=== PATIENT | female | born 1980 ===

== ENCOUNTER 2020-08-19 09:43 | Outpatient (REF) | payer OTHER, SELFPAY ==
--- NOTE | 2020-08-19 09:56 | EMG_ITS ---
HISTORY OF PRESENT ILLNESS: This is a 40-year-old woman with bilateral, right greater than left upper extremity pain and numbness for several years. She has a history of diabetes and is on oral antidiabetic agents. PHYSICAL EXAMINATION: On examination, she is alert and oriented with cranial nerves II through XII are normal. Muscle tone and strength are normal in all 4 extremities. No Tinel or Phalen sign. IMPRESSION: Rule out carpal tunnel syndrome. Nerve conduction EMG study: Moderately severe carpal tunnel syndrome on the right, moderate carpal tunnel syndrome on the left. Normal EMG of the C5-T1 innervated muscles. MEDICATION: Actos. MD QUE Blum/ISIDRA / [id number]
--- NOTE | 2020-08-19 10:23 | XR_ITS ---
EXAMINATION: XR ELBOW, RIGHT CLINICAL INFORMATION: Pain COMPARISON: None TECHNIQUE: AP, lateral, and oblique views of the right elbow. FINDINGS: The bones and soft tissues are normal. No fracture or joint effusion. Alignment is anatomic. Joint spaces are maintained. XR/XR elbow RT 2V IMPRESSION: Normal right elbow.
[2020-08-19 11:09] LABS: Alanine Aminotransferase 26 U/L (0-31); Albumin Level 4.2 g/dL (3.5-5.0); Alkaline Phosphatase 119 U/L (39-117); Anion Gap 14 (12-20); Aspartate Amino Transferase 13 U/L (5-31); Bilirubin Total 0.4 mg/dL (0.0-1.0); Blood Urea Nitrogen 12 mg/dL (9-16); Calcium 9.4 mg/dL (8.4-10.2); Carbon Dioxide 24 mmol/L (22-29); Chloride 107 mmol/L (96-108); Cholesterol 145 mg/dL; Estimated Glomerular Filt Rate > 60; Glucose Fasting 116 mg/dL (60-99); HDL Cholesterol 43 mg/dL; LDL Cholesterol Calculated 83 mg/dl; Potassium 4.6 mmol/l (3.3-5.1); Sodium 140 mmol/L (135-145); Total Protein 7.4 g/dL (6.5-8.0); Triglycerides 99 mg/dL
== END 2020-08-19 09:44 | disposition home or self-care (01) ==
LOC: HO.NEURO 09:43
PROVIDERS: PCP Internal Medicine; Visit Provider Internal Medicine
DX: R20.0 Anesthesia of skin (principal); E11.9 Type 2 diabetes mellitus without complications; E78.5 Hyperlipidemia, unspecified; M25.521 Pain in right elbow
CPT/HCPCS: 36415; 73070; 80053; 80061; 95886; 95913

== ENCOUNTER 2021-01-28 06:42 | Emergency (ER) | payer OTHER, SELFPAY ==
--- NOTE | ~2021-01-28 | XR_ITS ---
EXAMINATION: XR FOOT, RIGHT CLINICAL INFORMATION: Heel pain COMPARISON: None TECHNIQUE: AP, lateral, and oblique views of the right foot. FINDINGS: Moderately sized heel spur and posterior calcaneal enthesophyte. No fracture. No radiopaque foreign body. Normal alignment. XR/XR foot RT min 3V IMPRESSION: Prominent heel spur. No fracture.
[2021-01-28 07:25] VITALS: BP 128/86; PULSE 94; RESP 16; TEMP 36.6; O2SAT 99; BMI 15.2
[2021-01-28] MEDS: Acetaminophen 325 MG TABLET 650 MG PO (10:42)
--- NOTE | 2021-01-28 11:06 | ED_ITS ---
HPI - Extremity Problem General Chief complaint: Extremity Problem Stated complaint: heel pain Time Seen by Provider: 01/28/21 09:20 Source: patient Mode of arrival: ambulatory History of Present Illness HPI Narrative: 40-year-old female with a past medical history of diabetes, hyperlipidemia, asthma, presenting to the ED complaining of right heel pain times days. Reports associated numbness/ tingling. Admits pain worse with ambulation/standing and movement. Denies known injury/trauma or falls, weakness, fever, chills Related Data Home Medications Medication Instructions Recorded Confirmed lancets 28 gauge #100 ea 08/11/20 08/11/20 Previous Rx's Medication Instructions Recorded ProAir HFA 90 mcg/actuation 2 puff INHALATION Q4H PRN 30 Days 08/07/20 aerosol inhaler #8.5 g NS atorvastatin 20 mg tablet 20 mg PO DAILY #30 tab 11/08/20 pioglitazone 15 mg tablet 15 mg PO DAILY #30 tab 11/08/20 blood sugar diagnostic 1 strip MISCELLANEOUS BID 90 Days 01/13/21 #100 strip acetaminophen [Tylenol Extra 500 mg PO Q6H PRN #20 tab 01/28/21 Strength] naproxen 500 mg PO BID PRN 10 Days #20 tab 01/28/21 Allergies Allergy/AdvReac Type Severity Reaction Status Date / Time metformin Allergy Unknown stomach Verified 08/11/20 17:01 upset, diarrhea Review of Systems Review of Systems: Constitutional: No Fever, No Chills Musculoskeletal: + joint pain, No Myalgias, No Joint Swelling Skin: No Skin Lesions, No rash Neuro: No Weakness, + Numbness, + Paresthesias Yes all other systems are reviewed and are negative Neurologic: Denies Sensory deficit (Neuro) [facility] Past Medical History Attestation statement: The following information was validated with the patient. Medical History (Updated 01/28/21 @ 11:12 by RADHA Manuel) Diabetes mellitus Dyslipidemia Hand numbness Mild asthma Right elbow pain Surgical History (Updated 06/17/20 @ 08:41 by CHRISTIANO Harris) History of repair of rotator cuff Family History Family History (Updated 06/17/20 @ 08:42 by CHRISTIANO Harris) Father Diabetes Hypertension Kidney disease Mother Diabetes Fibromyalgia Brother No problems noted. Paternal Grandmother Stroke Social History Social History Alcohol intake: former Cigarettes Per Day: 10 Physical Exam Vital Signs: Vital Signs: Last Vital Signs Temp 97.9 F 01/28/21 07:25 Pulse 94 01/28/21 07:25 Resp 16 01/28/21 07:25 BP 128/86 01/28/21 07:25 Pulse Ox 99 01/28/21 07:25 Body Mass Index 15.2 Const: General: cooperative and healthy appearing Orientation/consciousness: patient oriented x3 Limitations: no limitations HENMT: Head: Yes normal to inspection Ears: hearing grossly normal bilaterally General nose exam: Normal external nose present Face and sinus: Yes normal facial exam Eyes: General: appearance normal, both eyes and all related structures EOM: EOMs intact bilaterally Neck: Neck: Yes normal visual inspection Chest: Chest palpation & inspection: normal inspection of the chest Resp: Effort & Inspection: normal respiratory effort Cardio: Rate: regular rate Peripheral pulses: radial pulses present Skin: Rashes: no rashes Wounds: no wounds Neuro: General: patient oriented x3 Gait exam (Neuro): Normal gait present Sensory Exam: No Sensory deficit (Neuro) Extrem: Other: right heel without deformity. + tender to palpation greater at the plantar aspect. No calf tenderness. No evidence of cellulitis, no warmth, no fluctuance or induration General: Yes normal to inspection Course Course Course Narrative: XR foot RT min 3V IMPRESSION: Prominent heel spur. No fracture. >> patient placed in Raghu wrap and given Podiatry follow-up MDM - Extremity (Nontraumatic) MDM Narrative Medical decision making narrative: 40-year-old female with a past medical history of diabetes, hyperlipidemia, asthma, presenting to the ED complaining of right heel pain times days. On exam VSS, NAD/well appearing, physical exam as above. Concern for fracture versus MSK pain or heel spur. Plan: X-rays Discharge Plan Discharge Clinical Impression: Heel spur Qualifiers: Laterality: right Qualified Code(s): M77.31 - Calcaneal spur, right foot Patient Disposition: Home, Self-Care Instructions: Heel Spur (ED) Additional Instructions: your x-ray showed a prominent heel spur. Wear Raghu wrap at home as needed for comfort. Naproxen as an anti-inflammatory/pain medication, take with food In addition take Tylenol Ice and elevate foot Follow-up with Podiatry as needed Prescriptions: New acetaminophen [Tylenol Extra Strength] 500 mg tablet 500 mg PO Q6H PRN (Reason: pain or fever) Qty: 20 RF: 0 naproxen 500 mg tablet 500 mg PO BID PRN (Reason: pain) 10 Days Qty: 20 RF: 0 No Action albuterol sulfate [ProAir HFA] 90 mcg/actuation HFA aerosol inhaler 2 puff inhalation Q4H PRN (Reason: bronchospasm) 30 Days Qty: 8.5 RF: 6 pioglitazone 15 mg tablet 15 mg PO DAILY Qty: 30 RF: 6 atorvastatin 20 mg tablet 20 mg PO DAILY Qty: 30 RF: 6 blood sugar diagnostic [FreeStyle Lite Strips] Strip 1 strip miscellaneous BID 90 Days Qty: 100 RF: 3 (DME) lancets 28 gauge misc See Rx Instructions lancet topical BID Qty: 100 RF: 0 Referrals: Kevin Rogers MD [Physician] - 1 week Stand Alone Forms: Work/School Release
== END 2021-01-28 11:31 | disposition home or self-care (01) ==
PROVIDERS: Emergency Provider Emergency Medicine Emergency Medical Services; PCP Internal Medicine
DX: M77.31 Calcaneal spur, right foot (principal); E11.9 Type 2 diabetes mellitus without complications; J45.909 Unspecified asthma, uncomplicated; Z79.899 Other long term (current) drug therapy
CPT/HCPCS: 73630; 99283

== ENCOUNTER 2021-04-13 14:58 | Outpatient (REF) | payer OTHER, SELFPAY ==
[2021-04-14 01:18] LABS: CT PCR NOT DETECTED (Not Detect.); NG PCR NOT DETECTED (Not Detect.)
== END 2021-04-13 14:59 | disposition home or self-care (01) ==
LOC: HO.LAB 14:58
PROVIDERS: PCP Internal Medicine; Visit Provider Obstetrics & Gynecology
DX: Z01.411 Encounter for gynecological examination (general) (routine) with abnormal findings (principal); Z11.3 Encounter for screening for infections with a predominantly sexual mode of transmission; R10.2 Pelvic and perineal pain
CPT/HCPCS: 87491; 87591; 99212

== ENCOUNTER 2021-05-03 15:57 | Outpatient (REF) | payer OTHER, SELFPAY ==
--- NOTE | ~2021-05-03 | US_ITS ---
EXAMINATION: US PELVIC AND TRANSVAGINAL CLINICAL INFORMATION: Lower abdominal pain. LMP 04/26/2021. COMPARISON: None TECHNIQUE: Ultrasound of the pelvis is performed using both transabdominal and transvaginal transducers along with Doppler. Transvaginal imaging is performed due to inadequate visualization transabdominally. FINDINGS: Uterus: The uterus is anteverted and measures 8.8 x 3.6 x 5.5 cm. The double wall endometrial thickness is 0.6 mm. The uterus is smooth in contour and has normal myometrial echogenicity. Probable anterior uterine body fibroid measuring 1.2 x 0.7 x 0.9 cm. There are nabothian cysts. Adnexa: Both ovaries are visualized. There is normal color-flow to the adnexa. There is no ovarian torsion. There is no pelvic ascites or fluid collection. Right ovary measures 3.8 x 1.7 x 1.3 cm. Right ovarian volume of 5.8 mL. Left ovary measures 3.1 x 2.8 x 2.3 cm. Left ovarian volume of 10.5 mL. Left ovarian hemorrhagic cyst measuring 1.7 x 1.6 x 1.9 cm. US/US pelvic and transvaginal IMPRESSION: 1. Probable anterior uterine body fibroid measuring 1.2 cm. Otherwise unremarkable uterus and endometrium. 2. Left ovarian probable hemorrhagic cyst measuring 1.9 cm. 3. Sonographically unremarkable right ovary.
== END 2021-05-03 15:58 | disposition home or self-care (01) ==
LOC: HO.US 15:57
PROVIDERS: PCP Internal Medicine; Visit Provider Obstetrics & Gynecology
DX: R10.2 Pelvic and perineal pain (principal)
CPT/HCPCS: 76830; 76856

== ENCOUNTER 2021-05-08 10:58 | Outpatient (REF) | payer OTHER, SELFPAY ==
[2021-05-08 11:40] LABS: Creatinine Urine 234.61 mg/dL; Microalbum/Creatinine Ratio Ur 21.7 ug/mg cr
[2021-05-08 11:50] LABS: Alanine Aminotransferase 19 U/L (0-31); Alkaline Phosphatase 107 U/L (39-117); Anion Gap 11 (12-20); Aspartate Amino Transferase 11 U/L (5-31); Bilirubin Total 0.9 mg/dL (0.0-1.0); Blood Urea Nitrogen 13 mg/dL (9-16); Calcium 9.3 mg/dL (8.4-10.2); Carbon Dioxide 26 mmol/L (22-29); Chloride 110 mmol/L (96-108); Cholesterol 130 mg/dL; Estimated Glomerular Filt Rate > 60; Glucose Fasting 112 mg/dL (60-99); HDL Cholesterol 41 mg/dL; LDL Cholesterol Calculated 73 mg/dl; Potassium 4.7 mmol/L (3.3-5.1); Sodium 142 mmol/L (135-145); Total Protein 6.7 g/dL (6.5-8.0); Triglycerides 80 mg/dL
[2021-05-13 17:12] LABS: Vitamin D 25-OH, D2 <4 ng/mL; Vitamin D 25-OH, D3 25 ng/mL; Vitamin D 25-OH, Total 25 ng/mL (30-100)
== END 2021-05-08 10:59 | disposition home or self-care (01) ==
LOC: HO.LAB 10:58
PROVIDERS: PCP Internal Medicine; Visit Provider Internal Medicine
DX: E11.9 Type 2 diabetes mellitus without complications (principal); E78.5 Hyperlipidemia, unspecified; E55.9 Vitamin D deficiency, unspecified
CPT/HCPCS: 36415; 80053; 80061; 82043; 82306

== ENCOUNTER → 2021-05-12 09:37 | Outpatient (BNVA) | payer OTHER, SELFPAY | PROVIDERS: PCP Internal Medicine; Visit Provider Obstetrics & Gynecology | DX: N83.202 Unspecified ovarian cyst, left side (principal); N93.9 Abnormal uterine and vaginal bleeding, unspecified; D21.9 Benign neoplasm of connective and other soft tissue, unspecified | CPT/HCPCS: 99212 ==

== ENCOUNTER 2021-06-08 14:08 | Outpatient (REF) | payer OTHER, SELFPAY ==
[2021-06-08 15:48] LABS: Hematocrit 37.6 % (37.0-47.0); Hemoglobin 12.2 g/dl (12.0-16.0); Mean Corpuscular HGB Conc 32.4 g/dl (31.0-35.0); Mean Corpuscular Volume 95.7 fL (80.0-98.0); Mean Platelet Volume 10.2 fL (9.4-12.3); Platelet Count 310 X10*3/uL (160-400); Red Blood Count 3.93 X10*6/uL (4.20-5.50); Red Cell Distribution Width 12.8 % (11.0-16.0); White Blood Count 8.7 X10*3/uL (4.8-10.8)
[2021-06-08 16:33] LABS: HCG Quantitative < 2 mIU/mL; TSH reflex Free T4 1.06 uIU/mL (0.32-4.0)
== END 2021-06-08 14:09 | disposition home or self-care (01) ==
LOC: HO.LAB 14:08
PROVIDERS: PCP Internal Medicine; Visit Provider Obstetrics & Gynecology
DX: N93.9 Abnormal uterine and vaginal bleeding, unspecified (principal); D64.9 Anemia, unspecified; E78.5 Hyperlipidemia, unspecified; F17.210 Nicotine dependence, cigarettes, uncomplicated
CPT/HCPCS: 36415; 58100; 84443; 84702; 85027; 88305

== ENCOUNTER → 2021-07-06 15:36 | Outpatient (BNVA) | payer OTHER, SELFPAY | PROVIDERS: PCP Internal Medicine; Visit Provider Obstetrics & Gynecology | DX: N93.9 Abnormal uterine and vaginal bleeding, unspecified (principal); N83.299 Other ovarian cyst, unspecified side; D21.9 Benign neoplasm of connective and other soft tissue, unspecified | CPT/HCPCS: 99212 ==

== ENCOUNTER 2021-08-10 11:33 | Emergency (ER) | payer OTHER, SELFPAY ==
--- NOTE | ~2021-08-10 | XR_ITS ---
EXAMINATION: LEFT WRIST AND LEFT SHOULDER CLINICAL INFORMATION: Fall, pain left wrist COMPARISON: None TECHNIQUE: Left wrist 4 views. Left shoulder 4 views. FINDINGS: Left wrist: There is no visible acute fracture, dislocation or subluxation. No bony erosive changes. The soft tissues are normal. Left shoulder: There is no visible acute fracture, dislocation or subluxation. No bony erosive changes. The soft tissues are normal. XR/XR wrist LT 2V IMPRESSION: Unremarkable left shoulder and left wrist exam.
--- NOTE | ~2021-08-10 | XR_ITS ---
EXAMINATION: LEFT WRIST AND LEFT SHOULDER CLINICAL INFORMATION: Fall, pain left wrist COMPARISON: None TECHNIQUE: Left wrist 4 views. Left shoulder 4 views. FINDINGS: Left wrist: There is no visible acute fracture, dislocation or subluxation. No bony erosive changes. The soft tissues are normal. Left shoulder: There is no visible acute fracture, dislocation or subluxation. No bony erosive changes. The soft tissues are normal. XR/XR shoulder LT min 2V IMPRESSION: Unremarkable left shoulder and left wrist exam.
[2021-08-10 12:57] VITALS: BP 135/77; PULSE 84; RESP 18; TEMP 35.5; O2SAT 98; BMI 32.8
--- NOTE | 2021-08-10 13:15 | ED.FALL ---
HPI - Fall General Chief Complaint: Fall Stated Complaint: fell L shoulder pain Time Seen by Provider: 08/10/21 13:15 Source: patient Mode of arrival: ambulatory Limitations: no limitations History of Present Illness HPI Narrative: 41-year-old female with a history of anxiety, asthma, diabetes who presents to the ER with left shoulder and wrist pain after she fell on ice last night. She reports slipping on the ice when trying to going to her car and falling onto her left shoulder. She did not hit her head or lose consciousness. She is not on any blood thinners. She reports pain overnight in the left shoulder and difficulty sleeping. She denies any weakness, numbness, tingling. She also reports some left-sided wrist pain when she put her hand out to catch her fall. She denies any numbness or tingling in the hand. She has normal hand grasp. She is right-hand dominant. MD complaint: fall Onset (ago): day(s) (1) Fall from: standing Fall witnessed: no Loss of consciousness: none Prolonged down time: no Symptoms prior to fall: none Context: tripped/slipped Location of injury - extremities: left: shoulder and hand Severity: moderate Severity scale (1-10): 7 Quality: aching and spasming Associated symptoms (after fall): denies Related Data Previous Rx's Medication Instructions Recorded blood sugar diagnostic (FreeStyle 1 strip MISCELLANEOUS BID 90 Days 01/13/21 Lite Strips) #100 strip lancets 28 gauge #100 ea 03/01/21 ProAir HFA 90 mcg/actuation 2 puff INHALATION Q4H PRN 30 Days 04/12/21 aerosol inhaler (albuterol sulfate) #8.5 g NS pioglitazone 30 mg tablet 30 mg PO DAILY 90 Days #90 tab 05/06/21 atorvastatin 20 mg tablet 20 mg PO DAILY #30 tab 05/12/21 escitalopram oxalate 5 mg tablet 5 mg PO BEDTIME 90 Days #90 tab 05/12/21 acetaminophen 500 mg tablet 500 mg PO Q6H PRN 30 Days #120 tab 06/09/21 (Tylenol Extra Strength) cyclobenzaprine 10 mg tablet 10 mg PO TID PRN #10 tab 08/10/21 ibuprofen 600 mg tablet 600 mg PO Q8H PRN #20 tab 08/10/21 lidocaine 5 % topical patch 1 patch TOPICAL DAILY #15 ea 08/10/21 Allergies Allergy/AdvReac Type Severity Reaction Status Date / Time nicotine Allergy Intermediate Rash Verified 06/08/21 14:37 metformin AdvReac Intermediate stomach Verified 06/08/21 14:37 upset, diarrhea Review of Systems Review of Systems: Constitutional: No Fever, No Chills Cardiovascular: No Chest Pain, No SOB Gastrointestinal: No Nausea, No Vomiting, No abdominal Pain Musculoskeletal: + joint pain, + Myalgias Skin: No Skin Lesions, No rash Neuro: No Weakness, No Numbness, No Dizziness, No Headache Heme/Lymph: No Bruising PMFSH Past Medical History Medical History Diabetes mellitus Dyslipidemia MARÍA (generalized anxiety disorder) Hand numbness Heel spur Microalbuminuria Mild asthma Right elbow pain Right knee pain Surgical History History of repair of rotator cuff Family History Family History Father Diabetes Hypertension Kidney disease Mother Diabetes Fibromyalgia Brother No problems noted. Paternal Grandmother Stroke Social History Social History Housing: Apartment Alcohol intake: former Patient Tobacco Use Status: Current everyday Tobacco user Tobacco use type: Cigarette Cigarettes Per Day: 10 e-Cigarette/Vaping Use: Never Used Second Hand Smoke Exposure: No Advance Directives: No Advance Directives Information Provided: No Patient : No service: No Current occupational status: employed Current occupational exposures/hazards: No Physical Exam Vital Signs: Vital Signs: Last Vital Signs Temp 96 F L 08/10/21 12:57 Pulse 84 08/10/21 12:57 Resp 18 08/10/21 12:57 BP 135/77 08/10/21 12:57 Pulse Ox 98 08/10/21 12:57 BMI result Body Mass Index 32.8 Appearance: Alert. Oriented X3. No acute distress. HEENT: normal inspection CVS: Normal heart rate and rhythm. Pulses normal. Respiratory: No respiratory distress. Skin: Skin warm and dry. Normal skin color. Normal skin turgor. No rashes. Extremities: Normal inspection of the bilateral shoulders. Left shoulder with tenderness over the AC joint. No palpable separation. Also has some mild soft tissue tenderness and spasm of the upper trapezius. Pain with abduction. Normal inspection and palpation of the left elbow and wrist. Neurovascularly intact distally. Neuro: Oriented X 3. No motor deficit. No sensory deficit. Course Course Course Narrative: 41-year-old female presents to the ER with left-sided shoulder pain after of slip and fall on the ice yesterday. No obvious deformity. She has some anterior and posterior tenderness. Her x-rays are negative. Pain is most likely due to a sprain or contusion of the left shoulder. She would like a sling for support and rest. Will provide prescription for muscle relaxer and anti-inflammatory pain medication. Encourage follow-up with her primary care doctor. Work note provided per request. Critical Care Time Critical Care Time Critical Care Time: No Discharge Plan Discharge Clinical Impression: Sprain of left shoulder Qualifiers: Encounter type: initial encounter Shoulder sprain type: unspecified sprain Qualified Code(s): S43.402A - Unspecified sprain of left shoulder joint, initial encounter Patient Disposition: Home, Self-Care Instructions: Shoulder Sprain (ED) Additional Instructions: Your x-rays today were normal. Your pain is most likely due to a sprain or contusion. Rest your arm and shoulder. Apply ice several times per day. Use the sling to rest your arm for the next 2 days and then slowly work on range of motion as tolerated. Take the prescribed medications as needed for pain. Follow-up with your doctor. If you develop new or worsening symptoms call 911 or come back to the ER for further evaluation. Prescriptions: New cyclobenzaprine 10 mg tablet 10 mg PO TID PRN (Reason: muscle spasm) Qty: 10 RF: 0 lidocaine 5 % adhesive patch,medicated 1 patch topical DAILY Qty: 15 RF: 0 ibuprofen 600 mg tablet 600 mg PO Q8H PRN (Reason: pain) Qty: 20 RF: 0 No Action blood sugar diagnostic [FreeStyle Lite Strips] Strip 1 strip miscellaneous BID 90 Days Qty: 100 RF: 3 (DME) lancets 28 gauge misc See Rx Instructions lancet topical BID Qty: 100 RF: 11 albuterol sulfate [ProAir HFA] 90 mcg/actuation HFA aerosol inhaler 2 puff inhalation Q4H PRN (Reason: bronchospasm) 30 Days Qty: 8.5 RF: 6 pioglitazone 30 mg tablet 30 mg PO DAILY 90 Days Qty: 90 RF: 1 atorvastatin 20 mg tablet 20 mg PO DAILY Qty: 30 RF: 6 escitalopram oxalate 5 mg tablet 5 mg PO BEDTIME 90 Days Qty: 90 RF: 0 acetaminophen [Tylenol Extra Strength] 500 mg tablet 500 mg PO Q6H PRN (Reason: pain or fever) 30 Days Qty: 120 RF: 0 Referrals: Amanda Horan MD [Primary Care Provider] - 1 week (Shoulder pain status post fall) Stand Alone Forms: Work/School Release Interventions: ED Discharge Assessment Last Done: 08/10/21 13:40 Discharge Date/Time: 08/10/21 13:43 Print Language: Djiboutian
== END 2021-08-10 13:43 | disposition home or self-care (01) ==
PROVIDERS: Emergency Provider Emergency Medicine; PCP Internal Medicine
DX: S43.402A Unspecified sprain of left shoulder joint, initial encounter (principal); M25.512 Pain in left shoulder; M25.532 Pain in left wrist; W01.0XXA Fall on same level from slipping, tripping and stumbling without subsequent striking against object, initial encounter; Y93.9 Activity, unspecified; Y92.9 Unspecified place or not applicable; Y99.9 Unspecified external cause status; Z79.899 Other long term (current) drug therapy; F17.210 Nicotine dependence, cigarettes, uncomplicated; Z71.6 Tobacco abuse counseling
CPT/HCPCS: 73030; 73100; 99283; 99284

== ENCOUNTER → 2021-09-06 14:41 | Outpatient (BNVA) | payer OTHER, SELFPAY | PROVIDERS: PCP Internal Medicine; Visit Provider Orthopaedic Surgery | DX: M67.912 Unspecified disorder of synovium and tendon, left shoulder (principal) | CPT/HCPCS: 99212 ==

== ENCOUNTER 2021-09-10 15:56 | Outpatient (REF) | payer OTHER, SELFPAY ==
--- NOTE | ~2021-09-10 | MM_ITS ---
EXAMINATION: MM SCREENING DIGITAL BREAST TOMOSYNTHESIS, BILATERAL CLINICAL INFORMATION: Screening. Asymptomatic. No prior breast imaging. Age 41. No known family history breast cancer. The lifetime risk of breast cancer based on the Tyrer-Cuzick Model is 13%. COMPARISON: None (current study represents initial baseline exam). TECHNIQUE: Digital breast tomosynthesis is performed in both the craniocaudal and mediolateral oblique views along with computer-aided detection (CAD). Synthesized 2D images are generated from the tomosynthesis. Additional bilateral MLO views are provided. FINDINGS: The breasts are heterogeneously dense, which may obscure small masses (ACR BI-RADS breast composition Category c). There is fine fibronodular parenchymal pattern. There is no significant mass or architectural abnormality. No abnormal calcifications. The axilla and skin contours are unremarkable. MM/MM tomosynthesis screening BI IMPRESSION: No mammographic evidence of malignancy. ASSESSMENT: BI-RADS 2: Benign RECOMMENDATION: Routine annual mammography screening. This patient's information was entered into a reminder system with a target due date for their next mammogram.
== END 2021-09-10 15:57 | disposition home or self-care (01) ==
LOC: HO.MAMMO 15:56
PROVIDERS: Visit Provider Internal Medicine
DX: Z12.31 Encounter for screening mammogram for malignant neoplasm of breast (principal)
CPT/HCPCS: 77063; 77067

== ENCOUNTER 2021-09-21 15:44 | Outpatient (REF) | payer OTHER, SELFPAY ==
--- NOTE | ~2021-09-21 | MR_ITS ---
EXAMINATION: MRI SHOULDER WITHOUT CONTRAST, LEFT CLINICAL INFORMATION: Shoulder pain.. COMPARISON: X-ray 08/10/2021. TECHNIQUE: MRI of the shoulder without contrast is performed in a 1.5 Kaci high-field scanner. FINDINGS: CORACOACROMIAL ARCH: Mild acromioclavicular arthritis. No significant fluid in the subacromial subdeltoid space. Undersurface of the acromion is concave. ROTATOR CUFF: Complete tears of the supraspinatus and infraspinatus tendons, tendon retraction to the medial aspect of the humeral head. Teres minor is intact. Mild subscapularis tendinosis. ROTATOR CUFF MUSCLES: Supraspinatus myotendinous retraction, with possible mild atrophy.. BICEPS TENDON: Intact LABRUM/CAPSULE: Intact GLENOHUMERAL JOINT/MARROW: No suspicious marrow signal changes. No fracture. Moderate effusion. MR/MR shoulder LT wo con IMPRESSION: 1. Complete tears of the supraspinatus and infraspinatus tendons. 2. Mild subscapularis tendinosis. 3. Moderate glenohumeral joint effusion. 4. Mild acromioclavicular arthritis.
== END 2021-09-21 15:45 | disposition home or self-care (01) ==
LOC: HO.MRI 15:44
PROVIDERS: PCP Internal Medicine; Visit Provider Orthopaedic Surgery
DX: M67.912 Unspecified disorder of synovium and tendon, left shoulder (principal)
CPT/HCPCS: 73221

== ENCOUNTER 2021-09-27 16:00 | Outpatient (RCR) | payer OTHER, SELFPAY ==
--- NOTE | 2021-08-23 14:56 | MHC.PT.EP ---
[facility] [place] Office [place] Office [place] Office [address] Stacey Salazar [address] [phone] F: [phone] F: [phone] F: [phone] F: [phone] Physical Therapy Plan of Care Date of Evaluation: Date of Surgery: N/A Diagnosis: pain in left shoulder Assessment: Based on pt's shoulder hiking, range of motion, and strength measurements this therapist is suspecting pt has a rotator cuff tear. Referring provider notified that pt may benefit from referral to orthopedic for evaluation and assessment for appropriateness for MRI to determine soft tissue integrity of RTC. pt presents to physical therapy with pain, decreased range of motion, decreased strength, impaired functional mobility, and impaired postural awareness. pt is a fair candidate for skilled PT due to age, potential remediation of impairments, typical disease/condition progression and prognosis, comorbidities, and motivation. pt would benefit from tailored strengthening and stretching exercise program, functional training, postural re-training, neuromuscular re-education, modalities as needed for pain, equipment safety demonstration. Frequency and Duration: The patient will be seen 2x/wk for 6 wks Short Term Goals: pt will be I w/ HEP to promote self-management of condition. pt will improve L shoulder flexion by 10 degrees to promote ease in reaching for objects on higher shelves. Residential Goals: pt will report a statistically significant improvement in self-reported outcome measure, SPADI, to promote return to PLOF. pt will improve L shoulder strength to at least 4/5 in all planes to promote return to lifting and carrying 15-20# objects for work-related tasks. Treatment Plan: Modalities to reduce pain, spasms and effusion. Manual therapy to restore motion and function. Therapeutic exercise to improve strength and flexibility. Neuromuscular re-education for posture and balance. Therapeutic activities to return to functional activities of daily living. Electronically signed by: Madeline Marte PT, DPT Please sign and return to therapist. Thank you for your referral.
--- NOTE | 2021-10-07 14:33 | MHC.PT.DC ---
[facility] [place] Office [place] Office [place] Office [address] Stacey Salazar 140 [facility] [phone] F: [phone] F: [phone] F: [phone] F: [phone] Physical Therapy Discharge Report Diagnosis: pain in left shoulder Date of Surgery: N/A Date of Evaluation: 08/23/21 Date of Discharge: 10/07/21 Treatments to Date: 5 Cancellations to Date: 5 No Shows to Date: 1 Discharge Status: Patient Elected to Stop Discharge Summary: The patient has not been seen in this office for the past two weeks. She recently had an MRI of her shoulder which demonstrated a complete supraspinatus and infraspinatus tear. This therapist did not discuss her results with her but advised she check to see if she has another follow-up scheduled with the orthopedic. She was unsure at the time. She was also advised to continue with her home exercise program at this time. She has not followed-up with our office in over two weeks. She is being discharged from this physical therapy plan of care at this time. Electronically signed by: Madeline Marte PT, DPT Please sign and return to therapist. Thank you for your referral.
== END 2021-10-07 14:34 | disposition home or self-care (01) ==
LOC: HO.PT 16:00
PROVIDERS: PCP Internal Medicine; Visit Provider Nurse Practitioner Family
DX: M25.512 Pain in left shoulder (principal)
CPT/HCPCS: 97110; 97162

== ENCOUNTER 2021-09-28 15:57 | Outpatient (REF) | payer OTHER, SELFPAY ==
--- NOTE | ~2021-09-28 | US_ITS ---
EXAMINATION: US PELVIS CLINICAL INFORMATION: Left ovarian cyst. COMPARISON: Previous pelvic ultrasound April 2021. TECHNIQUE: Ultrasound of the pelvis is performed using both transabdominal and transvaginal transducers along with Doppler. Transvaginal imaging is performed due to inadequate visualization transabdominally. FINDINGS: The uterus is anteverted and slightly retroflexed and measures 8 x 4 x 5.3 cm in dimension. There is a 1 cm hypoechoic lesion, subserosal to the anterior upper uterine body or fundus suggestive of a small fibroid that is stable. The endometrium is normal in thickness measuring 1.1 cm. The right ovary measures 2.9 x 1.2 x 1.1 cm. There is a small newly appreciated nonspecific echogenic focus in the right ovary measuring 2 mm. The left ovary measures 4 x 2.4 x 2.3 cm. There is a 2.7 x 1.6 x 1.8 cm simple left ovarian cyst. The previously identified 1.7 x 1.6 x 1.9 cm complex cyst in the left ovary on April 2021 exam is no longer seen. There is a small newly appreciated nonspecific echogenic focus in the left ovary that measures 2 mm. There is a small amount of fluid surrounding the right ovary. US/US pelvic and transvaginal IMPRESSION: Small uterine fibroid. Resolved 1.7 x 1.6 x 1.9 cm slightly complex left ovarian cyst from April 2021.
== END 2021-09-28 15:58 | disposition home or self-care (01) ==
LOC: HO.US 15:57
PROVIDERS: PCP Internal Medicine; Visit Provider Obstetrics & Gynecology
DX: N83.202 Unspecified ovarian cyst, left side (principal)
CPT/HCPCS: 76830; 76856

== ENCOUNTER → 2021-09-29 14:56 | Outpatient (BNVA) | payer OTHER, SELFPAY | PROVIDERS: PCP Internal Medicine; Visit Provider Obstetrics & Gynecology | DX: N83.299 Other ovarian cyst, unspecified side (principal); N93.9 Abnormal uterine and vaginal bleeding, unspecified | CPT/HCPCS: 99212 ==

== ENCOUNTER → 2021-10-11 14:59 | Outpatient (BNVA) | payer OTHER, SELFPAY | PROVIDERS: PCP Internal Medicine; Visit Provider Orthopaedic Surgery | DX: M75.102 Unspecified rotator cuff tear or rupture of left shoulder, not specified as traumatic (principal) | CPT/HCPCS: 99212 ==

== ENCOUNTER 2021-10-26 15:29 | Outpatient (REF) | payer OTHER, SELFPAY ==
[2021-10-26 16:00] LABS: Appearance Urine CLEAR; Color Urine YELLOW; Glucose Urine UA NEG (NEG); Leukocyte Esterase Urine NEG (NEG); Nitrite Urine NEG (NEG); Specific Gravity - Urine >= 1.030 (1.005-1.025); Urine Blood NEG (NEG); Urine Ketones NEG (NEG); Urine Protein NEG (NEG-TRACE)
[2021-10-26 16:20] LABS: Creatinine Urine 159.16 mg/dL; Total Protein Urine Random < 7 mg/dL (<12)
[2021-10-26 16:24] LABS: Anion Gap 10 (12-20); Blood Urea Nitrogen 19 mg/dL (9-16); Calcium 9.2 mg/dL (8.4-10.2); Carbon Dioxide 25 mmol/L (22-29); Chloride 109 mmol/L (96-108); Estimated Glomerular Filt Rate > 60; Potassium 4.1 mmol/L (3.3-5.1); Sodium 140 mmol/L (135-145)
== END 2021-10-26 15:30 | disposition home or self-care (01) ==
LOC: HO.LAB 15:29
PROVIDERS: PCP Internal Medicine; Visit Provider Internal Medicine Nephrology
DX: E11.22 Type 2 diabetes mellitus with diabetic chronic kidney disease (principal); R80.1 Persistent proteinuria, unspecified
CPT/HCPCS: 36415; 80051; 81003; 82043; 82310; 82565; 84156; 84520

== ENCOUNTER 2021-11-08 09:42 | Outpatient (REF) | payer OTHER, SELFPAY ==
[2021-11-08 15:38] LABS: CT PCR NOT DETECTED (Not Detect.); NG PCR NOT DETECTED (Not Detect.)
== END 2021-11-08 09:43 | disposition home or self-care (01) ==
LOC: HO.LAB 09:42
PROVIDERS: PCP Internal Medicine; Visit Provider Obstetrics & Gynecology
DX: N93.9 Abnormal uterine and vaginal bleeding, unspecified (principal); F17.210 Nicotine dependence, cigarettes, uncomplicated; Z32.02 Encounter for pregnancy test, result negative
CPT/HCPCS: 58300; 81025; 87491; 87591

== ENCOUNTER → 2021-12-06 14:25 | Outpatient (BNVA) | payer OTHER, SELFPAY | PROVIDERS: Visit Provider Obstetrics & Gynecology | DX: Z30.431 Encounter for routine checking of intrauterine contraceptive device (principal) | CPT/HCPCS: 81025; 99212 ==

== ENCOUNTER 2022-01-11 06:00 | Outpatient (REF) | payer OTHER, SELFPAY ==
[2022-01-11 06:15] LABS: MANUAL DIFF FLAG NO
[2022-01-11 07:28] LABS: Basophils Percent Auto 0.5 % (0-2); Eosinophils Absolute Auto 0.6 X10*3/uL (0.0-0.4); Eosinophils Percent Auto 6.8 % (0-4); Hematocrit 41.1 % (37.0-47.0); Hemoglobin 13.1 g/dl (12.0-16.0); Imm Gran Abs Auto 0.03 X10*3/uL (0.00-0.03); Imm Gran Pct Auto 0.3 % (0.0-0.4); Lymphocytes Absolute Auto 2.5 X10*3/uL (1.2-4.9); Lymphocytes Percent Auto 28.9 % (20-40); Mean Corpuscular HGB Conc 31.9 g/dl (31.0-35.0); Mean Corpuscular Hemoglobin 30.5 pg (27.0-33.0); Mean Corpuscular Volume 95.8 fL (80.0-98.0); Mean Platelet Volume 10.4 fL (9.4-12.3); Monocytes Absolute Auto 0.6 X10*3/uL (0.1-1.2); Monocytes Percent Auto 7.2 % (2-11); Neutrophils Absolute Auto 4.8 x10*3/uL (2.0-8.3); Neutrophils Percent Auto 56.3 % (45-73); Platelet Count 306 X10*3/uL (160-400); Red Blood Count 4.29 X10*6/uL (4.20-5.50); Red Cell Distribution Width 12.6 % (11.0-16.0); White Blood Count 8.6 X10*3/uL (4.8-10.8)
[2022-01-11 08:09] LABS: Alanine Aminotransferase 23 U/L (0-31); Alkaline Phosphatase 103 U/L (39-117); Anion Gap 12 (12-20); Aspartate Amino Transferase 24 U/L (5-31); Bilirubin Total 0.5 mg/dL (0.0-1.0); Blood Urea Nitrogen 17 mg/dL (9-16); Calcium 8.8 mg/dL (8.4-10.2); Carbon Dioxide 24 mmol/L (22-29); Chloride 108 mmol/L (96-108); Cholesterol 145 mg/dL; Estimated Glomerular Filt Rate > 60; Glucose Fasting 182 mg/dL (60-99); HDL Cholesterol 34 mg/dL; Iron 78 mcg/dL (30-160); LDL Cholesterol Calculated 91 mg/dl; Percent Iron Saturation 24 % (15-50); Potassium 4.3 mmol/L (3.3-5.1); Sodium 140 mmol/L (135-145); Total Iron Binding Capacity 327 mcg/dL (228-428); Total Protein 6.9 g/dL (6.5-8.0); Triglycerides 101 mg/dL; Unsaturated Iron Binding 249 ug/dL
[2022-01-11 09:21] LABS: Creatinine Urine 182.87 mg/dL; Microalbum/Creatinine Ratio Ur 7.6 ug/mg cr
== END 2022-01-11 06:01 | disposition home or self-care (01) ==
LOC: HO.LAB 06:00
PROVIDERS: PCP Internal Medicine; Visit Provider Internal Medicine
DX: E11.9 Type 2 diabetes mellitus without complications (principal); E78.5 Hyperlipidemia, unspecified; D64.9 Anemia, unspecified
CPT/HCPCS: 36415; 80053; 80061; 82043; 83540; 85025

== ENCOUNTER 2022-05-18 06:07 | Outpatient (REF) | payer OTHER, SELFPAY ==
[2022-05-18 08:05] LABS: Alanine Aminotransferase 16 U/L (0-31); Albumin Level 4.2 g/dL (3.5-5.0); Alkaline Phosphatase 107 U/L (39-117); Anion Gap 14 (12-20); Aspartate Amino Transferase 11 U/L (5-31); Bilirubin Total 0.6 mg/dL (0.0-1.0); Blood Urea Nitrogen 14 mg/dL (9-16); Calcium 9.1 mg/dL (8.4-10.2); Carbon Dioxide 25 mmol/L (22-29); Chloride 107 mmol/L (96-108); Cholesterol 124 mg/dL; Estimated Glomerular Filt Rate > 60; Glucose Fasting 144 mg/dL (60-99); HDL Cholesterol 30 mg/dL; LDL Cholesterol Calculated 77 mg/dl; Potassium 4.2 mmol/L (3.3-5.1); Sodium 142 mmol/L (135-145); Triglycerides 87 mg/dL
[2022-05-18 08:08] LABS: Creatinine Urine 207.09 mg/dL; Microalbum/Creatinine Ratio Ur 14.9 ug/mg cr
== END 2022-05-18 06:08 | disposition home or self-care (01) ==
LOC: HO.LAB 06:07
PROVIDERS: PCP Internal Medicine; Visit Provider Internal Medicine
DX: E11.9 Type 2 diabetes mellitus without complications (principal); E78.5 Hyperlipidemia, unspecified
CPT/HCPCS: 36415; 80053; 80061; 82043

== ENCOUNTER 2022-06-20 16:12 | Outpatient (REF) | payer OTHER, SELFPAY ==
[2022-06-29 04:57] LABS: HPV mRNA E6/E7 rflx Not Detected (Not Detected)
== END 2022-06-20 16:13 | disposition home or self-care (01) ==
LOC: HO.LNP 16:12
PROVIDERS: Visit Provider Advanced Practice Midwife
DX: Z01.419 Encounter for gynecological examination (general) (routine) without abnormal findings (principal); Z11.51 Encounter for screening for human papillomavirus (HPV)
CPT/HCPCS: 87624; 88142

== ENCOUNTER 2022-09-12 15:34 | Outpatient (REF) | payer OTHER, SELFPAY ==
--- NOTE | ~2022-09-12 | MM_ITS ---
EXAMINATION: MM SCREENING DIGITAL BREAST TOMOSYNTHESIS, BILATERAL CLINICAL INFORMATION: Screening. Asymptomatic. The lifetime risk of breast cancer based on the Tyrer-Cuzick Model is 10%. COMPARISON: Mammography: 09/10/2021 (baseline) TECHNIQUE: Digital breast tomosynthesis is performed in both the craniocaudal and mediolateral oblique views along with computer-aided detection (CAD). Synthesized 2D images are generated from the tomosynthesis. FINDINGS: The breasts are heterogeneously dense, which may obscure small masses (ACR BI-RADS breast composition Category c). There is fibronodular parenchymal pattern again noted. Left breast shows no significant mass or developing density. Neither breast shows abnormal calcifications or architectural abnormality. The axilla are unremarkable. Right breast tomography shows smooth nodular asymmetry mid outer breast possibly obscured on prior imaging. Patient will be recalled for additional evaluation. MM/MM tomosynthesis screening BI IMPRESSION: Right: -Smooth nodular asymmetry mid outer breast. Left: -No mammographic evidence of malignancy. ASSESSMENT: BI-RADS 0: Incomplete - Need Additional Imaging Evaluation RECOMMENDATION: 1. Additional views of the right breast (spot CC outer, spot ML). 2. Targeted ultrasound if warranted after review of the additional views. 3. Radiology department staff will contact the patient for additional imaging. This patient's information was entered into a reminder system with a target due date for their next mammogram.
== END 2022-09-12 15:35 | disposition home or self-care (01) ==
LOC: HO.MAMMO 15:34
PROVIDERS: PCP Internal Medicine; Visit Provider Advanced Practice Midwife
DX: Z12.31 Encounter for screening mammogram for malignant neoplasm of breast (principal)
CPT/HCPCS: 77063; 77067

== ENCOUNTER 2022-10-03 08:49 | Outpatient (REF) | payer OTHER, SELFPAY ==
[2022-10-03 09:54] LABS: Alanine Aminotransferase 26 U/L (0-31); Albumin Level 3.9 g/dL (3.5-5.0); Alkaline Phosphatase 100 U/L (39-117); Anion Gap 11 (12-20); Aspartate Amino Transferase 12 U/L (5-31); Bilirubin Total 0.7 mg/dL (0.0-1.0); Blood Urea Nitrogen 13 mg/dL (9-16); Calcium 8.5 mg/dL (8.4-10.2); Carbon Dioxide 25 mmol/L (22-29); Chloride 110 mmol/L (96-108); Cholesterol 158 mg/dL; Estimated Glomerular Filt Rate > 60; Glucose Fasting 166 mg/dL (60-99); HDL Cholesterol 35 mg/dL; LDL Cholesterol Calculated 89 mg/dl; Potassium 4.5 mmol/L (3.3-5.1); Sodium 141 mmol/L (135-145); Total Protein 6.5 g/dL (6.5-8.0); Triglycerides 174 mg/dL
[2022-10-03 10:02] LABS: Creatinine Urine 176.77 mg/dL; Microalbum/Creatinine Ratio Ur 12.4 ug/mg cr
== END 2022-10-03 08:50 | disposition home or self-care (01) ==
LOC: HO.LAB 08:49
PROVIDERS: PCP Internal Medicine; Visit Provider Internal Medicine
DX: E11.9 Type 2 diabetes mellitus without complications (principal); E55.9 Vitamin D deficiency, unspecified; E78.5 Hyperlipidemia, unspecified
CPT/HCPCS: 36415; 80053; 80061; 82043; 82306

== ENCOUNTER 2022-10-12 10:41 | Outpatient (REF) | payer OTHER, SELFPAY ==
--- NOTE | ~2022-10-12 | MM_ITS ---
EXAMINATION: MM DIAGNOSTIC DIGITAL BREAST TOMOSYNTHESIS, RIGHT US TARGETED, RIGHT CLINICAL INFORMATION: Density superior aspect of the right breast. COMPARISON: Mammography: 09/12/2022 and studies dating back to 09/10/2021. TECHNIQUE: Digital breast tomosynthesis is performed. 2D images are generated from the tomosynthesis. The following views are obtained: Spot compression craniocaudal and spot compression 90-degree mediolateral views. Targeted right breast ultrasound superior aspect. FINDINGS: The breasts are heterogeneously dense, which may obscure small masses (ACR BI-RADS breast composition Category c). There is persistence of a few circumscribed densities superior aspect of the right breast with the largest measuring approximately 1.0 x 0.8 cm and 1.2 x 0.9 cm. These are well circumscribed. Targeted right breast ultrasound, lateral aspect, demonstrates a few simple cysts at approximately the 8 o'clock position with the dominant cysts measuring 7 x 8 x 6 mm and 6 x 4 x 8 mm. These are anechoic without internal vascularity with smooth gutierrez and increased through-sound transmission. They are wider than they are tall. Results are discussed with the patient at time of visit. MM/MM tomosynthesis added views R IMPRESSION: Bilateral densities of the right breast represent simple cysts. ASSESSMENT: BI-RADS 2: Benign. RECOMMENDATION: Routine annual mammography screening due in 12 months. This patient's information was entered into a reminder system with a target due date for their next mammogram.
== END 2022-10-12 10:42 | disposition home or self-care (01) ==
LOC: HO.MAMMO 10:41
PROVIDERS: PCP Internal Medicine; Visit Provider Advanced Practice Midwife
DX: N64.89 Other specified disorders of breast (principal)
CPT/HCPCS: 76642; 77061; 77065

== ENCOUNTER 2023-02-18 10:43 | Outpatient (REF) | payer OTHER, SELFPAY ==
[2023-02-18 12:10] LABS: Creatinine Urine 77.08 mg/dL; Microalbum/Creatinine Ratio Ur 16.8 ug/mg cr
[2023-02-18 12:18] LABS: Alanine Aminotransferase 31 U/L (0-31); Albumin Level 4.2 g/dL (3.5-5.0); Alkaline Phosphatase 127 U/L (39-117); Anion Gap 11 (12-20); Aspartate Amino Transferase 15 U/L (5-31); Bilirubin Total 0.6 mg/dL (0.0-1.0); Blood Urea Nitrogen 12 mg/dL (9-16); Calcium 9.3 mg/dL (8.4-10.2); Carbon Dioxide 27 mmol/L (22-29); Chloride 110 mmol/L (96-108); Cholesterol 122 mg/dL; Estimated Glomerular Filt Rate > 60; Glucose Fasting 121 mg/dL (60-99); HDL Cholesterol 38 mg/dL; LDL Cholesterol Calculated 68 mg/dl; Potassium 4.3 mmol/L (3.3-5.1); Sodium 144 mmol/L (135-145); Total Protein 7.5 g/dL (6.5-8.0); Triglycerides 81 mg/dL
[2023-02-18 12:34] LABS: Vitamin D 25-OH Total 34.9 ng/mL (>30)
== END 2023-02-18 10:44 | disposition home or self-care (01) ==
LOC: HO.LAB 10:43
PROVIDERS: PCP Internal Medicine; Visit Provider Internal Medicine
DX: E78.5 Hyperlipidemia, unspecified (principal); E11.9 Type 2 diabetes mellitus without complications; E55.9 Vitamin D deficiency, unspecified
CPT/HCPCS: 36415; 80053; 80061; 82043; 82306

== ENCOUNTER 2023-02-22 15:58 | Outpatient (AMB) | payer OTHER, SELFPAY ==
--- NOTE | 2023-02-22 16:02 | A.OFFPC_ITS ---
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: No Accompanied by: Self / Same As Patient Allergies nicotine Allergy (Intermediate, Verified 02/22/23 16:15) Rash metformin Adverse Reaction (Intermediate, Verified 02/22/23 16:15) stomach upset, diarrhea Medication List - Last Reconciled 02/22/23 by Amanda Raphael MD acetaminophen (Tylenol Extra Strength) 500 mg PO Q6H PRN 30 days albuterol sulfate 2.5 mg (3 mL) inhalation Q6H PRN 30 days atorvastatin 40 mg PO BEDTIME 90 days blood sugar diagnostic (FreeStyle Lite Strips) 1 strip miscellaneous BID 90 days blood-glucose meter (FreeStyle Lite Meter kit) As directed cyclobenzaprine 10 mg PO TID PRN fluticasone propionate 44 mcg/actuation (Flovent HFA) 2 puffs inhalation BID 30 days ibuprofen 800 mg PO Q8H PRN lancets As directed levonorgestrel (Mirena) intrauterine DAILY lidocaine 5% 1 patch topical DAILY nicotine 1 patch transdermal DAILY 28 days pioglitazone 45 mg PO DAILY 90 days semaglutide (Ozempic) 0.25 mg (0.4 mL) subcut QWEEK 30 days tramadol 50 mg PO BID PRN 10 days Ventolin HFA 90 mcg/actuation (albuterol sulfate) 2 puffs inhalation Q6H PRN 30 days NS Tobacco use date assessed: 10/12/22 Dental Screening Dental Screen Date: 02/22/23 Did you have a dental visit in the last 12 months?: No Did you have a dental problem in the last 6 months where you did not have access to dental care?: No Was dental information given to patient?: Patient has dentist HPI HPI Comments History of Present Illness Details This is a 42-year-old female with diabetes mellitus type 2, dyslipidemia and mild asthma that complains trigger finger in right middle finger that has been bothering her for few weeks. A1c still mildly elevated and I will increase Ozempic. LDL within goal. Asthma stable and use rescue inhaler 1 to 2 times a month. I will refer her to Ortho for her trigger finger. [facility] Medical History (Updated 02/22/23 @ 16:25 by Amanda Raphael MD) Diabetes mellitus Dyslipidemia MARÍA (generalized anxiety disorder) Hand numbness Heel spur Microalbuminuria Mild asthma Right elbow pain Right knee pain Surgical History History of repair of rotator cuff Family History Father Diabetes Hypertension Kidney disease Mother Diabetes Fibromyalgia Brother No problems noted. Paternal Grandmother Stroke Social History Housing: Apartment Alcohol intake: former Patient Tobacco Use Status: Current everyday Tobacco user Tobacco use type: Cigarette Cigarettes Per Day: 8 e-Cigarette/Vaping Use: Never Used Second Hand Smoke Exposure: No service: No Current occupational status: employed Current occupational exposures/hazards: No Cognitive needs: No Hearing needs: No Vision needs: Yes (Glasses) Female Reproductive History Menstrual Age of Menarche: 13 Questionnaire Thrive Questionnaire Date Thrive assessed: 10/12/22 MARÍA-7 AMB Questionnaire MARÍA-7 Date MARÍA - 7 assessed: 10/12/22 Source: Developed by Drs. Isiah Garcia, Maria Bullard, Jude Todd and colleagues, with an educational amara from [email or web address]. Review of Systems Const All systems reviewed & are unremarkable except as noted in HPI and below Eyes Reports no additional complaints, Denies change in vision and Denies other visual disturbances Card Denies chest pain at rest, Denies chest pain with activity, Denies edema, Denies irregular heart rhythm, Denies claudication, Denies dyspnea, Denies dyspnea on exertion, Denies orthopnea, Denies paroxysmal nocturnal dyspnea and Denies slow heart rate Resp Denies cough, Denies dyspnea and Denies dyspnea on exertion GI Denies abdominal pain, Denies change in bowel habits, Denies excessive flatus, Denies nausea and Denies vomiting Denies urinary incontinence, Denies urinary hesitancy and Denies urinary urgency Musc Denies abnormal gait, Denies atrophy, Denies deformity and Denies limited range of motion Skin/Breast Denies bleeding lesions, Denies changing lesions and Denies rash Neuro Denies abnormal gait and Denies lack of coordination Physical exam (Primary Care) Vital Signs: Last Vital Signs BP 112/72 02/22/23 16:03 BMI result Body Mass Index 34.6 Tobacco/Smoking Status: Tobacco use Status Tobacco use date assessed 10/12/22 02/22/23 16:09 Patient Tobacco Use Status Current everyday Tobacco 02/22/23 16:09 Tobacco use type Cigarette 02/22/23 16:09 e-Cigarette/Vaping Use Never Used 02/22/23 16:09 Thrive Assessment: Date of Thrive Assessment Date Thrive assessed 10/12/22 02/22/23 16:09 Eyes General: appearance normal, both eyes and all related structures Eyelids: Yes eyelids normal Conjunctivae: conjunctivae normal Neck Neck: Yes normal visual inspection and Yes supple Resp Effort & Inspection: normal respiratory effort Auscultation: clear to auscultation bilaterally Cardio Jugular venous distension: no JVD Rate: regular rate Rhythm: regular rhythm Heart sounds: S1 normal heart sound present and S2 normal heart sound present Extrem General: Yes full ROM Results AMB Hemoglobin A1c AMB Hemoglobin A1c 7.3 % Last Edit by CHRISTIANO Marley on 02/22/23 16:1 9 Results Reviewed Results Reviewed: Laboratory Last Values Hgb A1c (Clinic) 7.3 % (4.0-6.0) H 02/22/23 16:10 Assessment and Plan Assessment & Plan (1) Diabetes mellitus: Code(s): E11.9 - Type 2 diabetes mellitus without complications Qualifiers: Diabetes mellitus type: type 2 Diabetes mellitus terminal operations supervisor insulin use: without terminal operations supervisor use Diabetes mellitus complication status: without complication Qualified Code(s): E11.9 - Type 2 diabetes mellitus without complications Plan: Continue Actos. Increase Ozempic. A1c goal is equal or less than 7% (2) Dyslipidemia: Code(s): E78.5 - Hyperlipidemia, unspecified Plan: Continue statins. LDL goal is less than 70. (3) Mild asthma: Code(s): J45.909 - Unspecified asthma, uncomplicated Plan: Use rescue inhaler as needed. (4) Trigger finger, right middle finger: Code(s): M65.331 - Trigger finger, right middle finger Plan: Referred to Ortho Orders: Orders Comprehensive [place]. Panel Fast 4 Months E11.9 - Type 2 diabetes mellitus without complications Lipid Panel 4 Months E78.5 - Hyperlipidemia, unspecified Vitamin D 25-OH Total 4 Months E55.9 - Vitamin D deficiency, unspecified Microalbumin, Random (w Creat) 4 Months E11.9 - Type 2 diabetes mellitus without complications AMB Hemoglobin A1c Today E11.9 - Type 2 diabetes mellitus without complications Referrals Orthopedics Referral M65.331 - Trigger finger, right middle finger Medications: New semaglutide (Ozempic) 1 mg (0.75 mL) subcut QWEEK 30 days 3.75 mL 3RF E11.9 - Type 2 diabetes mellitus without complications Discontinued semaglutide (Ozempic) for 4 weeks Discontinued Reason: Patient Completed Course 0.25 mg (0.4 mL) subcut QWEEK 30 days 2 mL 6RF E11.9 - Type 2 diabetes mellitus without complications Coding Level of Care Code Est Pt Level 4 (54314) Diagnoses Diabetes mellitus E11.9 Diabetes mellitus type: type 2 Diabetes mellitus terminal operations supervisor insulin use: without halfway use Diabetes mellitus complication status: without complication Dyslipidemia E78.5 Mild asthma J45.909 Trigger finger, right middle finger M65.331 Time Spent (min) 23
[2023-02-22 16:03] VITALS: BP 112/72; BMI 34.6
== END 2023-02-22 16:24 | disposition home or self-care (01) ==
PROVIDERS: PCP Internal Medicine; Visit Provider Internal Medicine
DX: E11.9 Type 2 diabetes mellitus without complications (principal); E78.5 Hyperlipidemia, unspecified; J45.909 Unspecified asthma, uncomplicated; M65.331 Trigger finger, right middle finger
CPT/HCPCS: 83036; 99214

== ENCOUNTER 2023-05-17 14:43 | Outpatient (AMB) | payer OTHER, SELFPAY ==
--- NOTE | 2023-05-17 14:50 | A.OFFVIS_ITS ---
Intake Vital Signs 05/17/23 14:59 Height 5 ft 7 in Weight 221 lb BMI 34.6 Intake Visit Reasons: Trigger finger RT middle finger Intake Note: Sienna a 42 year old right hand dominant female presents today for an evaluation of bilateral middle fingers. Patient reports she wakes up with a stiff/locked finger and with pain in her volar MCP due to having to pop finger back in place. Hx of carpal tunnel. Denies recent injury. Allergies nicotine Allergy (Intermediate, Verified 02/22/23 16:15) Rash metformin Adverse Reaction (Intermediate, Verified 02/22/23 16:15) stomach upset, diarrhea HPI Trigger finger RT middle finger HPI Details 42-year-old female who presents to the o ffice today for evaluation of right middle finger pain for about 3 months. She states she has pain, catching and locking in the volar aspect of MCP of her middle finger. She also c/o waking up with a stiff and locked finger and experiences pain to pop it back to the place. She has not had any recent injury. She has a history of carpal tunnel syndrome. [facility] Medical History Diabetes mellitus Dyslipidemia MARÍA (generalized anxiety disorder) Hand numbness Heel spur Microalbuminuria Mild asthma Right elbow pain Right knee pain Surgical History History of repair of rotator cuff Family History Father Diabetes Hypertension Kidney disease Mother Diabetes Fibromyalgia Brother No problems noted. Paternal Grandmother Stroke Social History Housing: Apartment Alcohol intake: former Patient Tobacco Use Status: Current everyday Tobacco user Tobacco use type: Cigarette Cigarettes Per Day: 8 e-Cigarette/Vaping Use: Never Used Second Hand Smoke Exposure: No service: No Current occupational status: employed Current occupational exposures/hazards: No Cognitive needs: No Hearing needs: No Vision needs: Yes (Glasses) Female Reproductive History Menstrual Age of Menarche: 13 Review of Systems Const All systems reviewed & are unremarkable except as noted in HPI and below Physical Exam Vital Signs: BMI result Body Mass Index 34.6 Extrem Other: Right middle finger: Tender nodule along the A1 grace with active catching and locking. NVI. Assessment & Plan Assessment & Plan (1) Trigger finger, right middle finger: Code(s): M65.331 - Trigger finger, right middle finger Plan She is going to use a night splint to help reduce her inflammation to see if this resolves the locking. If symptoms persist or worsens, patient will contact the office to discuss trigger release. Patient Instructions: Scribed for Arnel iLra PA-C, by Nile Smith certified medical asst, on 05/17/2023 at 3:00 PM EST. I, Arnel Lira PA-C, have personally reviewed and agree with the information entered by the scribe. Coding Level of Care Code New Pt Level 3 (75295) Diagnoses Trigger finger, right middle finger M65.331
[2023-05-17 14:59] VITALS: BMI 34.6
== END 2023-05-17 15:18 | disposition home or self-care (01) ==
PROVIDERS: PCP Internal Medicine; Visit Provider Physician Assistant
DX: M65.331 Trigger finger, right middle finger (principal); M65.332 Trigger finger, left middle finger
CPT/HCPCS: 99213

== ENCOUNTER → 2023-05-17 14:43 | Outpatient (BNVA) | payer OTHER, SELFPAY | PROVIDERS: PCP Internal Medicine; Visit Provider Physician Assistant | DX: M65.331 Trigger finger, right middle finger (principal) | CPT/HCPCS: 99212 ==

== ENCOUNTER 2023-06-12 10:57 | Outpatient (AMB) | payer OTHER, SELFPAY ==
--- NOTE | 2023-06-12 11:13 | MHC.OFFVIS ---
Intake Vital Signs 06/12/23 11:21 Height 5 ft 7 in Weight 221 lb BMI 34.6 Intake Visit Reasons: ov-Trigger finger RT middle finger Intake Note: Sienna 42 yr old female presents today for her follow up visit for her bilateral middle trigger finger. States her left is currently worse. Patient last seen with Severiano Hoover who advise patient to use a finger splint. Currently patient states her pain has increase and her finger s locking more often. Patient would like to discuss surgical intervention vs injection. Allergies nicotine Allergy (Intermediate, Verified 06/12/23 11:20) Rash metformin Adverse Reaction (Intermediate, Verified 06/12/23 11:20) stomach upset, diarrhea HPI ov-Trigger finger RT middle finger HPI Details The patient is a 42-year-old woman who complains of bilateral middle finger trigger fingers. She was seen by RADHA Hoover who gave her some finger splints to wear at night. She said this is not helping. The left middle finger bothers her more than the right. She denies problems with numbness and tingling. [facility] Medical History Diabetes mellitus Dyslipidemia MARÍA (generalized anxiety disorder) Hand numbness Heel spur Microalbuminuria Mild asthma Right elbow pain Right knee pain Surgical History History of repair of rotator cuff Family History Father Diabetes Hypertension Kidney disease Mother Diabetes Fibromyalgia Brother No problems noted. Paternal Grandmother Stroke Social History Housing: Apartment Alcohol intake: former Patient Tobacco Use Status: Current everyday Tobacco user Tobacco use type: Cigarette Cigarettes Per Day: 8 e-Cigarette/Vaping Use: Never Used Second Hand Smoke Exposure: No service: No Current occupational status: employed Current occupational exposures/hazards: No Cognitive needs: No Hearing needs: No Vision needs: Yes (Glasses) Female Reproductive History Menstrual Age of Menarche: 13 Physical Exam Vital Signs: BMI result Body Mass Index 34.6 Extrem Other: The patient was alert oriented and in no acute distress. She can make a fist and extend her digits bilaterally. She does have visible and palpable locking and catching of the left middle finger, and locking catching of the right middle finger. With regards to the left middle finger, she also has tenderness over the A1 grace. She also is developing a slight flexion contracture at the PIP joint which is reducible to full extension when she places her hand flat on the table. This causes discomfort in line with the flexor tendon. Sensation intact to the tips of all digits. No intrinsic or thenar wasting. No swelling or erythema. Cap refill brisk. Office Procedures Fracture Care Details: No fracture, injection [id number] Fracture Billing Code: Fracture Billing Code Results Reviewed Results Reviewed: 06/12/23 11:17 Lidocaine HCl 1 % [Xylocaine 1 %] 2 ml .ROUTE .STK-MED ONE dexAMETHasone sod phosphate [Decadron] 4 mg .ROUTE .STK-MED ONE Assessment & Plan Assessment & Plan (1) Trigger finger, right middle finger: Code(s): M65.331 - Trigger finger, right middle finger (2) Trigger finger, left middle finger: Code(s): M65.332 - Trigger finger, left middle finger Plan Assessment and plan: 1. Left middle finger trigger finger With a slight, and reducible PIP flexion contracture This is her most symptomatic complaint 2. Right middle finger trigger finger I educated her about these conditions. We discussed operative and non operative treatment options. I am recommending a steroid injection. She wishes to proceed with a steroid injection for the left middle finger today. Injection #1: The risks and benefits of a steroid injection including but not limited to risk of damage to blood vessels, nerves, tendons, infection, skin bleaching, failure to improve symptoms, increased pain, and possible need for further injections or other intervention were discussed with the patient and the patient wishes to proceed with the steroid injection. Once consent was obtained, I sterilely prepped the area over the A1 grace of the flexor tendon sheath of the left middle finger. I then injected the flexor tendon sheath with a combination of 1 mL of dexamethasone (4mg/ml), and 1% lidocaine. The patient tolerated the procedure well with no complications. If the patient continues to have locking and catching 4-6 weeks following this injection, they may call to schedule appointment to be seen for possible A1 graec release. If she has good pain relief from the left middle finger injection, she may contact us sooner for a right middle finger trigger injection. She did not want the right middle finger trigger injection today. Coding Level of Care Code Est Pt Level 3 (43901) Diagnoses Trigger finger, right middle finger M65.331 Trigger finger, left middle finger M65.332 CPT Codes Fracture Care - Fracture Billing Code: Fracture Billing Code ([id number])
[2023-06-12 11:21] VITALS: BMI 34.6
== END 2023-06-12 11:50 | disposition home or self-care (01) ==
PROVIDERS: PCP Internal Medicine; Visit Provider Orthopaedic Surgery
DX: M65.331 Trigger finger, right middle finger (principal); M65.332 Trigger finger, left middle finger
CPT/HCPCS: 20550; 99213

== ENCOUNTER → 2023-06-12 10:57 | Outpatient (BNVA) | payer OTHER, SELFPAY | PROVIDERS: PCP Internal Medicine; Visit Provider Orthopaedic Surgery | DX: M65.331 Trigger finger, right middle finger (principal); M65.332 Trigger finger, left middle finger | CPT/HCPCS: 20550; 99212; J1100 ==

== ENCOUNTER 2023-06-23 10:27 | Outpatient (REF) | payer OTHER, SELFPAY ==
[2023-06-23 11:27] LABS: Alanine Aminotransferase 32 U/L (0-31); Albumin Level 3.9 g/dL (3.5-5.0); Alkaline Phosphatase 104 U/L (39-117); Anion Gap 9 (12-20); Aspartate Amino Transferase 14 U/L (5-31); Bilirubin Total 0.5 mg/dL (0.0-1.0); Blood Urea Nitrogen 12 mg/dL (9-16); Calcium 8.9 mg/dL (8.4-10.2); Carbon Dioxide 26 mmol/L (22-29); Chloride 110 mmol/L (96-108); Cholesterol 100 mg/dL (<200); Estimated Glomerular Filt Rate > 60; Glucose Fasting 123 mg/dL (60-99); HDL Cholesterol 32 mg/dL (>40); LDL Cholesterol Calculated 52 mg/dL (<100); Potassium 4.1 mmol/L (3.3-5.1); Sodium 141 mmol/L (135-145); Total Protein 6.9 g/dL (6.5-8.0); Triglycerides 83 mg/dL (<150)
[2023-06-23 11:48] LABS: Creatinine Urine 181.29 mg/dL; Microalbum/Creatinine Ratio Ur 7.1 ug/mg cr (<30)
== END 2023-06-23 10:28 | disposition home or self-care (01) ==
LOC: HO.LAB 10:27
PROVIDERS: PCP Internal Medicine; Visit Provider Internal Medicine
DX: E78.5 Hyperlipidemia, unspecified (principal); E11.9 Type 2 diabetes mellitus without complications; E55.9 Vitamin D deficiency, unspecified
CPT/HCPCS: 36415; 80053; 80061; 82043; 82306; 82570

== ENCOUNTER 2023-06-28 16:00 | Outpatient (AMB) | payer OTHER, SELFPAY ==
[2023-06-28 16:05] VITALS: BP 132/70; BMI 34.0
--- NOTE | 2023-06-28 16:05 | A.OFFPC_ITS ---
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 Required: No Accompanied by: Self / Same As Patient Allergies nicotine Allergy (Intermediate, Verified 06/28/23 16:20) Rash metformin Adverse Reaction (Intermediate, Verified 06/28/23 16:20) stomach upset, diarrhea Medication List - Last Reconciled 06/28/23 by Amanda Raphael MD acetaminophen (Tylenol Extra Strength) 500 mg PO Q6H PRN 30 days albuterol sulfate 2.5 mg (3 mL) inhalation Q6H PRN 30 days atorvastatin 40 mg PO BEDTIME 90 days blood sugar diagnostic (FreeStyle Lite Strips) 1 strip miscellaneous BID 90 days blood-glucose meter (FreeStyle Lite Meter kit) As directed cyclobenzaprine 10 mg PO TID PRN fluticasone propionate 44 mcg/actuation (Flovent HFA) 2 puffs inhalation BID 30 days ibuprofen 800 mg PO Q8H PRN lancets As directed levonorgestrel (Mirena) intrauterine DAILY lidocaine 5% 1 patch topical DAILY nicotine 1 patch transdermal DAILY 28 days pioglitazone 45 mg PO DAILY 90 days semaglutide (Ozempic) 1 mg (0.75 mL) subcut QWEEK 30 days tramadol 50 mg PO BID PRN 10 days Ventolin HFA 90 mcg/actuation (albuterol sulfate) 2 puffs inhalation Q6H PRN 30 days NS Tobacco use date assessed: 10/12/22 HPI HPI Comments History of Present Illness Details This is a 42-year-old female with diabetes mellitus type 2, hyperlipidemia and asthma that complains of a maculopapular pruritic rash in her abdomen that started about 3 days ago. She denies any new clothing, new detergent or new soap. No fever or joint pain. Will start her on hydrocortisone cream. A1c still elevated but has improved and I will increase Ozempic due to this matter. LDL within goal. Use rescue inhaler 1 to 2 times a month and asthma has been stable with Flovent. No chest pain or shortness of breath. [facility] Medical History (Updated 06/28/23 @ 17:21 by Amanda Raphael MD) MARÍA (generalized anxiety disorder) Right knee pain Microalbuminuria Heel spur Right elbow pain Hand numbness Mild asthma Dyslipidemia Diabetes mellitus Surgical History History of repair of rotator cuff Family History Father Diabetes Hypertension Kidney disease Mother Diabetes Fibromyalgia Brother No problems noted. Paternal Grandmother Stroke Social History Housing: Apartment Alcohol intake: former Patient Tobacco Use Status: Current everyday Tobacco user Tobacco use type: Cigarette Cigarettes Per Day: 8 e-Cigarette/Vaping Use: Never Used Second Hand Smoke Exposure: No service: No Current occupational status: employed Current occupational exposures/hazards: No Cognitive needs: No Hearing needs: No Vision needs: Yes (Glasses) Female Reproductive History Menstrual Age of Menarche: 13 Questionnaire Thrive Questionnaire Date Thrive assessed: 10/12/22 MARÍA-7 AMB Questionnaire MARÍA-7 Date MARÍA - 7 assessed: 10/12/22 Source: Developed by Drs. Isiah Garcia, Maria Bullard, Jude Todd and colleagues, with an educational amara from [employer]. Review of Systems Const All systems reviewed & are unremarkable except as noted in HPI and below Eyes Reports no additional complaints, Denies change in vision and Denies other visual disturbances Card Denies chest pain at rest, Denies chest pain with activity, Denies edema, Denies irregular heart rhythm, Denies claudication, Denies dyspnea, Denies dyspnea on exertion, Denies orthopnea, Denies paroxysmal nocturnal dyspnea and Denies slow heart rate Resp Denies cough, Denies dyspnea and Denies dyspnea on exertion GI Denies abdominal pain, Denies change in bowel habits, Denies excessive flatus, Denies nausea and Denies vomiting Denies urinary incontinence, Denies urinary hesitancy and Denies urinary urgency Musc Denies abnormal gait, Denies atrophy, Denies deformity and Denies limited range of motion Skin/Breast Denies bleeding lesions, Denies changing lesions and Denies rash Neuro Denies abnormal gait and Denies lack of coordination Physical exam (Primary Care) Vital Signs: Last Vital Signs BP 132/70 06/28/23 16:05 BMI result Body Mass Index 34.0 Tobacco/Smoking Status: Tobacco use Status Tobacco use date assessed 10/12/22 06/28/23 16:06 Patient Tobacco Use Status Current everyday Tobacco 06/28/23 16:06 Tobacco use type Cigarette 06/28/23 16:06 e-Cigarette/Vaping Use Never Used 06/28/23 16:06 Thrive Assessment: Date of Thrive Assessment Date Thrive assessed 10/12/22 06/28/23 16:06 Eyes General: appearance normal, both eyes and all related structures Eyelids: Yes eyelids normal Conjunctivae: conjunctivae normal Neck Neck: Yes normal visual inspection and Yes supple Resp Effort & Inspection: normal respiratory effort Auscultation: clear to auscultation bilaterally Cardio Jugular venous distension: no JVD Rate: regular rate Rhythm: regular rhythm Heart sounds: S1 normal heart sound present and S2 normal heart sound present Skin Rashes: rashes noted (Maculopapular pruritic rash in abdomen) Extrem General: Yes full ROM Office Procedures Flu Questionnaire Does the patient have a severe egg allergy?: No Results AMB Hemoglobin A1c AMB Hemoglobin A1c 7.1 % Last Edit by CHRISTIANO Marley on 06/28/23 16:1 2 Immunizations flu vacc [id number] 6mos up(PF) 60 mcg(15 mcgx4)/0.5 mL IM syringe Performing Provider: Amanda Raphael MD [facility] Documented (not given) by: CHRISTIANO Marley on 06/28/23 16:42 Reason Not Given: Patient Refused Results Reviewed Results Reviewed: Laboratory Last Values Hgb A1c (Clinic) 7.1 % (4.0-6.0) H 06/28/23 16:07 Assessment and Plan Assessment & Plan (1) Diabetes mellitus: Code(s): E11.9 - Type 2 diabetes mellitus without complications Qualifiers: Diabetes mellitus type: type 2 Diabetes mellitus jail insulin use: without termite treater use Diabetes mellitus complication status: without com plication Qualified Code(s): E11.9 - Type 2 diabetes mellitus without complications Plan: Continue Actos and Ozempic. A1c goal is equal or less than 7%. (2) Dyslipidemia: Code(s): E78.5 - Hyperlipidemia, unspecified Plan: Continue statins. LDL goal is less than 70. (3) Mild asthma: Code(s): J45.909 - Unspecified asthma, uncomplicated Plan: Continue longstanding inhaler. Use rescue inhaler as needed. (4) Rash: Code(s): R21 - Rash and other nonspecific skin eruption Plan: Start hydrocortisone cream. Orders: Orders AMB Hemoglobin A1c Today E11.9 - Type 2 diabetes mellitus without complications Lipid Panel 4 Months E78.5 - Hyperlipidemia, unspecified Microalbumin, Random (w Creat) 4 Months E11.9 - Type 2 diabetes mellitus without complications Influenza [id number] Immunization Today Z23 - Encounter for immunization Comprehensive [place]. Panel Fast 4 Months E11.9 - Type 2 diabetes mellitus without complications Medications: New semaglutide (Ozempic) 2 mg (0.75 mL) subcut QWEEK 30 days 3.75 mL 6RF E11.9 - Type 2 diabetes mellitus without complications betamethasone, augmented 0.05 % 1 appl topical DAILY 30 days PRN 50 grams 0RF skin irritation Discontinued semaglutide (Ozempic) Discontinued Reason: Patient Completed Course 1 mg (0.75 mL) subcut QWEEK 30 days 3.75 mL 3RF E11.9 - Type 2 diabetes mellitus without complications tramadol Discontinued Reason: Patient Completed Course 50 mg PO BID 10 days PRN 20 tabs 0RF pain Coding Level of Care Code Est Pt Level 4 (37827) Diagnoses Type 2 diabetes mellitus without complication, without long-term current use of insulin E11.9 Diabetes mellitus type: type 2 Diabetes mellitus termite treater insulin use: without termite treater use Diabetes mellitus complication status: without complication Dyslipidemia E78.5 Mild asthma J45.909 Rash R21 Time Spent (min) 23
== END 2023-06-28 16:29 | disposition home or self-care (01) ==
PROVIDERS: PCP Internal Medicine; Visit Provider Internal Medicine
DX: E11.69 Type 2 diabetes mellitus with other specified complication (principal); E78.5 Hyperlipidemia, unspecified; J45.909 Unspecified asthma, uncomplicated; F17.210 Nicotine dependence, cigarettes, uncomplicated; R21 Rash and other nonspecific skin eruption
CPT/HCPCS: 83036; 99214

== ENCOUNTER 2023-06-29 14:48 | Outpatient (AMB) | payer OTHER, SELFPAY ==
--- NOTE | 2023-06-29 14:51 | AM.OFFVISNUR ---
Intake Intake Visit Reasons: Flu Vaccine Allergies nicotine Allergy (Intermediate, Verified 06/28/23 16:20) Rash metformin Adverse Reaction (Intermediate, Verified 06/28/23 16:20) stomach upset, diarrhea Office Procedures Flu Questionnaire Does the patient have a severe egg allergy?: No Does the patient have severe life threatening allergies?: No Does the patient have a fever or illness today?: No Has the patient ever had Guillain-[place] Syndrome?: No Has the patient ever had any past reaction to a flu shot?: No Immunizations flu vacc [id number] 6mos up(PF) 60 mcg(15 mcgx4)/0.5 mL IM syringe Performing Provider: Amanda Raphael MD [facility] Administered by: Jayne Dumont RN on 06/29/23 14:57 Dose Route Admin Location Dispensed Lot Number Expiration Date NDC Timber Repairer 0.5 mL IM Left Deltoid 0.5 mL [id number] 01/28/24 [id number] [employer] VIS Given Date VIS Provided VIS Publication Date 06/29/23 Single Vaccine 21 Eligibility Eligibility Date Funding Source Not VF Eligible 06/29/23 Private Coding Assessment & Plan Assessment & Plan Orders: Orders Influenza [id number] Immunization Today Z23 - Encounter for immunization
== END 2023-06-29 15:00 | disposition home or self-care (01) ==
PROVIDERS: PCP Internal Medicine; Visit Provider Internal Medicine
DX: Z23 Encounter for immunization (principal)
CPT/HCPCS: 90471; 90686

== ENCOUNTER 2023-07-03 14:30 | Outpatient (AMB) | payer OTHER, SELFPAY ==
--- NOTE | 2023-07-03 14:34 | MHC.OFFVIS ---
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 No complaints. Last Pap/HPV was negative in 06/21 Last Mammogram was BI-RADS 2 in 10/20 [facility] Medical History MARÍA (generalized anxiety disorder) Right knee pain Microalbuminuria Heel spur Right elbow pain Hand numbness Mild asthma Dyslipidemia Diabetes mellitus Surgical History History of repair of rotator cuff Family History Father Diabetes Hypertension Kidney disease Mother Diabetes Fibromyalgia Brother No problems noted. Paternal Grandmother Stroke Social History Housing: Apartment Alcohol intake: former Patient Tobacco Use Status: Current everyday Tobacco user Tobacco use type: Cigarette Cigarettes Per Day: 8 e-Cigarette/Vaping Use: Never Used Second Hand Smoke Exposure: No service: No Current occupational status: employed Current occupational exposures/hazards: No Cognitive needs: No Hearing needs: No Vision needs: Yes (Glasses) Female Reproductive History Menstrual Age of Menarche: 13 control method: progestin IUCD Total pregnancies: 0 Date of last pap smear: 06/21/22 (negative) History of abnormal pap smear: Yes (2006 [facility]) Review of Systems Const All systems reviewed & are unremarkable except as noted in HPI and below Card Reports as per HPI Resp Reports as per HPI GI Reports as per HPI and Reports no additional complaints Reports as per HPI Physical Exam Const General: cooperative, healthy appearing and comfortable Chest Chest palpation & inspection: normal inspection of the chest and normal palpation of entire chest wall Breast/axilla inspection: normal inspection of the breasts and normal inspection of the axillae Breast/axilla palpation: normal palpation of the breasts, normal palpation of the axillae and no axillary lymphadenopathy Resp Effort & Inspection: normal respiratory effort Auscultation: clear to auscultation bilaterally Percussion: percussion normal Cardio Palpation: normal PMI Rate: regular rate Rhythm: regular rhythm Heart sounds: no murmurs and no rubs Peripheral pulses: Peripheral pulses 2+ throughout GI Inspection: Yes normal to inspection Palpation (GI): Soft to palpation, nontender, no guarding, not rigid and No hepatosplenomegaly present Percussion: Yes normal to percussion Auscultation: normal bowel sounds Rectal Exam - Female: deferred General: Yes bladder normal to palpation External Female Exam: No lesion Speculum Exam - Vagina: normal appearance of the vagina, normal palpation, normal vaginal discharge and not erythematous Speculum Exam - Cervix: normal appearance of the cervix and normal palpation Bimanual exam- vagina & uterus: normal bimanual exam, normal palpation, uterine size normal, bladder normal to palpation, consistency normal and normal palpation Bimanual Exam- Adnexa, other: normal adnexae, no masses and no tenderness Assessment & Plan Assessment & Plan (1) Well woman exam: Code(s): Z01.419 - Encounter for gynecological examination (general) (routine) without abnormal findings Plan: Cotesting not indicated this year. Instructions given the patient to schedule next screen Mammogram in 10/21. Counseled the patient about the recommended dietary allowance of 1000 mg of Calcium & 600 IU of vitamin D. The patient was instructed to perform monthly self-breast exams and to schedule an annual exam in a year; All questions answered and the patient verbalized understanding. Instructed the patient to schedule annual exam in a year Medications: Discontinued lidocaine 5% leave on most painful area for up to 12 hrs Discontinued Reason: Patient no longer taking 1 patch topical DAILY 15 ea 0RF nicotine Discontinued Reason: Patient no longer taking 1 patch transdermal DAILY 28 days 28 ea 0RF Coding Level of Care Code Est Pt Prev Care 40-64y(78549) Diagnoses Well woman exam Z01.419
[2023-07-03 14:36] VITALS: BP 116/74; BMI 34.0
== END 2023-07-03 15:03 | disposition home or self-care (01) ==
PROVIDERS: Visit Provider Obstetrics & Gynecology
DX: Z01.419 Encounter for gynecological examination (general) (routine) without abnormal findings (principal)
CPT/HCPCS: 99396

== ENCOUNTER → 2023-07-03 14:30 | Outpatient (BNVA) | payer OTHER, SELFPAY | PROVIDERS: Visit Provider Obstetrics & Gynecology ==

== ENCOUNTER 2023-08-30 12:38 | Outpatient (AMB) | payer OTHER, SELFPAY ==
--- NOTE | 2023-08-30 12:50 | A.OFFVIS_ITS ---
Intake Vital Signs 08/30/23 12:51 Height 5 ft 7 in Weight 217 lb BMI 34.0 Intake Visit Reasons: ov- Trigger finger, left middle finger Intake Note: Sienna 43 yr old female presents for her follow up visit for her left middle trigger finger s/p injection on 06/12/23 with Severiano Hoover. States injection help for a short period of time and would like to discuss surgical intervention. Last A1C was a 7.1 on 06/28/23. Allergies nicotine Allergy (Intermediate, Verified 08/30/23 12:58) Rash metformin Adverse Reaction (Intermediate, Verified 08/30/23 12:58) stomach upset, diarrhea HPI ov- Trigger finger, left middle finger HPI Details Sienna is a 43 year old right hand dominant Diabetic woman who returns to discuss her left middle trigger finger, S/P injection on 06/12/23. She says the injection was helpful only for a few weeks and she would like to discuss surgery. She has been hesitant in making a fist with her hands to avoid her middle fingers locking on her. [facility] Medical History MARÍA (generalized anxiety disorder) Right knee pain Microalbuminuria Heel spur Right elbow pain Hand numbness Mild asthma Dyslipidemia Diabetes mellitus Surgical History History of repair of rotator cuff Family History Father Diabetes Hypertension Kidney disease Mother Diabetes Fibromyalgia Brother No problems noted. Paternal Grandmother Stroke Social History Housing: Apartment Alcohol intake: former Patient Tobacco Use Status: Current everyday Tobacco user Tobacco use type: Cigarette Cigarettes Per Day: 8 e-Cigarette/Vaping Use: Never Used Second Hand Smoke Exposure: No service: No Current occupational status: employed Current occupational exposures/hazards: No Cognitive needs: No Hearing needs: No Vision needs: Yes (Glasses) Female Reproductive History Menstrual Age of Menarche: 13 Review of Systems Const All systems reviewed & are unremarkable except as noted in HPI and below Physical Exam Vital Signs: BMI result Body Mass Index 34.0 Const General: no acute distress and alert Orientation/consciousness: patient oriented x3 Neuro General: patient oriented x3 Extrem Other: Evaluation of Bilateral Upper Extremity: The patient is alert, oriented, and in no acute distress Neuro: Median, Ulnar, Radial nerves motor and sensory intact and sensation is normal to the tips of all digits Vascular: Cap refill brisk ROM: She can make a fist and extend her digits. She does have visible and palpable locking and catching of the left middle finger, She also has tenderness over the A1 grace of the middle finger She also is developing a slight flexion contracture at the PIP joint which is reducible to full extension when she places her hand flat on the table. This causes discomfort in line with the flexor tendon. Psych Appearance: grossly normal Affect: normal affect Attitude: cooperative Assessment & Plan Assessment & Plan (1) Trigger finger, right middle finger: Code(s): M65.331 - Trigger finger, right middle finger (2) Trigger finger, left middle finger: Code(s): M65.332 - Trigger finger, left middle finger Plan Assessment and plan: 1. Left middle finger trigger finger, S/P injection Date of injection: 06/12/23 With a slight, and reducible PIP flexion contracture I educated her about this condition I discussed operative and non-operative treatment options The patient would like to proceed with surgery The risks and benefits of operative treatment were discussed with the patient and the patient wishes to proceed with surgery. These risks include, but are not limited to risk of damage to blood vessels, nerves, tendons, infection, recurrence, incomplete relief of preoperative symptoms, persistent pain, possible need for further surgery and the risks associated with regional blocks and anesthesia. The plan is to take the patient to the operating room sometime in the next few weeks for the following procedures: 1. Left middle trigger finger release, under local All of the preoperative paperwork including the consent was reviewed today. All the patient's questions were answered. The patient understands that they will be contacted by our capital campaign fundraiser soon to schedule this procedure She denies blood thinners, asthma, heart, lung, kidney issues She is a Diabetic, her most recent HgA1c was 7.1% on 06/28/23 2. Right middle finger trigger finger Not discussed today Scribed for Irma Kevin MD by Pablito Mojica, medical doctor md, on 08/30/23 at 1:25 PM, EST. Coding Level of Care Code Global (72861) Diagnoses Trigger finger, right middle finger M65.331 Trigger finger, left middle finger M65.332
[2023-08-30 12:51] VITALS: BMI 34.0
== END 2023-08-30 13:31 | disposition home or self-care (01) ==
PROVIDERS: PCP Internal Medicine; Visit Provider Orthopaedic Surgery
DX: M65.331 Trigger finger, right middle finger (principal); M65.332 Trigger finger, left middle finger
CPT/HCPCS: 99214

== ENCOUNTER → 2023-08-30 12:38 | Outpatient (BNVA) | payer OTHER, SELFPAY | PROVIDERS: PCP Internal Medicine; Visit Provider Orthopaedic Surgery | DX: M65.331 Trigger finger, right middle finger (principal); M65.332 Trigger finger, left middle finger | CPT/HCPCS: 99212 ==

== ENCOUNTER 2023-09-14 15:46 | Outpatient (REF) | payer OTHER, SELFPAY ==
--- NOTE | ~2023-09-14 | MM_ITS ---
EXAMINATION: MM SCREENING DIGITAL BREAST TOMOSYNTHESIS, BILATERAL CLINICAL INFORMATION: Screening. Asymptomatic. COMPARISON: Mammography: This study is compared with prior exams dating back to 2021. TECHNIQUE: Digital breast tomosynthesis is performed in both the craniocaudal and mediolateral oblique views along with computer-aided detection (CAD). Synthesized 2D images are generated from the tomosynthesis. FINDINGS: The breasts are heterogeneously dense, which may obscure small masses (ACR BI-RADS breast composition Category c). There are no significant masses, abnormal calcifications, or other abnormalities. MM/MM tomosynthesis screening BI IMPRESSION: No mammographic evidence of malignancy. ASSESSMENT: BI-RADS BI-RADS 1 - Negative RECOMMENDATION: Routine annual mammography screening. 1 year F/U This examination should not preclude the clinical evaluation of a suspicious palpable abnormality. This patient's information was entered into a reminder system with a target due date for their next mammogram.
== END 2023-09-14 15:47 | disposition home or self-care (01) ==
LOC: HO.MAMMO 15:46
PROVIDERS: PCP Internal Medicine; Visit Provider Internal Medicine
DX: Z12.31 Encounter for screening mammogram for malignant neoplasm of breast (principal)
CPT/HCPCS: 77063; 77067

== ENCOUNTER → 2023-09-14 16:00 | Outpatient (BNV) | payer OTHER, SELFPAY | PROVIDERS: PCP Internal Medicine; Visit Provider Radiology Diagnostic Radiology | DX: Z12.31 Encounter for screening mammogram for malignant neoplasm of breast (principal) | CPT/HCPCS: 77063; 77067 ==

== ENCOUNTER 2023-10-30 07:45 | Outpatient (REF) | payer OTHER, SELFPAY ==
[2023-10-30 08:33] LABS: Alanine Aminotransferase 33 U/L (0-31); Albumin Level 4.2 g/dL (3.5-5.0); Alkaline Phosphatase 100 U/L (39-117); Anion Gap 12 (12-20); Aspartate Amino Transferase 15 U/L (5-31); Bilirubin Total 0.5 mg/dL (0.0-1.0); Blood Urea Nitrogen 16 mg/dL (9-16); Calcium 9.7 mg/dL (8.4-10.2); Carbon Dioxide 26 mmol/L (22-29); Chloride 110 mmol/L (96-108); Cholesterol 109 mg/dL (<200); Estimated Glomerular Filt Rate > 60; Glucose Fasting 136 mg/dL (60-99); HDL Cholesterol 30 mg/dL (>40); LDL Cholesterol Calculated 61 mg/dL (<100); Sodium 144 mmol/L (135-145); Total Protein 7.3 g/dL (6.5-8.0); Triglycerides 94 mg/dL (<150)
[2023-10-30 09:19] LABS: Creatinine Urine 208.58 mg/dL; Microalbum/Creatinine Ratio Ur 8.1 ug/mg cr (<30)
== END 2023-10-30 07:46 | disposition home or self-care (01) ==
LOC: HO.LAB 07:45
PROVIDERS: PCP Internal Medicine; Visit Provider Internal Medicine
DX: E78.5 Hyperlipidemia, unspecified (principal); E11.9 Type 2 diabetes mellitus without complications
CPT/HCPCS: 36415; 80053; 80061; 82043; 82570

== ENCOUNTER 2023-11-06 14:59 | Outpatient (AMB) | payer OTHER, SELFPAY ==
--- NOTE | 2023-11-06 14:59 | MHC.PC.OV ---
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 Accompanied by: Self / Same As Patient Allergies nicotine Allergy (Intermediate, Verified 11/06/23 15:12) Rash metformin Adverse Reaction (Intermediate, Verified 11/06/23 15:12) stomach upset, diarrhea Medication List - Last Reconciled 11/06/23 by Amanda Raphael MD acetaminophen (Tylenol Extra Strength) 500 mg PO Q6H PRN 30 days albuterol sulfate 2.5 mg (3 mL) inhalation Q6H PRN 30 days atorvastatin 40 mg PO BEDTIME 90 days betamethasone, augmented 0.05 % 1 appl topical DAILY PRN 30 days blood sugar diagnostic (FreeStyle Lite Strips) 1 strip miscellaneous BID 90 days blood-glucose meter (FreeStyle Lite Meter kit) As directed cyclobenzaprine 10 mg PO TID PRN fluticasone propionate 44 mcg/actuation (Flovent HFA) 2 puffs inhalation BID 30 days ibuprofen 800 mg PO Q8H PRN lancets As directed levonorgestrel (Mirena) intrauterine DAILY nicotine 1 patch transdermal DAILY 28 days pioglitazone 45 mg PO DAILY 90 days semaglutide (Ozempic) 2 mg (0.75 mL) subcut QWEEK 30 days Ventolin HFA 90 mcg/actuation (albuterol sulfate) 2 puffs inhalation Q6H PRN 30 days NS Tobacco use date assessed: 11/06/23 Dental Screening Dental Screen Date: 11/06/23 Did you have a dental visit in the last 12 months?: Yes Did you have a dental problem in the last 6 months where you did not have access to dental care?: No Was dental information given to patient?: Patient has dentist HPI HPI Comments History of Present Illness Details This is a 43-year-old female with moderate major depression and diabetes mellitus type 2 that comes for her physical exam. She recently lost her mother and would like some counseling. I will start her on escitalopram at bedtime. A1c within goal. Last mammogram was 2023 and was normal. Last Pap smear was 2021 and was normal. [facility] Medical History (Updated 11/06/23 @ 15:27 by Amanda Raphael MD) MARÍA (generalized anxiety disorder) Right knee pain Microalbuminuria Heel spur Right elbow pain Hand numbness Mild asthma Dyslipidemia Diabetes mellitus Surgical History History of repair of rotator cuff Family History (Updated 11/06/23 @ 15:16 by Amanda Raphael MD) Father Diabetes Hypertension Kidney disease Mother Diabetes Fibromyalgia Brother No problems noted. Paternal Grandmother Stroke Social History Housing: Apartment Alcohol intake: former Patient Tobacco Use Status: Current everyday Tobacco user Tobacco use type: Cigarette Cigarettes Per Day: 8 e-Cigarette/Vaping Use: Never Used Second Hand Smoke Exposure: No service: No Current occupational status: employed Current occupational exposures/hazards: No Cognitive needs: No Hearing needs: No Vision needs: Yes (Glasses) Female Reproductive History Menstrual Age of Menarche: 13 Questionnaire PHQ-9 Over the last 2 weeks, how often have you been bothered by any of the following problems? 1. Little interest or pleasure in doing things: nearly every day 2. Feeling down, depressed, or hopeless: nearly every day 3. Trouble falling or staying asleep, or sleeping too much: several days 4. Feeling tired or having little energy: several days 5. Poor appetite or overeating: nearly every day 6. Feeling bad about yourself - or that you are a failure or have let yourself or your family down: not at all 7. Trouble concentrating on things, such as reading the newspaper or watching television: not at all 8. Moving or speaking so slowly that other people could have noticed. Or the opposite - being so fidgety or restless that you have been moving around a lot more than usual: nearly every day 9. Thoughts that you would be better off or of hurting yourself in some way: not at all Total score: 14 Depression Screening Interpretation: Positive (no suicidal thoughts) Depression Screening Follow-up: Existing condition Depression Screening Done: Yes 17689 - PHQ-9 Billing: Yes Source: Developed by Drs. Isiah Garcia, Maria Bullard, Jude Todd and colleagues, with an educational amara from [employer]. Thrive Questionnaire Date Thrive assessed: 11/06/23 I am a: Patient What is your living situation today?: I have a steady place to live Within the past 12 months, did the food you bought not last and you didn't have the money to get more?: Never true Within the past 12 months, did you worry whether your food would run out before you got money to buy more?: Never true Do you have trouble paying for medicines?: No Do you have trouble getting transportation to medical appointments?: No Do you have trouble paying your heating and electricity bill?: No Do you have trouble taking care of your child, family member or friend?: No Do you have trouble with day-to-day activities such as bathing, preparing meals, shopping, managing finances, etc.?: No Are you currently unemployed and looking for a job?: No Are you interested in more education?: No Please select the resources that you would like help with: None Currently or been in a relationship where the following occur: no concerns reported THRIVE Score: 0 AUDIT C Alcohol Use Questionnaire (AUDIT-C) 1. How often do you have a drink containing alcohol?: Never Total Score: 0 MARÍA-7 AMB Questionnaire MARÍA-7 Date MARÍA - 7 assessed: 11/06/23 Feeling nervous, anxious, or on edge: 3 = Nearly every day Not being able to stop or control worryin = More than half the days Worrying too much about different things: 3 = Nearly every day Trouble relaxin = Several days Being so restless that it is hard to sit still: 0 = Not at all Becoming easily annoyed or irritable: 0 = Not at all Feeling afraid as if something awful might happen: 0 = Not at all Total MARÍA-7 score (0-4 normal; 5-9 mild; 10-14 moderate; 15-21 severe): 9 Source: Developed by Drs. Isiah Garcia, Maria Bullard, Jude Todd and colleagues, with an educational amara from [employer]. MARÍA-7 Assessment Billing MARÍA-7 Assessment Tool: MARÍA-7 Assessment 24002 Review of Systems Const All systems reviewed & are unremarkable except as noted in HPI and below Eyes Reports no additional complaints, Denies change in vision and Denies other visual disturbances Card Denies chest pain at rest, Denies chest pain with activity, Denies edema, Denies irregular heart rhythm, Denies claudication, Denies dyspnea, Denies dyspnea on exertion, Denies orthopnea, Denies paroxysmal nocturnal dyspnea and Denies slow heart rate Resp Denies cough, Denies dyspnea and Denies dyspnea on exertion GI Denies abdominal pain, Denies change in bowel habits, Denies excessive flatus, Denies nausea and Denies vomiting Denies urinary incontinence, Denies urinary hesitancy and Denies urinary urgency Physical exam (Primary Care) Vital Signs: Last Vital Signs BP 118/80 11/06/23 15:02 BMI result Body Mass Index 33.7 Tobacco/Smoking Status: Tobacco use Status Tobacco use date assessed 11/06/23 11/06/23 15:07 Patient Tobacco Use Status Current everyday Tobacco 11/06/23 15:01 Tobacco use type Cigarette 11/06/23 15:01 e-Cigarette/Vaping Use Never Used 11/06/23 15:01 PHQ-9: PHQ-9 Score PHQ-9: Total score 14 11/06/23 15:17 Depression Screening Interpretation: Positive (no suicidal thoughts) Depression Screening Follow-up: Existing condition Thrive Assessment: Date of Thrive Assessment Date Thrive assessed 11/06/23 11/06/23 15:07 Currently or been in a relationship where the following occur: no concerns reported Const Orientation/consciousness: patient oriented x3 HENMT Head: Yes normal to inspection, Yes normocephalic and Yes atraumatic Ears: external ears normal Eyes General: appearance normal, both eyes and all related structures Eyelids: Yes eyelids normal Conjunctivae: conjunctivae normal Neck Neck: Yes normal visual inspection and Yes supple Resp Effort & Inspection: normal respiratory effort Auscultation: clear to auscultation bilaterally Cardio Jugular venous distension: no JVD Rate: regular rate Rhythm: regular rhythm Heart sounds: S1 normal heart sound present and S2 normal heart sound present GI Inspection: Yes normal to inspection Palpation (GI): Soft to palpation and nontender Auscultation: normal bowel sounds Skin General skin exam: no rashes or lesions noted Neuro General: patient oriented x3 and no focal motor deficits Extrem General: Yes full ROM Psych Appearance: grossly normal Results AMB Hemoglobin A1c AMB Hemoglobin A1c 6.4 % Last Edit by CHRISTIANO Marley on 11/06/23 15:09 Results Reviewed Results Reviewed: Laboratory Last Values Hgb A1c (Clinic) 6.4 % (4.0-6.0) H 11/06/23 15:08 Assessment and Plan Assessment & Plan (1) Physical exam: Code(s): Z00.00 - Encounter for general adult medical examination without abnormal findings Plan: Repeat in a year. (2) Moderate major depression: Code(s): F32.1 - Major depressive disorder, single episode, moderate Plan: Start escitalopram. (3) Diabetes mellitus: Code(s): E11.9 - Type 2 diabetes mellitus without complications Qualifiers: Diabetes mellitus type: type 2 Diabetes mellitus extermination inspector insulin use: without prison use Diabetes mellitus complication status: without complication Qualified Code(s): E11.9 - Type 2 diabetes mellitus without complications Plan: Continue Actos and Ozempic. A1c goal is equal or less than 7%. Orders: Orders AMB Hemoglobin A1c Today E11.9 - Type 2 diabetes mellitus without complications Microalbumin, Random (w Creat) 4 Months E11.9 - Type 2 diabetes mellitus without complications Lipid Panel 4 Months E78.5 - Hyperlipidemia, unspecified Vitamin D 25-OH Total 4 Months E55.9 - Vitamin D deficiency, unspecified Comprehensive [place]. Panel Fast 4 Months E11.9 - Type 2 diabetes mellitus without complications Medications: New escitalopram oxalate 5 mg PO BEDTIME 90 tabs 1RF 90 days F32.1 - Major depressive disorder, single episode, moderate Coding Level of Care Code Est Pt Prev Care 40-64y(41179) Diagnoses Physical exam Z00.00 Moderate major depression F32.1 Type 2 diabetes mellitus without complication, without long-term current use of insulin E11.9 Diabetes mellitus type: type 2 Diabetes mellitus prison insulin use: without extermination inspector use Diabetes mellitus complication status: without complication Additional Codes MARÍA-7 Assessment Billing - MARÍA-7 Assessment Tool: MARÍA-7 Assessment 99863 ([id number]) Time Spent (min) 33
[2023-11-06 15:02] VITALS: BP 118/80; BMI 33.7
== END 2023-11-06 15:22 | disposition home or self-care (01) ==
PROVIDERS: PCP Internal Medicine; Visit Provider Internal Medicine
DX: Z00.00 Encounter for general adult medical examination without abnormal findings (principal); F32.1 Major depressive disorder, single episode, moderate; E11.9 Type 2 diabetes mellitus without complications
CPT/HCPCS: 83036; 99396

== ENCOUNTER 2023-11-09 10:41 | Day surgery (SDC) | payer OTHER, SELFPAY ==
--- NOTE | 2023-11-09 11:59 | MHC.SHP ---
Pre-Procedural Eval Section A - 24 Hr Update-Section A only Date of Service: 11/09/23 The patient is an INPATIENT: No Changes since office visit: No Cold of Flu in the past 2 weeks, No New Medical Problems, No Changes in Medication and No Patient answered all questions The patient has been examined within 24 hours of the surgical procedure. The History & Physical has been completed within 30 days and I have reviewed it.: Yes Section B - Complete if H&P > 30 days Chief Complaint: Trigger finger, left middle finger Allergies: Allergies Allergy/AdvReac Type Severity Reaction Status Date / Time nicotine Allergy Intermediate Rash Verified 11/06/23 15:12 metformin AdvReac Intermediate stomach Verified 11/06/23 15:12 upset, diarrhea Exam Exam Comment: Left middle finger Finger trigger finger Plan Diagnosis/Plan: Unchanged I have reviewed the history and physical and performed a pertinent physical examination on my patient. No changes have occurred unless specified. Time Spent With Patient Time: Total time managing care of this patient today ____ minutes.
--- NOTE | 2023-11-09 12:00 | P.OP_ITS ---
Operative Note Operative Note Date of Service: 11/09/23 Narrative: Operative Note Preop diagnosis: 1. Left middle finger Trigger finger Postop diagnosis: 1. Left middle finger Trigger finger Procedure: 1. Left middle finger A1 grace release Surgeon: Irma Kevin MD Anesthesia: local block using 1% lidocaine with epinephrine Findings: No locking or catching after A1 grace release EBL: Less than 5 mL Tourniquet time: None Specimens: None Complications: None Disposition: Brought to recovery room in stable condition Plan: Follow-up for 10-14 days for wound check and suture removal Indications: The patient is 43 years old, with a left middle finger trigger finger that has been unresponsive to nonoperative management. The risks and benefits of operative treatment including but not limited to risk of damage to blood vessels, nerves, tendons, infection, persistent pain, persistent symptoms, recurrence or possible need for additional surgery were discussed with the patient and the patient wishes to proceed with surgery. Procedure: Once consent was obtained a local block was performed in the preop area using a combination of 1% lidocaine with epinephrine. The patient was then brought back to the operating suite and placed on the operative table in supine position. The left upper extremity was prepped and draped in a standard surgical fashion. Once assured that we had a good block, a 1.5 cm oblique incision was made cente red over the A1 grace of the left middle finger . The incision was made through the skin to the subcutaneous tissues using a #15 blade. Careful dissection was made down to the level of the A1 grace using tenotomy scissors, with care being taken to protect the nearby neurovascular structures. A longitudinal incision was made in the A1 grace 1st using a #15 blade, then using tenotomy scissors under direct visualization. The A1 grace was noted to be thickened. Following our A1 grace release, we no longer saw any locking or catching of the digit with flexion and extension. Once satisfied with our A1 grace release the wound was copiously irrigated with normal saline and hemostasis was obtained with a brief period of local pressure. The skin edges were reapproximated with some 5.0 nylon suture material and a sterile dressing was applied. The patient appears to have tolerated the procedure well and with no complications. All digits were well vascularized at the conclusion of the case.
[2023-11-09 12:01] VITALS: BMI 33.7
[2023-11-09 13:41] VITALS: BP 142/91; PULSE 84; RESP 18; O2SAT 95
== END 2023-11-09 13:00 | disposition home or self-care (01) ==
PROVIDERS: PCP Internal Medicine; Visit Provider Orthopaedic Surgery
PROC: (CPT 26055; principal; 2023-11-09 12:30)
DX: M65.332 Trigger finger, left middle finger (principal); R20.0 Anesthesia of skin; E11.9 Type 2 diabetes mellitus without complications; F41.1 Generalized anxiety disorder; E78.5 Hyperlipidemia, unspecified; J45.909 Unspecified asthma, uncomplicated; Z88.8 Allergy status to other drugs, medicaments and biological substances; Z98.890 Other specified postprocedural states; F17.210 Nicotine dependence, cigarettes, uncomplicated
CPT/HCPCS: 26055; J0171

== ENCOUNTER → 2023-11-09 10:41 | Outpatient (BNV) | payer OTHER, SELFPAY | PROVIDERS: PCP Internal Medicine; Visit Provider Orthopaedic Surgery | DX: M65.332 Trigger finger, left middle finger (principal) | CPT/HCPCS: 26055 ==

== ENCOUNTER 2023-11-22 13:35 | Outpatient (AMB) | payer OTHER, SELFPAY ==
[2023-11-22 13:37] VITALS: BMI 33.6
--- NOTE | 2023-11-22 13:37 | MHC.OFFVIS ---
Vital Signs 11/22/23 13:37 Height 5 ft 7.5 in Weight 218 lb BMI 33.6 Intake Visit Reasons: PO-Lt MF Trigger Release 11/09/23 Intake Note: Sienna 43 yr old female presents today for her p/o visit for her left middle finger release from 11/09/23. States her triggering has stopped but she had a little puss drainage. Sututres removed and steri strips applied. Allergies nicotine Allergy (Intermediate, Verified 11/09/23 12:02) Rash metformin Adverse Reaction (Intermediate, Verified 11/09/23 12:02) stomach upset, diarrhea HPI HPI PO-Lt MF Trigger Release 11/09/23: Details: Sienna is a 43 year old right hand dominant Diabetic woman who returns S/P left middle finger trigger release, DOS: 11/09/23. She says she is doing well and denies any locking or catching. She says she has a little bit of pain at the incision site. She is happy with the results of her surgery. [facility] Medical History MARÍA (generalized anxiety disorder) Right knee pain Microalbuminuria Heel spur Right elbow pain Hand numbness Mild asthma Dyslipidemia Diabetes mellitus Surgical History History of repair of rotator cuff Family History (Updated 11/06/23 @ 15:16 by Amanda Raphael MD) Father Diabetes Hypertension Kidney disease Mother Diabetes Fibromyalgia Brother No problems noted. Paternal Grandmother Stroke Social History Housing: Apartment Alcohol intake: former Patient Tobacco Use Status: Current everyday Tobacco user Tobacco use type: Cigarette Cigarettes Per Day: 8 e-Cigarette/Vaping Use: Never Used Second Hand Smoke Exposure: No service: No Current occupational status: employed Current occupational exposures/hazards: No Cognitive needs: No Hearing needs: No Vision needs: Yes (Glasses) Female Reproductive History Menstrual Age of Menarche: 13 Review of Systems Const All systems reviewed & are unremarkable except as noted in HPI and below Physical Exam Vital Signs: BMI result Body Mass Index 33.6 Const General: no acute distress and alert Orientation/consciousness: patient oriented x3 Neuro General: patient oriented x3 Extrem Other: The patient was alert oriented and in no acute distress The incision is healing well, with mild erythema & there was some slight purulent drainage from one of her suture sites. Sutures removed today in clinic She can make a fist and extend all her digits No locking or catching Sensation is intact Cap refill is brisk Psych Appearance: grossly normal Affect: normal affect Attitude: cooperative Assessment & Plan Assessment & Plan (1) Trigger finger, right middle finger: Code(s): M65.331 - Trigger finger, right middle finger Category: Medical (2) Postoperative abscess involving suture: Code(s): T81.41XA - Infection following a procedure, superficial incisional surgical site, initial encounter Category: Medical (3) Trigger finger, left middle finger: Code(s): M65.332 - Trigger finger, left middle finger Category: Medical Plan Assessment and plan: 1. Left middle finger trigger finger, S/P release DOS: 11/09/23 The patient appears to be doing well post-operatively I educated her about the post-operative course I explained the signs and symptoms of infection, if the patient develops any new or worsening erythema, drainage, pain, or warmth they should contact the clinic or attend the ED. She appears to have a stitch abscess. She had some slight purulent discharge from her incision when her sutures were removed today. I ordered a 7-day course of Augmentin She will clean with with a solution of 1:1 hydrogen peroxide & water daily. She will also wash her hands with soap & water I discussed activity modifications, she is to lift nothing heavier than a cellphone for the next two weeks She will perform gentle ROM exercises at home She will follow up in 1 week with a PA for a wound check 2. Right middle finger trigger finger Not discussed today Scribed for Irma Kevin MD by Pablito Mojica, expert medical writer, on 11/22/23 at 1:55 PM, EST. Medications: New amoxicillin-pot clavulanate 875-125 mg 1 tab PO Q12H 14 tabs 0RF Scribe Plan - Not visible on output: Scribed for Irma Kevin MD by Pablito Mojica expert medical writer, on [ ] at [ ], EST. Coding Level of Care Code Global (87808) Diagnoses Trigger finger, right middle finger M65.331 Postoperative abscess involving suture T81.41XA Trigger finger, left middle finger M65.332
== END 2023-11-22 14:02 | disposition home or self-care (01) ==
PROVIDERS: PCP Internal Medicine; Visit Provider Orthopaedic Surgery
DX: M65.331 Trigger finger, right middle finger (principal); T81.41XA Infection following a procedure, superficial incisional surgical site, initial encounter; M65.332 Trigger finger, left middle finger
CPT/HCPCS: 99024

== ENCOUNTER → 2023-11-22 13:35 | Outpatient (BNVA) | payer OTHER, SELFPAY | PROVIDERS: PCP Internal Medicine; Visit Provider Orthopaedic Surgery | DX: Z47.89 Encounter for other orthopedic aftercare (principal); T81.41XA Infection following a procedure, superficial incisional surgical site, initial encounter; M65.331 Trigger finger, right middle finger; Z98.890 Other specified postprocedural states; Z87.39 Personal history of other diseases of the musculoskeletal system and connective tissue | CPT/HCPCS: 99212 ==

== ENCOUNTER 2023-11-30 14:01 | Outpatient (AMB) | payer OTHER, SELFPAY ==
[2023-11-30 14:12] VITALS: BMI 33.6
--- NOTE | 2023-11-30 14:12 | A.OFFVIS_ITS ---
Vital Signs 11/30/23 14:12 Height 5 ft 7.5 in Weight 218 lb BMI 33.6 Intake Visit Reasons: 1w wound check; left middle finger Intake Note: Sienna 43 yr old female presents today for her p/o wound check visit for her left middle finger release from 11/09/23 s/p taking ABX. States she hasnt notice any more puss drainage and is doing well. Allergies nicotine Allergy (Intermediate, Verified 11/30/23 14:12) Rash metformin Adverse Reaction (Intermediate, Verified 11/30/23 14:12) stomach upset, diarrhea HPI HPI 1w wound check; left middle finger: Details: 43-year-old female who returns to the office today for post-op left middle finger trigger release, 11/09/23. She states she has no pain, puss or drainage from the wound and is doing well overall. She has no concerns today. [facility] Medical History MARÍA (generalized anxiety disorder) Right knee pain Microalbuminuria Heel spur Right elbow pain Hand numbness Mild asthma Dyslipidemia Diabetes mellitus Surgical History History of repair of rotator cuff Family History (Updated 11/06/23 @ 15:16 by Amanda Raphael MD) Father Diabetes Hypertension Kidney disease Mother Diabetes Fibromyalgia Brother No problems noted. Paternal Grandmother Stroke Social History Housing: Apartment Alcohol intake: former Patient Tobacco Use Status: Current everyday Tobacco user Tobacco use type: Cigarette Cigarettes Per Day: 8 e-Cigarette/Vaping Use: Never Used Second Hand Smoke Exposure: No service: No Current occupational status: employed Current occupational exposures/hazards: No Cognitive needs: No Hearing needs: No Vision needs: Yes (Glasses) Female Reproductive History Menstrual Age of Menarche: 13 Review of Systems Const All systems reviewed & are unremarkable except as noted in HPI and below Physical Exam Vital Signs: BMI result Body Mass Index 33.6 Extrem Other: Left hand: Incision well healed. No redness, no open wound or drainage. She can make a full fist and full extend all digits without catching or locking. NVI. Assessment & Plan Assessment & Plan (1) Postoperative abscess involving suture: Code(s): T81.41XA - Infection following a procedure, superficial incisional surgical site, initial encounter Category: Medical (2) Trigger finger, left middle finger: Code(s): M65.332 - Trigger finger, left middle finger Category: Medical Plan She will continue to increase activity as tolerated. If she notices any sign of infection, redness, skin breakdown or open area, she will contact the office, otherwise follow-up as needed. Patient Instructions: Scribed for Arnel Lira PA-C, by Nile Smith medical charge entry specialist, on 11/30/2023 at 2:15 PM EST. I, Arnel Lira PA-C, have personally reviewed and agree with the information entered by the scribe. Scribe Plan - Not visible on output: Scribed for Irma Kevin MD by Pablito Mojica medical charge entry specialist, on [ ] at [ ], EST. Coding Level of Care Code Global (29524) Diagnoses Postoperative abscess involving suture T81.41XA Trigger finger, left middle finger M65.332
== END 2023-11-30 14:58 | disposition home or self-care (01) ==
PROVIDERS: PCP Internal Medicine; Visit Provider Physician Assistant
DX: M65.332 Trigger finger, left middle finger (principal); T81.41XA Infection following a procedure, superficial incisional surgical site, initial encounter
CPT/HCPCS: 99024

== ENCOUNTER → 2023-11-30 14:01 | Outpatient (BNVA) | payer OTHER, SELFPAY | PROVIDERS: PCP Internal Medicine; Visit Provider Physician Assistant | DX: T81.41XD Infection following a procedure, superficial incisional surgical site, subsequent encounter (principal); M65.332 Trigger finger, left middle finger | CPT/HCPCS: 99212 ==

== ENCOUNTER 2024-03-09 08:34 | Outpatient (REF) | payer OTHER, SELFPAY ==
[2024-03-09 09:34] LABS: Creatinine Urine 238.03 mg/dL
[2024-03-09 09:39] LABS: Alanine Aminotransferase 25 U/L (0-31); Albumin Level 4.1 g/dL (3.5-5.0); Alkaline Phosphatase 95 U/L (39-117); Anion Gap 11 (12-20); Aspartate Amino Transferase 14 U/L (5-31); Bilirubin Total 0.5 mg/dL (0.0-1.0); Blood Urea Nitrogen 14 mg/dL (9-16); Calcium 8.8 mg/dL (8.4-10.2); Carbon Dioxide 22 mmol/L (22-29); Chloride 113 mmol/L (96-108); Cholesterol 104 mg/dL (<200); Estimated Glomerular Filt Rate > 60; Glucose Fasting 109 mg/dL (60-99); HDL Cholesterol 35 mg/dL (>40); LDL Cholesterol Calculated 54 mg/dL (<100); Sodium 142 mmol/L (135-145); Triglycerides 77 mg/dL (<150)
[2024-03-09 09:55] LABS: Vitamin D 25-OH Total 38.2 ng/mL (>30)
== END 2024-03-09 08:35 | disposition home or self-care (01) ==
LOC: HO.LAB 08:34
PROVIDERS: PCP Internal Medicine; Visit Provider Internal Medicine
DX: E11.9 Type 2 diabetes mellitus without complications (principal); E55.9 Vitamin D deficiency, unspecified; E78.5 Hyperlipidemia, unspecified
CPT/HCPCS: 36415; 80053; 80061; 82043; 82306; 82570

== ENCOUNTER 2024-03-12 16:18 | Outpatient (AMB) | payer OTHER, SELFPAY ==
--- NOTE | 2024-03-12 16:29 | A.OFFPC_ITS ---
Vital Signs 03/12/24 16:30 Height 5 ft 7.5 in Weight 214 lb BMI 33.0 BP 118/70 Blood Pressure Location Lt brachial Position Sitting Intake Visit Reasons: dm Intake Note: Patient here for a follow up on DM Exercise Scientist Required: No Accompanied by: Self / Same As Patient Allergies nicotine Allergy (Intermediate, Verified 03/12/24 16:50) Rash metformin Adverse Reaction (Intermediate, Verified 03/12/24 16:50) stomach upset, diarrhea Medication List - Last Reconciled 03/12/24 by Amanda Raphael MD acetaminophen (Tylenol Extra Strength) 500 mg PO Q6H PRN 30 days albuterol sulfate 2.5 mg (3 mL) inhalation Q6H PRN 30 days atorvastatin 40 mg PO BEDTIME 90 days betamethasone, augmented 0.05 % 1 appl topical DAILY PRN 30 days blood sugar diagnostic (FreeStyle Lite Strips) 1 strip miscellaneous BID 90 days blood-glucose meter (FreeStyle Lite Meter kit) As directed cyclobenzaprine 10 mg PO TID PRN escitalopram oxalate 5 mg PO BEDTIME 90 days ibuprofen 800 mg PO Q8H PRN lancets As directed levonorgestrel (Mirena) intrauterine DAILY nicotine 1 patch transdermal DAILY 28 days pioglitazone 45 mg PO DAILY 90 days semaglutide (Ozempic) 2 mg (0.75 mL) subcut QWEEK 30 days sennosides (Senna Lax) 8.6 mg PO BEDTIME PRN 90 days umeclidinium-vilanterol 62.5-25 mcg/actuation (Anoro Ellipta) 1 inh inhalation DAILY 60 days Ventolin HFA 90 mcg/actuation (albuterol sulfate) 2 puffs inhalation Q6H PRN 30 days NS Tobacco use date assessed: 11/06/23 Dental Screening Dental Screen Date: 03/12/24 Did you have a dental visit in the last 12 months?: Yes Did you have a dental problem in the last 6 months where you did not have access to dental care?: No Was dental information given to patient?: Patient has dentist HPI HPI Comments History of Present Illness Details This is a 43-year-old female with diabetes mellitus type 2, hyperlipidemia, mild asthma and moderate major depression that comes today for follow-up on her conditions. A1c within goal. LDL within goal. Use rescue inhaler once a month. Depression stable with escitalopram. Denies any chest pain or shortness on breath. Actos will be decreased from 45 mg to 30 mg. No side effects from Ozempic. [facility] Medical History (Updated 03/12/24 @ 17:01 by Amanda Raphael MD) MARÍA (generalized anxiety disorder) Right knee pain Microalbuminuria Heel spur Right elbow pain Hand numbness Mild asthma Dyslipidemia Diabetes mellitus Surgical History History of repair of rotator cuff Family History Father Diabetes Hypertension Kidney disease Mother Diabetes Fibromyalgia Brother No problems noted. Paternal Grandmother Stroke Social History Housing: Apartment Alcohol intake: former Patient Tobacco Use Status: Current everyday Tobacco user Tobacco use type: Cigarette Cigarettes Per Day: 8 e-Cigarette/Vaping Use: Never Used Second Hand Smoke Exposure: No service: No Current occupational status: employed Current occupational exposures/hazards: No Cognitive needs: No Hearing needs: No Vision needs: Yes (Glasses) Female Reproductive History Menstrual Age of Menarche: 13 Questionnaire PHQ-9 Over the last 2 weeks, how often have you been bothered by any of the following problems? 1. Little interest or pleasure in doing things: nearly every day 2. Feeling down, depressed, or hopeless: nearly every day 3. Trouble falling or staying asleep, or sleeping too much: several days 4. Feeling tired or having little energy: several days 5. Poor appetite or overeating: nearly every day 6. Feeling bad about yourself - or that you are a failure or have let yourself or your family down: not at all 7. Trouble concentrating on things, such as reading the newspaper or watching television: not at all 8. Moving or speaking so slowly that other people could have noticed. Or the opposite - being so fidgety or restless that you have been moving around a lot more than usual: nearly every day 9. Thoughts that you would be better off or of hurting yourself in some way: not at all Total score: 14 Depression Screening Interpretation: Positive (no suicidal thoughts) Depression Screening Follow-up: Existing condition, In treatment and Follow-up Visit Requested Depression Screening Done: Yes 99173 - PHQ-9 Billing: Yes Source: Developed by Drs. Isiah Garcia, Maria Bullard, Jude Todd and colleagues, with an educational amara from [employer]. Thrive Questionnaire Date Thrive assessed: 11/06/23 MARÍA-7 AMB Questionnaire MARÍA-7 Date MARÍA - 7 assessed: 11/06/23 Source: Developed by Drs. Isiah Garcia, Maria Bullard, Jude Todd and colleagues, with an educational amara from [employer]. Review of Systems Const All systems reviewed & are unremarkable except as noted in HPI and below Card Denies chest pain at rest, Denies chest pain with activity, Denies edema, Denies irregular heart rhythm, Denies claudication, Denies dyspnea, Denies dyspnea on exertion, Denies orthopnea, Denies paroxysmal nocturnal dyspnea and Denies slow heart rate Resp Denies cough, Denies dyspnea and Denies dyspnea on exertion GI Denies abdominal pain, Denies change in bowel habits, Denies excessive flatus, Denies nausea and Denies vomiting Denies urinary incontinence, Denies urinary hesitancy and Denies urinary urgency Musc Denies abnormal gait, Denies atrophy, Denies deformity and Denies limited range of motion Skin/Breast Denies bleeding lesions, Denies changing lesions and Denies rash Neuro Denies abnormal gait and Denies lack of coordination Physical exam (Primary Care) Vital Signs: Last Vital Signs BP 118/70 03/12/24 16:30 BMI result Body Mass Index 33.0 BMI Assessment/Plan discussion: High BMI High, discussed plan: lifestyle, weight reduction, dietary and physical activity Tobacco/Smoking Status: Tobacco use Status Tobacco use date assessed 11/06/23 03/12/24 16:32 Patient Tobacco Use Status Current everyday Tobacco 03/12/24 16:32 Tobacco use type Cigarette 03/12/24 16:32 e-Cigarette/Vaping Use Never Used 03/12/24 16:32 Are you ready to quit: No Tobacco cessation counseling provided: Yes Items discussed: QuitWorks Relapse Prevention: discussed the importance of a supportive environment, discussed negative mood or depression after quitting, weight gain after smoking is common and discussed dietary, exercise and/or lifestyle changes Number of minutes spent counselin CPT code: 25291 - 4-10 Minutes PHQ-9: PHQ-9 Score PHQ-9: Total score 14 03/12/24 16:48 Depression Screening Interpretation: Positive (no suicidal thoughts) Depression Screening Follow-up: Existing condition, In treatment and Follow-up Visit Requested Thrive Assessment: Date of Thrive Assessment Date Thrive assessed 11/06/23 03/12/24 16:32 Resp Effort & Inspection: normal respiratory effort Auscultation: clear to auscultation bilaterally Cardio Jugular venous distension: no JVD Rate: regular rate Rhythm: regular rhythm Heart sounds: S1 normal heart sound present and S2 normal heart sound present Extrem General: Yes full ROM Psych Appearance: grossly normal Results AMB Hemoglobin A1c AMB Hemoglobin A1c 4.7 % Last Edit by CHRISTIANO Marley on 03/12/24 16:5 0 Assessment and Plan Assessment & Plan (1) Moderate major depression: Code(s): F32.1 - Major depressive disorder, single episode, moderate Plan: Continue escitalopram. (2) Diabetes mellitus: Code(s): E11.9 - Type 2 diabetes mellitus without complications Qualifiers: Diabetes mellitus type: type 2 Diabetes mellitus fci insulin use: without industrial diamond polisher use Diabetes mellitus complication status: without co mplication Qualified Code(s): E11.9 - Type 2 diabetes mellitus without complications Plan: Decrease Actos. Continue Ozempic. A1c goal is equal or less than 7%. (3) Mild asthma: Code(s): J45.909 - Unspecified asthma, uncomplicated Qualifiers: Asthma persistence: persistent Asthma complication type: uncomplicated Qualified Code(s): J45.30 - Mild persistent asthma, uncomplicated Plan: Continue Anoro. Use rescue inhaler as needed. (4) Dyslipidemia: Code(s): E78.5 - Hyperlipidemia, unspecified Plan: Continue statins. LDL goal is less than 70. Orders: Orders AMB Hemoglobin A1c Today E11.9 - Type 2 diabetes mellitus without complications Microalbumin, Random (w Creat) 4 Months E11.9 - Type 2 diabetes mellitus without complications Comprehensive [place]. Panel Fast 4 Months E11.9 - Type 2 diabetes mellitus without complications Lipid Panel 4 Months E78.5 - Hyperlipidemia, unspecified Medications: New pioglitazone 30 mg PO DAILY 90 days 90 tabs 1RF Discontinued pioglitazone Discontinued Reason: Patient Completed Course 45 mg PO DAILY 90 days 90 tabs 1RF E11.9 - Type 2 diabetes mellitus without complications Coding Level of Care Code Est Pt Level 4 (87347) Complex EM visit Add On G2211 Diagnoses Moderate major depression F32.1 Type 2 diabetes mellitus without complication, without long-term current use of insulin E11.9 Diabetes mellitus type: type 2 Diabetes mellitus industrial diamond polisher insulin use: without fci use Diabetes mellitus complication status: without complication Mild persistent asthma without complication J45.30 Asthma persistence: persistent Asthma complication type: uncomplicated Dyslipidemia E78.5 Additional Codes Vital Signs *Quality* - CPT code: 60802 - 4-10 Minutes ([id number]) Time Spent (min) 24
[2024-03-12 16:30] VITALS: BP 118/70; BMI 33.0
== END 2024-03-12 16:57 | disposition home or self-care (01) ==
PROVIDERS: PCP Internal Medicine; Visit Provider Internal Medicine
DX: E11.69 Type 2 diabetes mellitus with other specified complication (principal); F32.1 Major depressive disorder, single episode, moderate; J45.30 Mild persistent asthma, uncomplicated; E78.5 Hyperlipidemia, unspecified
CPT/HCPCS: 83036; 99214; G2211

== ENCOUNTER 2024-05-23 09:03 | Outpatient (REF) | payer OTHER, SELFPAY ==
[2024-05-23 18:36] LABS: CT PCR NOT DETECTED (Not Detect.); NG PCR NOT DETECTED (Not Detect.)
== END 2024-05-23 09:04 | disposition home or self-care (01) ==
LOC: HO.LNP 09:03
PROVIDERS: PCP Internal Medicine; Visit Provider Obstetrics & Gynecology
DX: N93.9 Abnormal uterine and vaginal bleeding, unspecified (principal); N92.6 Irregular menstruation, unspecified; Z97.5 Presence of (intrauterine) contraceptive device
CPT/HCPCS: 87491; 87591; 99212

== ENCOUNTER 2024-05-23 09:03 | Outpatient (AMB) | payer OTHER, SELFPAY ==
[2024-05-23 09:07] VITALS: BMI 33.0
--- NOTE | 2024-05-23 09:07 | A.OFFVIS_ITS ---
Vital Signs 05/23/24 09:07 Height 5 ft 7.5 in Weight 213 lb 13.574 oz BMI 33.0 Intake Visit Reasons: Vaginal bleeding with Mirena Director Of Transportation Required: No Information Interpreted: non-clinical & clinical Legal Billing Coordinator: Legal Billing Coordinator Present (Diane ALVARADO) Accompanied by: Self / Same As Patient Allergies nicotine Allergy (Intermediate, Verified 05/23/24 09:09) Rash metformin Adverse Reaction (Intermediate, Verified 05/23/24 09:09) stomach upset, diarrhea HPI Comments Details: Presenting complaining of irregular menstrual cycles on Mirena IUD. Last co testing was in 06/21 was negative Last mammogram was BI-RADS 1 in 09/23 [facility] Medical History MARÍA (generalized anxiety disorder) Right knee pain Microalbuminuria Heel spur Right elbow pain Hand numbness Mild asthma Dyslipidemia Diabetes mellitus Surgical History History of repair of rotator cuff Family History Father Diabetes Hypertension Kidney disease Mother Diabetes Fibromyalgia Brother No problems noted. Paternal Grandmother Stroke Social History Housing: Apartment Alcohol intake: former Patient Tobacco Use Status: Current everyday Tobacco user Tobacco use type: Cigarette Cigarettes Per Day: 8 e-Cigarette/Vaping Use: Never Used Second Hand Smoke Exposure: No service: No Current occupational status: employed Current occupational exposures/hazards: No Cognitive needs: No Hearing needs: No Vision needs: Yes (Glasses) Female Reproductive History Menstrual Age of Menarche: 13 Review of Systems Const All systems reviewed & are unremarkable except as noted in HPI and below Physical Exam Vital Signs: BMI result Body Mass Index 33.0 General: Yes no CVA tenderness External Female Exam: normal external appearance and normal appearance of the urethra Speculum Exam - Vagina: normal appearance of the vagina, normal palpation, no lesions and no masses Speculum Exam - Cervix: normal appearance of the cervix, normal palpation, no lesions, no masses, nontender and Other cervical findings present (IUD string in place) Bimanual exam- vagina & uterus: normal bimanual exam, normal palpation, uterine size normal, normal palpation, uterine shape normal, No Cervical tenderness present and non-tender Bimanual Exam- Adnexa, other: normal adnexae Back/Spine/Pelvis Back: no CVA tenderness Assessment & Plan Assessment & Plan (1) Abnormal uterine bleeding (AUB): Comment: With Mirena IUD Code(s): N93.9 - Abnormal uterine and vaginal bleeding, unspecified Category: Medical Plan: Urine test done in the office was negative. GC and chlamydia taken CBC, TSH, prolactin, HCG, and pelvic ultrasound ordered. Discussed with the patient the different causes of abnormal bleeding including thyroid disorders, uterine and ovarian pathology, endometrial hyperplasia, carcinoma and other potential causes. Discussed with the patient the work up including CBC (to r/o anemia), TSH, prolactin, pelvic Ultrasound, endometrial biopsy to r/o endometrial pathology. All questions answered and the patient verbalized understanding. Instructed the patient to schedule an appointment for an endometrial biopsy in 2 weeks. Orders: Orders Prolactin Today N93.9 - Abnormal uterine and vaginal bleeding, unspecified TSH reflex Free T4 Today N93.9 - Abnormal uterine and vaginal bleeding, unspecified HCG Quantitative Today N93.9 - Abnormal uterine and vaginal bleeding, unspecified Complete Blood Count no Diff Today N93.9 - Abnormal uterine and vaginal bleeding, unspecified US pelvic and transvaginal Today N93.9 - Abnormal uterine and vaginal bleeding, unspecified Coding Level of Care Code Est Pt Level 3 (88262) Diagnoses Abnormal uterine bleeding (AUB) N93.9
== END 2024-05-23 09:27 | disposition home or self-care (01) ==
PROVIDERS: PCP Internal Medicine; Visit Provider Obstetrics & Gynecology
DX: N93.9 Abnormal uterine and vaginal bleeding, unspecified (principal)
CPT/HCPCS: 99213

== ENCOUNTER 2024-05-28 13:28 | Outpatient (REF) | payer OTHER, SELFPAY | END 2024-05-28 13:29 | disposition home or self-care (01) | LOC: HO.US 13:28 | PROVIDERS: PCP Internal Medicine; Visit Provider Obstetrics & Gynecology | DX: N93.9 Abnormal uterine and vaginal bleeding, unspecified (principal) | CPT/HCPCS: 76830; 76856 ==

== ENCOUNTER 2024-06-06 13:38 | Outpatient (AMB) | payer OTHER, SELFPAY ==
--- NOTE | 2024-06-06 13:39 | A.OFFVIS_ITS ---
Intake Visit Reasons: IUD Removal discussion/ OK PER Allergies nicotine Allergy (Intermediate, Verified 05/23/24 09:09) Rash metformin Adverse Reaction (Intermediate, Verified 05/23/24 09:09) stomach upset, diarrhea HPI Comments Details: The patient is schedule a telehealth appointment to discuss Mirena IUD removal. 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 Paternal Grandmother Stroke Social History Housing: Apartment Alcohol intake: former Patient Tobacco Use Status: Current everyday Tobacco user Tobacco use type: Cigarette Cigarettes Per Day: 8 e-Cigarette/Vaping Use: Never Used Second Hand Smoke Exposure: No service: No Current occupational status: employed Current occupational exposures/hazards: No Cognitive needs: No Hearing needs: No Vision needs: Yes (Glasses) Female Reproductive History Menstrual Age of Menarche: 13 Review of Systems Const All systems reviewed & are unremarkable except as noted in HPI and below Reports as per HPI and Reports no additional complaints GI Reports no additional complaints Reports no additional complaints Telehealth Telehealth Telehealth Platform: Telephone Location of provider rendering services: practice address Location of patient: address on file Patient Identification confirmed using: Name, : Yes Telehealth method: voice only Patient verbally consented to treatment: Yes Patient verbally consented to billing insurance company: Yes Patient informed of any privacy concerns related to visit: Yes Assessment & Plan Assessment & Plan (1) Abnormal uterine bleeding (AUB): Comment: With Mirena IUD Code(s): N93.9 - Abnormal uterine and vaginal bleeding, unspecified Category: Medical Plan: Discussed with the patient the effects on IUD removal on menstrual cycles causing heavier menstrual cycles and possible increase in dysmenorrhea, the patient verbalized understanding and agreed with the plan. Instructions given the patient to schedule Mirena IUD removal with EMB within 2 weeks. All questions answered, the patient verbalized understanding I spent a total of 20 minutes reviewing the chart, talking to the patient via phone and documenting in the medical record. Coding Level of Care Code Tele Est Pt Level 1 (38594) Diagnoses Abnormal uterine bleeding (AUB) N93.9
== END 2024-06-06 14:21 | disposition home or self-care (01) ==
LOC: HO.HWS 13:38
PROVIDERS: PCP Internal Medicine; Visit Provider Obstetrics & Gynecology
DX: N93.9 Abnormal uterine and vaginal bleeding, unspecified (principal)
CPT/HCPCS: 99211

== ENCOUNTER 2024-06-19 14:10 | Outpatient (REF) | payer OTHER, SELFPAY | END 2024-06-19 14:11 | disposition home or self-care (01) | LOC: HO.LNP 14:10 | PROVIDERS: PCP Internal Medicine; Visit Provider Obstetrics & Gynecology | DX: N93.9 Abnormal uterine and vaginal bleeding, unspecified (principal); Z30.432 Encounter for removal of intrauterine contraceptive device | CPT/HCPCS: 58100; 58301; 88305 ==

== ENCOUNTER 2024-06-19 14:10 | Outpatient (AMB) | payer OTHER, SELFPAY ==
--- NOTE | 2024-06-19 14:14 | A.OFFVIS_ITS ---
Vital Signs 06/19/24 14:19 BP 116/76 Intake Visit Reasons: IUD removal/ EMB Memorial Counselor Required: No Caretaker Resort: Caretaker Resort Present (Ruthie) Accompanied by: Self / Same As Patient Allergies nicotine Allergy (Intermediate, Verified 06/19/24 14:16) Rash metformin Adverse Reaction (Intermediate, Verified 06/19/24 14:16) stomach upset, diarrhea HPI Comments Details: Presenting for Mirena IUD removal and EMB [facility] Medical History MARÍA (generalized anxiety disorder) Right knee pain Microalbuminuria Heel spur Right elbow pain Hand numbness Mild asthma Dyslipidemia Diabetes mellitus Surgical History History of repair of rotator cuff Family History Father Diabetes Hypertension Kidney disease Mother Diabetes Fibromyalgia Brother No problems noted. Paternal Grandmother Stroke Social History Housing: Apartment Alcohol intake: former Patient Tobacco Use Status: Current everyday Tobacco user Tobacco use type: Cigarette Cigarettes Per Day: 8 e-Cigarette/Vaping Use: Never Used Second Hand Smoke Exposure: No service: No Current occupational status: employed Current occupational exposures/hazards: No Cognitive needs: No Hearing needs: No Vision needs: Yes (Glasses) Female Reproductive History Menstrual Age of Menarche: 13 Duration of menses: 3-5 days Date of last menstrual period: 06/04/24 Review of Systems Const All systems reviewed & are unremarkable except as noted in HPI and below Physical Exam Vital Signs: Last Vital Signs BP 116/76 06/19/24 14:19 General: Yes no CVA tenderness External Female Exam: normal external appearance and normal appearance of the urethra Speculum Exam - Vagina: normal appearance of the vagina, normal palpation, no lesions and no masses Speculum Exam - Cervix: normal appearance of the cervix, normal palpation, no lesions, no masses, nontender and Other cervical findings present (IUD thread in place) Bimanual exam- vagina & uterus: normal bimanual exam, normal palpation, uterine size normal, normal palpation, uterine shape normal, No Cervical tenderness present and non-tender Bimanual Exam- Adnexa, other: normal adnexae Back/Spine/Pelvis Back: no CVA tenderness Office Procedures Endometrial Biopsy Details: The patient was counseled regarding the indication and benefits of endometrial sampling to rule out endometrial pathology including not limited to endometrial hyperplasia or endometrial cancer and others; The alternatives (Either do nothing vs. hysteroscopy D&C) & the risks were discussed with the patient including but not limited: pain, uterine perforation, bleeding, infection, possible injury to bladder, bowel, ureter, possible need for blood transfusion with all its possible risks. The patient verbalized understanding all questions answered and signed consent. Urine test done in the office was negative The patient was placed into the dorsal lithotomy position; a speculum was inserted in the vagina. Using aseptic technique for the procedure, the cervix was cleansed with Betadine. The anterior lip of the cervix was grasped with a single tooth tenaculum. The uterus was sounded to 7 cm with a 4 mm Pipelle was used. Tissues samples were obtained and placed in formalin, in a patient labeled container and sent to the pathology department. At the end of the procedure, there was minimal bleeding noted The patient tolerated the procedure well and was discharged in good condition with the following instructions: Nothing in the vagina until the bleeding stops. No sex until the bleeding stops, to call if any of the following occurs: fever (>100.4), flu-like symptoms, abdominal pain, heavy bleeding, four smelling vaginal discharge. The patient was instructed to schedule a Follow up appointment in 2 weeks to discuss pathology results of the biopsy and treatment options. This note was generated with a voice recognition program. Some errors may have been overlooked during the review of this note. Sometimes these errors may affect the content or meaning of a given sentence. 06646-Unhvzbtkole Biopsy IUD Insert/Removal Details Details: Counseling/Consent: After discussing with the patient the risks of the procedure including bleeding, infection, scar tissue formation, , possible injury to blood vessels or nerves, chronic arm pain, blood transfusion, and irregular unpredictable bleeding Alternative options were discussed with the patient including but not limited: Do nothing. The patient signed the consent and agreed with the plan; all questions answered. Urine test was done in the office and was negative Preop dx: Requesting IUD removal Op: IUD removal Post op dx: same EBL= 10 cc Procedure: The patient was put in the dorsal lithotomy position a speculum was inserted in the vagina the IUD thread identified. Using a Rozina clamp the thread was grasped and the IUD pulled out with no complications. The patient tolerated the procedure well and was advised to use a different method for contraception. Discharge instructions: Instructions were given to the pt to call if temp>100.4, abdominal pain heavy vaginal bleeding, n/v occur. The patient verbalized understanding and all questions answered. This note was generated with a voice recognition program. Some errors may have been overlooked during the review of this note. Sometimes these errors may affect the content or meaning of a given sentence. 06464-DIY Removal Procedure code (CPT) selection complete Assessment & Plan Assessment & Plan (1) Encounter for IUD removal: Code(s): Z30.432 - Encounter for removal of intrauterine contraceptive device Category: Medical Plan: IUD removed, see procedure note (2) Abnormal uterine bleeding (AUB): Comment: With Mirena IUD Code(s): N93.9 - Abnormal uterine and vaginal bleeding, unspecified Category: Medical Plan: EMB done, see procedure note Orders: Orders AMB HCG Urine Test Today Z32.02 - Encounter for test, resu lt negative Surgical Today N93.9 - Abnormal uterine and vaginal bleeding, unspecified AMB Endometrial Biopsy Today N93.9 - Abnormal uterine and vaginal bleeding, unspecified Coding Level of Care Code Procedure Only Diagnoses Encounter for IUD removal Z30.432 Abnormal uterine bleeding (AUB) N93.9 CPT Codes Endometrial Biopsy - CPT: 87186-Whejwpqjbzb Biopsy ([id number]) Details - CPT: 25650-DZT Removal ([id number])
[2024-06-19 14:19] VITALS: BP 116/76
== END 2024-06-19 14:31 | disposition home or self-care (01) ==
PROVIDERS: PCP Internal Medicine; Visit Provider Obstetrics & Gynecology
DX: N93.9 Abnormal uterine and vaginal bleeding, unspecified (principal); Z30.432 Encounter for removal of intrauterine contraceptive device
CPT/HCPCS: 58100; 58301

== ENCOUNTER 2024-07-08 12:37 | Outpatient (AMB) | payer OTHER, SELFPAY ==
--- NOTE | 2024-07-08 12:37 | A.OFFVIS_ITS ---
Vital Signs 07/08/24 12:38 Height 5 ft 7.5 in Weight 213 lb BMI 32.9 Intake Visit Reasons: OV - Left Large Retracted RTC Tear from 2021 Intake Note: Sienna is a 43 year old right hand dominant female who presents today for a follow up of her right shoulder. She was seen last in 2021 for a Large retracted RTC tear, Surgical intervention was recommended but she did not move forward with plan. Patient reports that she is having continued pain and limited ROM of the shoulder that is interfering with daily activity. Allergies nicotine Allergy (Intermediate, Verified 07/08/24 12:39) Rash metformin Adverse Reaction (Intermediate, Verified 07/08/24 12:39) stomach upset, diarrhea HPI HPI OV - Left Large Retracted RTC Tear from 2021: Details: Sienna is a 43-year-old woman who comes in with continued left shoulder pain and weakness. I saw her 2 years ago and at that time she had a large rotator cuff tear which she elected to treat conservatively. She returns today expressing regret for that decision in wanting to proceed forward with surgery. She states her shoulder continues to bother her and she recently reinjured it. [facility] Medical History MARÍA (generalized anxiety disorder) Right knee pain Microalbuminuria Heel spur Right elbow pain Hand numbness Mild asthma Dyslipidemia Diabetes mellitus Surgical History History of repair of rotator cuff Family History Father Diabetes Hypertension Kidney disease Mother Diabetes Fibromyalgia Brother No problems noted. Paternal Grandmother Stroke Social History Housing: Apartment Alcohol intake: former Patient Tobacco Use Status: Current everyday Tobacco user Tobacco use type: Cigarette Cigarettes Per Day: 8 e-Cigarette/Vaping Use: Never Used Second Hand Smoke Exposure: No service: No Current occupational status: employed Current occupational exposures/hazards: No Cognitive needs: No Hearing needs: No Vision needs: Yes (Glasses) Female Reproductive History Menstrual Age of Menarche: 13 Physical Exam Vital Signs: BMI result Body Mass Index 32.9 Extrem Other: 4/5 empty can Negative lift-off Full passive range of motion Active abduction To 90 with pain negative lift-off Equivocal Doreen Results Reviewed Results Reviewed: I personally reviewed the MR images. Large retracted tear superior rotator cuff without atrophy Assessment & Plan Assessment & Plan (1) Rotator cuff tear, left: Code(s): M75.102 - Unspecified rotator cuff tear or rupture of left shoulder, not specified as traumatic Category: Medical Plan: This is a 43-year-old woman with a large left rotator cuff tear it has been present for several years. She continues to have weakness and dysfunction and I recommend left rotator cuff repair. I reviewed her MRI with her and discussed treatment options. I recommend surgery and she agrees. I discussed the risks, benefits alternatives including to, but not limited to, risk of infection, stiffness, pain. I also discussed the possibility that the injury is not repairable. She expressed understanding and we will proceed forward accordingly. Coding Level of Care Code Est Pt Level 4 (18581) Diagnoses Rotator cuff tear, left M75.102
[2024-07-08 12:38] VITALS: BMI 32.9
== END 2024-07-08 13:11 | disposition home or self-care (01) ==
PROVIDERS: PCP Internal Medicine; Visit Provider Orthopaedic Surgery
DX: M75.102 Unspecified rotator cuff tear or rupture of left shoulder, not specified as traumatic (principal)
CPT/HCPCS: 99214

== ENCOUNTER → 2024-07-08 12:37 | Outpatient (BNVA) | payer OTHER, SELFPAY | PROVIDERS: PCP Internal Medicine; Visit Provider Orthopaedic Surgery | DX: M75.102 Unspecified rotator cuff tear or rupture of left shoulder, not specified as traumatic (principal) | CPT/HCPCS: 99212 ==

== ENCOUNTER 2024-08-06 13:59 | Outpatient (AMB) | payer OTHER, SELFPAY ==
--- NOTE | 2024-08-06 14:02 | MHC.OFFVIS ---
Intake Visit Reasons: EMB follow up Senior It Auditor: Senior It Auditor Present (Ruthie) Accompanied by: Self / Same As Patient Allergies nicotine Allergy (Intermediate, Verified 08/06/24 14:02) Rash metformin Adverse Reaction (Intermediate, Verified 08/06/24 14:02) stomach upset, diarrhea HPI Comments Details: The patient is presenting for follow-up to discuss the results of her abnormal uterine bleeding workup and options of treatment. The following workup was done.: H&H, TSH, hCG were not done yet GC and chlamydia were negative. Endometrial biopsy pathology showed the following: Fragments of benign endometrium with extensive pseudodecidual change, consistent with exogenous progestin; few fragments of fibrinoid/necrotic material; no atypia identified. Co testing was done in 06/21 was negative. Mammogram was done in 09/23, was BI-RADS 1 Pelvic ultrasound showed the following: IMPRESSION: An etiology for the patient's abnormal uterine and vaginal bleeding has not been found. An IUD is present in good position. Since then IUD were taken out per patient request, since the patient is interested in getting COUNTS INCLUDE 234 BEDS AT THE [facility] Medical History MARÍA (generalized anxiety disorder) Right knee pain Microalbuminuria Heel spur Right elbow pain Hand numbness Mild asthma Dyslipidemia Diabetes mellitus Surgical History History of repair of rotator cuff Family History Father Diabetes Hypertension Kidney disease Mother Diabetes Fibromyalgia Brother No problems noted. Paternal Grandmother Stroke Social History Housing: Apartment Alcohol intake: former Patient Tobacco Use Status: Current everyday Tobacco user Tobacco use type: Cigarette Cigarettes Per Day: 8 e-Cigarette/Vaping Use: Never Used Second Hand Smoke Exposure: No service: No Current occupational status: employed Current occupational exposures/hazards: No Cognitive needs: No Hearing needs: No Vision needs: Yes (Glasses) Female Reproductive History Menstrual Age of Menarche: 13 Review of Systems Const All systems reviewed & are unremarkable except as noted in HPI and below Reports as per HPI and Reports no additional complaints GI Reports no additional complaints Reports no additional complaints Assessment & Plan Assessment & Plan (1) Abnormal uterine bleeding (AUB): Code(s): N93.9 - Abnormal uterine and vaginal bleeding, unspecified Category: Medical Plan: Discussed with the patient the results of the work up done and options of treatment including Lysteda, BCP's, Mirena IUD.. All pros, cons, risks and benefits if each option was discussed with the patient and the patient decided to hold off any treatments and attempt conception. vitamin 1 tablet p.o. q.d. recommended.. All questions answered the patient verbalized understanding. Coding Level of Care Code Est Pt Level 3 (91768) Diagnoses Abnormal uterine bleeding (AUB) N93.9
== END 2024-08-06 14:15 | disposition home or self-care (01) ==
PROVIDERS: PCP Internal Medicine; Visit Provider Obstetrics & Gynecology
DX: N93.9 Abnormal uterine and vaginal bleeding, unspecified (principal)
CPT/HCPCS: 99213

== ENCOUNTER → 2024-08-06 13:59 | Outpatient (BNVA) | payer OTHER, SELFPAY | PROVIDERS: PCP Internal Medicine; Visit Provider Obstetrics & Gynecology | DX: N93.9 Abnormal uterine and vaginal bleeding, unspecified (principal) | CPT/HCPCS: 99212 ==

== ENCOUNTER 2024-08-07 08:16 | Outpatient (REF) | payer OTHER, SELFPAY ==
[2024-08-07 08:57] LABS: Hematocrit 39.1 % (37.0-47.0); Hemoglobin 13.1 g/dl (12.0-16.0); Mean Corpuscular HGB Conc 33.5 g/dl (31.0-35.0); Mean Corpuscular Volume 95.4 fL (80.0-98.0); Mean Platelet Volume 9.6 fL (9.4-12.3); Platelet Count 317 X10*3/uL (160-400); Red Cell Distribution Width 12.7 % (11.0-16.0); White Blood Count 8.6 X10*3/uL (4.8-10.8)
[2024-08-07 09:25] LABS: Alkaline Phosphatase 86 U/L (39-117); Anion Gap 11 (12-20); Aspartate Amino Transferase 24 U/L (5-31); Bilirubin Total 0.4 mg/dL (0.0-1.0); Blood Urea Nitrogen 17 mg/dL (9-16); Calcium 9.2 mg/dL (8.4-10.2); Carbon Dioxide 24 mmol/L (22-29); Chloride 112 mmol/L (96-108); Cholesterol 130 mg/dL (<200); Estimated Glomerular Filt Rate > 60; Glucose Fasting 105 mg/dL (60-99); HDL Cholesterol 41 mg/dL (>40); LDL Cholesterol Calculated 70 mg/dL (<100); Potassium 4.2 mmol/L (3.3-5.1); Sodium 143 mmol/L (135-145); Total Protein 7.2 g/dL (6.5-8.0); Triglycerides 95 mg/dL (<150)
[2024-08-07 09:30] LABS: Creatinine Urine 213.79 mg/dL
[2024-08-07 09:38] LABS: Alanine Aminotransferase 35 U/L (0-31)
[2024-08-07 09:44] LABS: HCG Quantitative < 2 mIU/mL; TSH reflex Free T4 1.35 uIU/mL (0.32-4.0)
== END 2024-08-07 08:17 | disposition home or self-care (01) ==
LOC: HO.LAB 08:16
PROVIDERS: Obstetrics & Gynecology; PCP Internal Medicine; Visit Provider Internal Medicine
DX: E11.9 Type 2 diabetes mellitus without complications (principal); E78.5 Hyperlipidemia, unspecified; N93.9 Abnormal uterine and vaginal bleeding, unspecified
CPT/HCPCS: 36415; 80053; 80061; 82043; 82570; 84146; 84443; 84702; 85027

== ENCOUNTER 2024-08-12 17:09 | Outpatient (AMB) | payer OTHER, SELFPAY ==
--- NOTE | 2024-08-12 17:14 | MHC.PC.OV ---
Vital Signs 08/12/24 17:21 Height 5 ft 7.5 in Weight 207 lb BMI 31.9 BP 136/70 Blood Pressure Location Lt brachial Position Sitting Intake Visit Reasons: follow up Intake Note: Patient here for a follow up Core Placer Required: Yes Core Placer Language: Ship Engines Operating Engineer Name: Amanda Raphael MD Information Interpreted: non-clinical & clinical Accompanied by: Self / Same As Patient Allergies nicotine Allergy (Intermediate, Verified 08/12/24 17:48) Rash metformin Adverse Reaction (Intermediate, Verified 08/12/24 17:48) stomach upset, diarrhea Medication List - Last Reconciled 08/12/24 by Amanda Raphael MD acetaminophen (Tylenol Extra Strength) 500 mg PO Q6H PRN 30 days albuterol sulfate 2.5 mg (3 mL) inhalation Q6H PRN 30 days atorvastatin 40 mg PO BEDTIME 90 days betamethasone, augmented 0.05 % 1 appl topical DAILY PRN 30 days blood sugar diagnostic (FreeStyle Lite Strips) 1 strip miscellaneous BID 90 days blood-glucose meter (FreeStyle Lite Meter kit) As directed cyclobenzaprine 10 mg PO TID PRN ibuprofen 800 mg PO Q8H PRN lancets As directed levonorgestrel (Mirena) intrauterine DAILY nicotine 1 patch transdermal DAILY 28 days semaglutide (Ozempic) 2 mg (0.75 mL) subcut QWEEK 30 days sennosides (Senna Lax) 8.6 mg PO BEDTIME PRN 90 days umeclidinium-vilanterol 62.5-25 mcg/actuation (Anoro Ellipta) 1 inh inhalation DAILY 60 days Ventolin HFA 90 mcg/actuation (albuterol sulfate) 2 puffs inhalation Q6H PRN 30 days NS Tobacco use date assessed: 08/12/24 Dental Screening Dental Screen Date: 08/12/24 Did you have a dental visit in the last 12 months?: No Did you have a dental problem in the last 6 months where you did not have access to dental care?: No Was dental information given to patient?: Patient has dentist HPI HPI Comments History of Present Illness Details The patient is a 44-year-old female presenting with nicotine dependence, depressive disorder, and anxiety. She has expressed a desire to cease smoking and is seeking assistance in managing depression and anxiety. These mental health issues appear to have been exacerbated following the recent passing of her parents, specifically her father's a couple of weeks after visiting [facility]. Her father had been suffering from cardiac issues and undergoing dialysis at the time of his at the age of 80. Additionally, the of her mother, which the patient found particularly distressing, left a significant emotional impact. The patient associates smoking cessation with her existing mental health conditions and is interested in medication that could aid in quitting smoking while addressing her depression and anxiety. She has never used Bupropion, a medication she described as helpful for smoking cessation without resulting in weight gain and is willing to start it daily in the morning. She denies experiencing tiredness as a side effect. She has diabetes mellitus type 2 with A1c within goal and hyperlipidemia on statins. [facility] Medical History MARÍA (generalized anxiety disorder) Right knee pain Microalbuminuria Heel spur Right elbow pain Hand numbness Mild asthma Dyslipidemia Diabetes mellitus Surgical History History of repair of rotator cuff Family History Father Diabetes Hypertension Kidney disease Mother Diabetes Fibromyalgia Brother No problems noted. Paternal Grandmother Stroke Social History Housing: Apartment Alcohol intake: former Patient Tobacco Use Status: Current everyday Tobacco user Tobacco use type: Cigarette Cigarettes Per Day: 8 e-Cigarette/Vaping Use: Never Used Second Hand Smoke Exposure: No service: No Current occupational status: employed Current occupational exposures/hazards: No Cognitive needs: No Hearing needs: No Vision needs: Yes (Glasses) Female Reproductive History Menstrual Age of Menarche: 13 Questionnaire PHQ-9 Over the last 2 weeks, how often have you been bothered by any of the following problems? 1. Little interest or pleasure in doing things: nearly every day 2. Feeling down, depressed, or hopeless: nearly every day 3. Trouble falling or staying asleep, or sleeping too much: nearly every day 4. Feeling tired or having little energy: more than half the days 5. Poor appetite or overeating: several days 6. Feeling bad about yourself - or that you are a failure or have let yourself or your family down: more than half the days 7. Trouble concentrating on things, such as reading the newspaper or watching television: several days 8. Moving or speaking so slowly that other people could have noticed. Or the opposite - being so fidgety or restless that you have been moving around a lot more than usual: not at all 9. Thoughts that you would be better off or of hurting yourself in some way: not at all Total score: 15 Depression Screening Interpretation: Positive (no suicidal thoughts) Depression Screening Follow-up: Existing condition, New Medication prescribed, Community Mental Health Worker F/U and Follow-up Visit Requested Depression Screening Done: Yes 06930 - PHQ-9 Billing: Yes Source: Developed by Drs. Isiah Garcia, Maria Bullard, Jude Todd and colleagues, with an educational amara from [employer] (deja mi). Thrive Questionnaire Date Thrive assessed: 08/12/24 I am a: Patient What is your living situation today?: I have a steady place to live Within the past 12 months, did the food you bought not last and you didn't have the money to get more?: Never true Within the past 12 months, did you worry whether your food would run out before you got money to buy more?: Never true Do you have trouble paying for medicines?: No Do you have trouble getting transportation to medical appointments?: No Do you have trouble paying your heating and electricity bill?: No Do you have trouble taking care of your child, family member or friend?: No Do you have trouble with day-to-day activities such as bathing, preparing meals, shopping, managing finances, etc.?: No Are you currently unemployed and looking for a job?: No Are you interested in more education?: No Please select the resources that you would like help with: None Currently or been in a relationship where the following occur: No concerns reported THRIVE Score: 0 AUDIT C Alcohol Use Questionnaire (AUDIT-C) 1. How often do you have a drink containing alcohol?: Never Total Score: 0 Score Reviewed/Action Taken: No MARÍA-7 AMB Questionnaire MARÍA-7 Date MARÍA - 7 assessed: 08/12/24 Feeling nervous, anxious, or on edge: 3 = Nearly every day Not being able to stop or control worryin = More than half the days Worrying too much about different things: 2 = More than half the days Trouble relaxin = Several days Being so restless that it is hard to sit still: 1 = Several days Becoming easily annoyed or irritable: 1 = Several days Feeling afraid as if something awful might happen: 1 = Several days Total MARÍA-7 score (0-4 normal; 5-9 mild; 10-14 moderate; 15-21 severe): 11 Source: Developed by Drs. Isiah Garcia, Maria Bullard, Jude Todd and colleagues, with an educational amara from [employer] ([employer]ja [employer]). MARÍA-7 Assessment Billing MARÍA-7 Assessment Tool: MARÍA-7 Assessment 78649 Review of Systems Const All systems reviewed & are unremarkable except as noted in HPI and below Card Denies chest pain at rest, Denies chest pain with activity, Denies edema, Denies irregular heart rhythm, Denies claudication, Denies dyspnea, Denies dyspnea on exertion, Denies orthopnea, Denies paroxysmal nocturnal dyspnea and Denies slow heart rate Resp Denies cough, Denies dyspnea and Denies dyspnea on exertion GI Denies abdominal pain, Denies change in bowel habits, Denies excessive flatus, Denies nausea and Denies vomiting Psych Reports depression Physical exam (Primary Care) Vital Signs: Last Vital Signs BP 136/70 08/12/24 17:21 BMI result Body Mass Index 31.9 BMI Assessment/Plan discussion: High BMI High, discussed plan: lifestyle, weight reduction, dietary and physical activity Tobacco/Smoking Status: Tobacco use Status Tobacco use date assessed 08/12/24 08/12/24 17:23 Patient Tobacco Use Status Current everyday Tobacco 08/12/24 17:14 Tobacco use type Cigarette 08/12/24 17:14 e-Cigarette/Vaping Use Never Used 08/12/24 17:14 Are you ready to quit: Yes Tobacco cessation counseling provided: Yes Items discussed: Nicotine replacement and QuitWorks Relapse Prevention: discussed the importance of a supportive environment, discussed negative mood or depression after quitting, weight gain after smoking is common and discussed dietary, exercise and/or lifestyle changes Number of minutes spent counselin CPT code: 79478 - 4-10 Minutes PHQ-9: PHQ-9 Score PHQ-9: Total score 15 08/13/24 07:34 Depression Screening Interpretation: Positive (no suicidal thoughts) Depression Screening Follow-up: Existing condition, New Medication prescribed, Community Mental Health Worker F/U and Follow-up Visit Requested Thrive Assessment: Date of Thrive Assessment Date Thrive assessed 08/12/24 08/12/24 17:16 Currently or been in a relationship where the following occur: No concerns reported Resp Effort & Inspection: normal respiratory effort Auscultation: clear to auscultation bilaterally Cardio Jugular venous distension: no JVD Rate: regular rate Rhythm: regular rhythm Heart sounds: S1 normal heart sound present and S2 normal heart sound present Extrem General: Yes full ROM Office Procedures Flu Questionnaire Does the patient have a severe egg allergy?: No Results AMB Hemoglobin A1c AMB Hemoglobin A1c 5.9 % Last Edit by CHRISTIANO Marley on 08/12/24 17:42 Immunizations Fluarix Triv [id number] (PF) 45 mcg (15 mcg x 3)/0.5 mL IM syringe Performing Provider: Amanda Raphael MD [facility] Documented (not given) by: CHRISTIANO Marley on 08/13/24 07:35 Reason Not Given: Patient Refused Results Reviewed Results Reviewed: Laboratory Last Values Hgb A1c (Clinic) 5.9 % (4.0-6.0) 08/12/24 17:41 Coding Level of Care Code Est Pt Level 4 (10906) Complex EM visit Add On G2211 Diagnoses Moderate major depression F32.1 MARÍA (generalized anxiety disorder) F41.1 Type 2 diabetes mellitus without complication, without long-term current use of insulin E11.9 Diabetes mellitus complication status: without complication Diabetes mellitus nursing home insulin use: without ferry terminal agent use Diabetes mellitus type: type 2 Dyslipidemia E78.5 Additional Codes MARÍA-7 Assessment Billing - MARÍA-7 Assessment Tool: MARÍA-7 Assessment 40249 ([id number]) PHQ-9 - 08470 - PHQ-9 Billing: Yes ([id number]) Vital Signs *Quality* - CPT code: 42681 - 4-10 Minutes ([id number]) Time Spent (min) 22 Assessment & Plan Assessment & Plan (1) Moderate major depression: Code(s): F32.1 - Major depressive disorder, single episode, moderate Category: Medical (2) MARÍA (generalized anxiety disorder): Code(s): F41.1 - Generalized anxiety disorder Category: Medical (3) Diabetes mellitus: Code(s): E11.9 - Type 2 diabetes mellitus without complications Category: Medical Qualifiers: Diabetes mellitus complication status: without complication Diabetes mellitus nursing home insulin use: without nursing home use Diabetes mellitus type: type 2 Qualified Code(s): E11.9 - Type 2 diabetes mellitus without complications (4) Dyslipidemia: Code(s): E78.5 - Hyperlipidemia, unspecified Category: Medical Plan - Initiate Bupropion therapy to assist with smoking cessation and manage depressive and anxiety symptoms. - Discuss bereavement support options to address emotional distress following parental loss. - Encourage regular follow-up appointments to monitor mental health and medication efficacy. Patient was informed and verbally consented to the use of an ambient scribe for clinic note documentation during this visit. Orders: Orders Lipid Panel 3 Months E78.5 - Hyperlipidemia, unspecified Comprehensive [place]. Panel Fast 3 Months E11.9 - Type 2 diabetes mellitus without complications AMB Hemoglobin A1c 08/12/24 E11.9 - Type 2 diabetes mellitus without complications ECG 12 lead EKG 08/12/24 Z01.818 - Encounter for other preprocedural examination Microalbumin, Random (w Creat) 3 Months R80.9 - Proteinuria, unspecified Vitamin D 25-OH Total 3 Months E55.9 - Vitamin D deficiency, unspecified Influenza 1448-1875 Immunization 08/12/24 Z23 - Encounter for immunization Medications: New bupropion HCl XL 150 mg PO QAM 90 tabs 1RF 90 days F32.1 - Major depressive disorder, single episode, moderate, F41.1 - Generalized anxiety disorder Patient Instructions: - Start taking Bupropion as prescribed daily in the morning. - Contact me if experiencing any adverse effects or changes in mood or behavior. - Consider seeking support for bereavement to help cope with recent losses. - Ensure follow-up appointments to evaluate the effectiveness of the medication and overall well-being. - Avoid alcohol while beginning new medication to prevent interactions.
[2024-08-12 17:21] VITALS: BP 136/70; BMI 31.9
== END 2024-08-12 18:01 | disposition home or self-care (01) ==
PROVIDERS: PCP Internal Medicine; Visit Provider Internal Medicine
DX: E11.9 Type 2 diabetes mellitus without complications (principal)

== ENCOUNTER → 2024-08-12 17:09 | Outpatient (BNVA) | payer OTHER, SELFPAY | PROVIDERS: PCP Internal Medicine; Visit Provider Internal Medicine | DX: E11.9 Type 2 diabetes mellitus without complications (principal); E78.5 Hyperlipidemia, unspecified; F17.210 Nicotine dependence, cigarettes, uncomplicated; F32.1 Major depressive disorder, single episode, moderate; F41.1 Generalized anxiety disorder; Z28.21 Immunization not carried out because of patient refusal; Z79.899 Other long term (current) drug therapy | CPT/HCPCS: 83036; 90471; 96127; 99212 ==

== ENCOUNTER → 2024-08-20 14:27 | Outpatient (BNVA) | payer OTHER, SELFPAY | PROVIDERS: PCP Internal Medicine; Visit Provider Advanced Practice Midwife ==

== ENCOUNTER 2024-09-20 10:50 | Outpatient (REF) | payer OTHER, SELFPAY ==
--- OUTSIDE RECORDS SUMMARY | 2024-09-20 11:54 | XMS_ITS | Encounter Summary ---
Author Organization [employer] [facility] Address [address] [place] [address] Care Team Providers Care Donor Processor Name Role Phone Unavailable Primary Care Provider Unavailabl e Reason for Visit * Reason Comments Dentures Encounter Details Date Type Department Care Team ([facility] st Contact Info) Description 08/23/2024 3:30 PM EST Office Visit [facility] ADULT DENTAL [address] [place] [address] Samuel Guaman DDS [address] [place] [address] Missing teeth, acquired (Primary Dx); Partially edentulous mandible, unspecified edentulism class Social History Tobacco Use Types Packs/Day Years Used Date Smoking Tobacco: Every Day Cigarettes Smokeless Tobacco: Never Alcohol Use Standard Drinks/Week Comments Not Currently 0 (1 standard drink = 0.6 oz pur e alcohol) Comments Unknown Sex and Gender Information Value Date Recorded Sex Assigned at Female 05/30/2022 10:16 AM EDT Legal Sex Female 10:16 AM EDT Gender Identity Female 05/30/2022 10:16 AM EDT Sexual Orientation Straight 05/30/2022 10 :16 AM EDT documented as of this encounter Last Filed Vital Signs Vital Sign Reading Time Taken Comments Blood Pressure 126/76 08/23/2024 3:17 PM EST Pulse - - Temperature - - Respiratory Rate - - Oxygen Saturation - - Inhaled Oxygen Concentration - - Weight - - Height - - Body Mass Index - - documented in this encounter Progress Notes * Samuel Guaman DDS - 08/23/2024 3:30 PM EST Patient ID: Sienna Cunningham is a 44 y.o. female. Time Out: Timeout Date: 08/23/24 (impression for a lower partial), Timeout Time: 1515 Location: [facility] Tooth: Maxilla and Mandible Tab. RPD Procedure: Dentures Verified the above with patient, business development assistant, and provider. Confirmed via patient's chart, intraorally and by radiographs. 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 Medications, Med Hx reviewed with patient and updated in chart. Consent Obtained: The risks, benefits, indications, potential complications, and alternatives were explained to the patient and informed consent was obtained with good understanding. Treatment Provided: Dental procedures in this visit D5750.1 - DENTURE IMPRESSION (Completed) Service provider: Samuel Guaman DDS Billing provider: Samuel Guaman DDS Impression taken with [place] of Maxilla and Mandible Case sent to lab to fabricate custom trays. Lab used: [facility] Lab Due Date: 08-30-23 Patient discharged alert, oriented, and in stable condition. NV: Bite reg Design Inserter: Chyna Santoro Dentist: Samuel Guaman DDS documented in this encounter Plan of Treatment Upcoming Encounters Date Type Department Care Team (Late st Contact Info) Description 09/23/2024 3:00 PM EST Office Visit [facility] ADULT DENTAL [address] [place] [address] Samuel Guaman DDS [address] [place] [address] 10/03/2024 3:00 PM EST Office Visit [facility] OPTOMETRY [address] [place] [address] Chanda Paredes, OD [address] [place] [address] 01/10/2025 10:00 AM EDT Office Visit [facility] ADULT DENT[facility] [address] [place] [address] Johana Campoverde [address] [place] [address] Scheduled Orders Name Type Priority Associated Diagnoses Orde r Schedule BITE REGISTRATION Dental Routine 1 Occur rences starting 08/23/2024 WAX TRY IN Dental Routine 1 Occurrences starting 08/23/2024 documented as of this encounter Procedures Procedure Name Priority Date/Time Associated Diagnosis Comments DENTURE IMPRESSION Routine 08/23/2024 3:30 PM EST documented in this encounter Visit Diagnoses Diagnosis Missing teeth, acquired- Primary Partially edentulous mandible, unspecified edentulism class documented in this encounter
--- OUTSIDE RECORDS SUMMARY | 2024-09-20 11:55 | XMS_ITS | Encounter Summary ---
Author Organization [facility] Address [address] 7t [place] [address] Care Team Providers Care Propeller Layout Worker Name Role Phone Chanda Paredes OD Primary Care Provider [phone] Encounter Details Date Type Department Care Team (Latest Contact Info) Description 02/01/2019 Abstract [facility] CONVERSIONS Dental, Provider, DDS Social History Tobacco Use Types Packs/Day Years Used Date Smoking Tobacco: Never Assessed Comments Unknown Sex and Gender Information Value Date Recorded Sex Assigned at Female 05/30/2022 10:16 AM EDT Legal Sex Female 10:16 AM EDT Gender Identity Female 05/30/2022 10:16 AM EDT Sexual Orientation Straight 05/30/2022 10 :16 AM EDT documented as of this encounter Plan of Treatment Upcoming Encounters Date Type Department Care Team (Late st Contact Info) Description 09/23/2024 3:00 PM EST Office Visit [facility] ADULT DENTAL [address] [place] [address] Samuel Guaman DDS [address] [place] [address] 10/03/2024 3:00 PM EST Office Visit [facility] OPTOMETRY [address] [place] [address] Chanda Paredes, OD [address] [place] [address] 01/10/2025 10:00 AM EDT Office Visit [facility] ADULT DENTAL [address] [place] [address] Johana Campoverde [address] [place] [address] documented as of this encounter Visit Diagnoses Not on filedocumented in this encounter Care Teams Propeller Layout Worker Relationship Specialty Start Date End Date Chanda Paredes OD [address] [place] [address] PCP - General Optometry 12/21/16 08/07/23 documented as of this encounter
--- OUTSIDE RECORDS SUMMARY | 2024-09-20 11:55 | XMS_ITS | Encounter Summary ---
Author Organization [facility] Address [address] [facility] 7t [place] [address] Care Team Providers Care Sail Repair Person Name Role Phone Chanda Paredes OD Primary Care Provider [phone] Encounter Details Date Type Department Care Team (Latest Contact Info) Description 11/05/2021 Abstract [facility] CONVERSIONS Dental, Provider, DDS Social History Tobacco [...] Description 09/23/2024 3:00 PM EST Office Visit [facility] ADULT DENTAL [address] [place] [address] Samuel Guaman, DDS [address] [place] [address] 10/03/2024 3:00 PM EST Office Visit [facility] OPTOMETRY [address] [place] [address] Chanda Paredes, OD [address] [place] [address] 01/10/2025 10:00 AM EDT Office Visit [facility] ADULT DENTAL [address] [place] [address] Johana Campoverde [address] [place] [address] documented as of this encounter Visit Diagnoses Not on filedocumented in this encounter Care Teams Sail Repair Person Relationship Specialty Start Date End Date Chanda Paredes OD [address] [place] [address] PCP - General Optometry 12/21/16 08/07/23 documented as of this encounter
--- OUTSIDE RECORDS SUMMARY | 2024-09-20 11:55 | XMS_ITS | Clinical Summary ---
Author Organization [facility] Facility Address [address] [place] [address] Care Team Providers Care Tableau Lead Name Role Phone Amanda Horna MD Primary Care Provider [phone] Allergies No known active allergies Medications Acetaminophen Extra Strength 500 MG tablet TAKE 1 TABLET (500 MG) BY MOUTH EVERY 6 HOURS NEEDED FOR PAIN OR FEVER 2 Active ProAir HFA 108 (90 Base) MCG/ACT inhaler INHALE 2 PUFFS EVERY 4 HOURS NEEDED FOR BRONCHOSPASM 2 Active atorvastatin (LIPITOR) 20 MG tablet Take 20 mg by mouth 1 (one) time each day 2 Active Flovent HFA 44 MCG/ACT inhaler 2 Active pioglitazone (ACTOS) 30 MG tablet Take 30 mg by mouth 1 (one) time each day 2 Active Active Problems Problem Noted Date Diagnosed Date Proteinuria 10/26/2021 Dyslipidemia 10/26/2021 MARÍA-7 (Generalized Anxiety Disorder 7) scale dec lined 10/26/2021 Essential (primary) hypertension 10/26/2021 Type 2 diabetes mellitus wit h diabetic chronic kidney disease 10/26/2021 Resolved Problems Problem Noted Date Diagnosed Date Resolved Date Diabetes mellitus 10/26/2021 10/26/2021 Chronic kidney disease 10/26/202110/26 Family History Medical History Relation Comments Diabetes Father Hypertension Father Kidney disease Father Diabetes Mother Relation Status Comments Father Mother Social History Tobacco Use Types Packs/Day Years Used Date Smoking Tobacco: Every Day Cigarettes Alcohol Use Standard Drinks/Week Comments Yes 0 (1 standard drink = 0.6 oz pur e alcohol) former Comments Unknown Sex and Gender Information Value Date Recorded Sex Assigned at Not on file Legal Sex Female 4:22 PM EDT Gender Identity Not on file Sexual Orientation Not on file Last Filed Vital Signs Vital Sign Reading Time Taken Comments Blood Pressure 126/65 12/13/2021 4:22 PM EDT Pulse 82 12/13/2021 4:22 PM EDT Temperature - - Respiratory Rate - - Oxygen Saturation 98% 12/13/2021 4:22 PM EDT Inhaled Oxygen Concentration - - Weight 101 kg (223 lb 6.4 oz) 12/13/2021 4:22 PM EDT Height - - Body Mass Index - - Plan of Treatment Health Maintenance Due Date Last Done Comments Pneumococcal Vaccine: Pediat rics (0 to 5 Years) and At-Risk Patients (6 to 64 Years) (1 of 2 - PCV) 1987 Hepatitis B Vaccine (1 of 3 - 19+ 3-dose series) 08/10 Diabetes: Hemoglobin A1C 10/26/2021 Diabetes: Ophthalmology Exam 10/26/2021 Diabetes: Pedal Pulse Checked 10/26/2021 Diabetes: Sensory Foot Exam 10/26/2021 Diabetes: Visual Foot Exam 10/26/2021 Influenza Vaccine (#1) 2024 Insurance [facility] MEDICAID Care Teams Tableau Lead Relationship Specialty Start Date End Date Amanda Horan MD [address] [place], [place] PCP - General Internal Medicine 10/25/21
--- OUTSIDE RECORDS SUMMARY | 2024-09-20 11:55 | XMS_ITS | Encounter Summary ---
Author Organization [facility] Address [address] [facility] 7[address] [place] [address] Care Team Providers Care Custodial Manager Name Role Phone Unavailable Primary Care Provider Unavailabl e Reason for Visit * Reason Onset Date Comments mandibular partial tx planned not requested 10/2024 Encounter Details Date Type Department Care Team ([facility] Contact Info) Description 08/03/2024 Refill [facility] ADULT DENTAL [address] [place] [address] Samuel Guaman, DDS [address] [place] [address] Dental abscess Social History Tobacco Use Types Packs/Day Years [...] AM EDT documented as of this encounter Miscellaneous Notes * Telephone Encounter - Julissa Diaz - 08/05/2024 9:20 AM EST Message for Dr. Guaman Patient is calling in to get appt for partial. It is treatment planned however not active requested. Patient is stating she is having difficulty eating because she has to eat on the opposite side andand doesn't have those molars either. For front end software developer pls reach out to patient for scheduling DR * Telephone Encounter - Ildefonso Encarnacion DMD - 08/05/2024 8:21 AM EST Please follow up with Dr. Guaman documented in this encounter Plan of Treatment Upcoming Encounters Date Type Department Care Team (Late st Contact Info) Description 09/23/2024 3:00 PM EST Office Visit [facility] ADULT DENTAL [address] [place] [address] Samuel Guaman, DDS [address] [place] [address] 10/03/2024 3:00 PM EST Office Visit [facility] OPTOMETRY [address] [place] [address] Chanda Paredes, OD [address] [place] [address] 01/10/2025 10:00 AM EDT Office Visit [facility] ADULT DENTAL [address] [place] [address] Johana Campoverde [address] [place] [address] documented as of this encounter Visit Diagnoses Diagnosis Dental abscess Periapical abscess without sinus documented in this encounter
--- OUTSIDE RECORDS SUMMARY | 2024-09-20 11:55 | XMS_ITS | Clinical Summary ---
Author Organization [facility] Address [address] [facility] 7[address] [place] [address] Care Team Providers Care Associate Media Director Name Role Phone Unavailable Primary Care Provider Unavailabl e Allergies No known active allergies Medications Ventolin HFA 108 (90 Base) MCG/ACT inhaler INHALE 2 PUFFS BY MOUTH EVERY 4 HOURS NEEDED FOR BRONCHOSPASMS 07/28/20 22 Active Trulicity 0.75 MG/0.5ML solution pen-injector INJECT 0.5MLS SUBCUTANEOUSLY ONCE WEEKLY 07/28/20 22 Active FREESTYLE LITE test strip USE TO TEST TWICE DAILY 07/06/20 22 Active FreeStyle lancets USE DIRECTED 07/29/20 22 Active Levonorgestrel (Mirena, 52 MG,) 20 MCG/DAY intrauterine device 10/26/19 22 Active pioglitazone (Actos) 45 MG tablet TAKE 1 TABLET BY MOUTH EVERY DAY FOR 90 DAYS 06/29/20 22 Active Ozempic, 1 MG/DOSE, 4 MG/3ML solution pen-injector 1 MG (0.75 ML) SUBCUTANEOUSLY EVERY WEEK FOR 30 DAYS 06/16/20 23 Active betamethasone, augmented, (Diprolene AF) 0.05 % cream APPLY TO AFFECTED AREA TOPICALLY EVERY DAY NEEDED FOR SKIN IRRITATION 06/28/20 23 Active atorvastatin (Lipitor) 40 MG tablet Take 40 mg by mouth at bedtime. 06/30/20 23 Active acetaminophen (Tylenol) 500 MG tabletIndication s:Dental abscess Take 1 tablet (500 mg) by mouth every 6 (six) hours if needed for mild pain for up to 20 doses. 20 tablet 07/10/20 24 Active ibuprofen 600 MG tabletIndication s:Dental abscess Take 1 tablet (600 mg) by mouth every 6 (six) hours if needed for mild pain for up to 20 doses. 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 10/26/2021 Asthma 01/18/2012 Depressive disorder 01/18/2012 Encounters Date Type Department Care Team Description 08/23/2024 3:30 PM EST Office Visit [facility] ADULT DENTAL [address] [place] [address] Samuel Guaman DDS Missing teeth, acquired (Primary Dx); Partially edentulous mandible, unspecified edentulism class 08/03/2024 Refill [facility] ADULT DENTAL [address] [place] [address] Samuel Guaman DDS Dental abscess 07/30/2024 10:30 AM EST Office Visit [facility] ADULT DENTAL [address] [place] [address] Samuel Guaman DDS Dental abscess (Primary Dx) 07/23/2024 12:30 PM EST Office Visit [facility] ADULT DENTAL [address] [place] [address] April Wray 07/10/2024 3:00 PM EST Office Visit [facility] ADULT DENTAL [address] [place] [address] Johana Campoverde Dental abscess (Primary Dx); Missing teeth, acquired; Dental plaque; Lateral periodontal abscess from Last 3 Months Family History Medical History Relation Name Comments Diabetes Other Hypertension Other Relation Name Status Comments Other Social History Tobacco Use Types Packs/Day Years Used Date Smoking Tobacco: Every Day Cigarettes Smokeless Tobacco: Never Tobacco Cessation:Ready to Q uit: Not Asked; Counseling Given: Not Answered Alcohol Use Standard Drinks/Week Comments Not Currently 0 (1 standard drink = 0.6 oz pur e alcohol) Comments Unknown Sex and Gender Information Value Date Recorded Sex Assigned at Female 05/30/2022 10:16 AM EDT Legal Sex Female 10:16 AM EDT Gender Identity Female 05/30/2022 10:16 AM EDT Sexual Orientation Straight 05/30/2022 10 :16 AM EDT Last Filed Vital Signs Vital Sign Reading Time Taken Comments Blood Pressure 126/76 08/23/2024 3:17 PM EST Pulse 100 12/21/2023 2:49 PM EDT Temperature - - Respiratory Rate - - Oxygen Saturation - - Inhaled Oxygen Concentration - - Weight - - Height - - Body Mass Index - - Plan of Treatment Upcoming Encounters Date Type Department Care Team (Late st Contact Info) Description 09/23/2024 3:00 PM EST Office Visit [facility] ADULT DENTAL [address] [place] [address] Samuel Guaman, DDS [address] [place] [address] 10/03/2024 3:00 PM EST Office Visit [facility] OPTOMETRY [address] [place] [address] Reggie, Chanda, OD [address] [place] [address] 01/10/2025 10:00 AM EDT Office Visit [facility] ADULT DENTAL [address] [place] [address] Gilles, Johana [address] [place] [address] Health Maintenance Due Date Last Done Comments Depression Screening 1981 Diabetes: Hemoglobin A1C 1981 HIV Screening 1981 Lipid Panel 1981 SDOH Screening 1981 Diabetes: Foot Exam 1991 Alcohol/Substance Use Screening 1993 Family Planning (PISQ) 1996 Hepatitis C Screening 1999 Hepatitis B Vaccines (1 of 3 - 19+ 3-dose series) 2000 Pneumococcal Vaccine: Pediatrics (0 to 5 Years) and At-Risk Patients (6 to 49) Years) (1 of 2 - PCV) 2000 Pap Smear 2002 Cervical Cancer Screening 2011 HPV/Cotest 2011 Mammogram 2021 COVID-19 Vaccine ( season) 2024 02/09/2021, 01/19/2021 Influenza Vaccine (#1) 2024 , 05/18/2022, 05/10/2021, Additional history exists Dental X-Ray: Full Mouth 11/06/2024 11/05/2021, 11/07/2016 Dental Oral Exam 01/09/2025 07/10/2024, 12/2022, 11/05/2021, Additional history exists Dental Prophylaxis 01/09/2025 07/10/2024, 0 12/21/2023, 06/05/2023, Additional history exists Dental X-Ray: Bitewings 07/24/2025 07/23/20, 07/10/2024, 06/18/2024, Additional history exists Tobacco Screening 08/23/2025 08/23/2024 Eye Exam 08/28/2025 08/28/2023, 08/01, 08/28/2023, Additional history exists DTaP/Tdap/Td Vaccines (2 - Td or Tdap) 08/29/2026 08/29/2016, 10/10/2008 Zoster Vaccines (1 of 2) 2031 RSV Patients and Patients Aged 60 years or older (1 - 1-dose 75+ series) 2056 HIB Vaccines Aged Out No longer eligi ble based on patient's age to complete this topic HPV Vaccines Aged Out No longer eligi ble based on patient's age to complete this topic Hepatitis A Vaccines Aged Out No long er eligible based on patient's age to complete this topic IPV Vaccines Aged Out No longer eligi ble based on patient's age to complete this topic Meningococcal Vaccine Aged Out No tabatha michael eligible based on patient's age to complete this topic RSV under 20 months Aged Out No longe r eligible based on patient's age to complete this topic Rotavirus Vaccines Aged Out No longer eligible based on patient's age to complete this topic Procedures Procedure Name Priority Date/Time Associated Diagnosis Comments DENTURE IMPRESSION Routine 08/23/2024 3: 30 PM EST CASE PRESENTATION, DETAILED AND EXTENSIVE TREATMENT PLANNING Routine 07/30/2024 10:30 AM EST 30 EXTRACTION, ERUPTED TOOTH REQ REMOVAL OF BONE AND/OR SECTIONING OF TOOTH Routine 07/30/2024 10:30 AM EST CASE PRESENTATION, DETAILED AND EXTENSIVE TREATMENT PLANNING Routine 07/23/2024 12:30 PM EST INTRAORAL - PERIAPICAL FIRST RADIOGRAPHIC IMAGE Routine 07/23/2024 12:30 PM EST BITEWING - SINGLE RADIOGRAPHIC IMAGE Routine 07/23/2024 12:30 PM EST 30 PALLIATIVE (EMERGENCY) TREATMENT OF DENTAL PAIN - MINOR PROCEDURE Routine 07/23/2024 12:30 PM EST PERIODIC ORAL EVALUATION - ESTABLISHED PATIENT Routine 07/10/2024 3:00 PM EST CASE PRESENTATION, DETAILED AND EXTENSIVE TREATMENT PLANNING Routine 07/10/2024 3:00 PM EST INTRAORAL - PERIAPICAL EACH ADDITIONAL RADIOGRAPHIC IMAGE Routine 07/10/2024 3:00 PM EST Dental abscess Missing teeth, acquired Dental plaque Full PROPHYLAXIS - ADULT Routine 024 3:00 PM EST Dental abscess Missing teeth, acquired Dental plaque ORAL HYGIENE INSTRUCTIONS Routine 07/10/2024 3:00 PM EST Dental abscess Missing teeth, acquired Dental plaque INTRAORAL - PERIAPICAL EACH ADDITIONAL RADIOGRAPHIC IMAGE Routine 07/10/2024 3:00 PM EST Dental abscess Missing teeth, acquired Dental plaque INTRAORAL - PERIAPICAL FIRST RADIOGRAPHIC IMAGE Routine 07/10/2024 3:00 PM EST Dental abscess Missing teeth, acquired Dental plaque BITEWINGS - 4 RADIOGRAPHIC IMAGES Routine 07/10/2024 3:00 PM EST Dental abscess Missing teeth, acquired Dental plaque INTRAORAL - COMPLETE SERIES OF RADIOGRAPHIC IMAGES Routine 11/05/2021 12:00 AM EDT from Last 3 Months or Most Recently Relevant to Health Maintenance [place] [address] [place] [address] [place] [address] [facility] STAND ADULT
== END 2024-09-20 10:51 | disposition home or self-care (01) ==
LOC: HO.MAMMO 10:50
PROVIDERS: PCP Internal Medicine; Visit Provider Internal Medicine
DX: Z12.31 Encounter for screening mammogram for malignant neoplasm of breast (principal)
CPT/HCPCS: 77063; 77067

== ENCOUNTER → 2024-09-20 11:00 | Outpatient (BNV) | payer OTHER, SELFPAY | PROVIDERS: PCP Internal Medicine; Visit Provider Internal Medicine | DX: Z12.31 Encounter for screening mammogram for malignant neoplasm of breast (principal) | CPT/HCPCS: 77063; 77067 ==

== ENCOUNTER 2024-10-07 14:38 | Outpatient (AMB) | payer OTHER, SELFPAY ==
[2024-10-07 14:47] VITALS: BP 138/72; BMI 31.9
--- NOTE | 2024-10-07 14:47 | A.OFFVIS_ITS ---
Vital Signs 10/07/24 14:47 Height 5 ft 7.5 in Weight 207 lb BMI 31.9 BP 138/72 Intake Visit Reasons: test Veterinary Parasitologist Required: No Information Interpreted: non-clinical & clinical Accompanied by: Self / Same As Patient Allergies nicotine Allergy (Intermediate, Verified 10/07/24 14:49) Rash metformin Adverse Reaction (Intermediate, Verified 10/07/24 14:49) stomach upset, diarrhea Medication List - Last Reconciled 10/07/24 by Mia Hylton CNM acetaminophen (Tylenol Extra Strength) 500 mg PO Q6H PRN 30 days albuterol sulfate 2.5 mg (3 mL) inhalation Q6H PRN 30 days atorvastatin 40 mg PO BEDTIME 90 days betamethasone, augmented 0.05 % 1 appl topical DAILY PRN 30 days blood sugar diagnostic (FreeStyle Lite Strips) 1 strip miscellaneous BID 90 days blood-glucose meter (FreeStyle Lite Meter kit) As directed bupropion HCl XL 150 mg PO QAM 90 days cyclobenzaprine 10 mg PO TID PRN ibuprofen 800 mg PO Q8H PRN lancets As directed nicotine 1 patch transdermal DAILY 28 days semaglutide (Ozempic) 2 mg (0.75 mL) subcut QWEEK 30 days sennosides (Senna Lax) 8.6 mg PO BEDTIME PRN 90 days umeclidinium-vilanterol 62.5-25 mcg/actuation (Anoro Ellipta) 1 inh inhalation DAILY 60 days Ventolin HFA 90 mcg/actuation (albuterol sulfate) 2 puffs inhalation Q6H PRN 30 days NS Is last menstrual period known: Yes Last menstrual period: 08/23/24 HPI HPI test : Details: Patient is here for test her LMP was 08/23/2019 5 and she is late with her period. She is sexually active and has been for few months. She had a Mirena in the past which she did not talk about but it was removed she told the medical billing manager in the fall. She said she was getting regular periods but this ones late and she was trying to look up reasons why it might be late she would like to be . She did tests at home and they are negative. She is diabetic she is now on Ozempic which is managing her blood sugars very well and she is off the insulin now and her hemoglobin A1c is much improved and she is feeling much better and she has lost a about 40 lb she says she has been on the Ozempic a couple of years. She would be very happy if she was because she is in a good relationship now and she would like to have a baby. [facility] Medical History MARÍA (generalized anxiety disorder) Right knee pain Microalbuminuria Heel spur Right elbow pain Hand numbness Mild asthma Dyslipidemia Diabetes mellitus Surgical History History of repair of rotator cuff Family History Father Diabetes Hypertension Kidney disease Mother Diabetes Fibromyalgia Brother No problems noted. Paternal Grandmother Stroke Social History Housing: Apartment Alcohol intake: former Patient Tobacco Use Status: Current everyday Tobacco user Tobacco use type: Cigarette Cigarettes Per Day: 8 e-Cigarette/Vaping Use: Never Used Second Hand Smoke Exposure: No service: No Current occupational status: employed Current occupational exposures/hazards: No Cognitive needs: No Hearing needs: No Vision needs: Yes (Glasses) Female Reproductive History Menstrual Age of Menarche: 13 Date of last menstrual period: 08/23/24 Physical Exam Vital Signs: Last Vital Signs BP 138/72 10/07/24 14:47 BMI result Body Mass Index 31.9 Results AMB Test Urine AMB Test Urine Negative Last Edit by Diane Momin CMA on 14:52 Results Reviewed Results Reviewed: Laboratory Last Values Tst Clinic Negative 10/07/24 14:51 Assessment & Plan Assessment & Plan (1) Amenorrhea, secondary: Code(s): N91.1 - Secondary amenorrhea Category: Medical (2) Patient desires : Code(s): Z31.9 - Encounter for procreative management, unspecified Category: Medical (3) Diabetes mellitus: Code(s): E11.9 - Type 2 diabetes mellitus without complications Category: Medical Qualifiers: Diabetes mellitus complication status: without complication Diabetes mellitus jail insulin use: without termite control representative use Diabetes mellitus type: type 2 Qualified Code(s): E11.9 - Type 2 diabetes mellitus without complications Plan Discussed the possible reasons and she had already look them up why she could be missing her period or could be late. Discussed the risks of in the face of diabetes and her age. Discussed that she would be a high-risk . Discussed that if she did get she should go to [facility] for all of her care from the very start and that the start of the would be very crucial to make sure that she was being managed appropriately for diabetes and her age and the . Discussed that she should check with her doctor about the different medication she is on and whether not as advised. In the meantime since the test is negative if she wants to see if she can get a period I recommend that she use condoms for protection for 100% in the next couple of weeks repeat the test and if it is still negative then she can take Provera to see if it will prompt a withdrawal bleed/ period. She is agreeable with this plan she may get her period on its own in the meantime. Congratulated on her weight loss and improved health vis-a-vis her diabetes. Orders: Orders AMB HCG Urine Test Today Z32.02 - Encounter for test, result negative Medications: New medroxyprogesterone (Provera) 10 mg PO DAILY 10 tabs 0RF Coding Level of Care Code Est Pt Level 3 (32043) Diagnoses Amenorrhea, secondary N91.1 Patient desires Z31.9 Type 2 diabetes mellitus without complication, without long-term current use of insulin E11.9 Diabetes mellitus complication status: without complication Diabetes mellitus termite control representative insulin use: without termite control representative use Diabetes mellitus type: type 2
--- OUTSIDE RECORDS SUMMARY | 2024-10-07 16:45 | XMS_ITS | Clinical Summary ---
Author Organization [facility] Facility Address [address] [place] [address] Care Team Providers Care Government Operations Consultant Name Role Phone Amanda Horan MD Primary Care Provider [phone] Allergies No known active allergies Medications Acetaminophen [...] Exam 10/26/2021 Influenza Vaccine (#1) 2024 Insurance [facility] MEDICAID Care Teams Government Operations Consultant Relationship Specialty Start Date End Date Amanda Horan MD [address] [place], [place] PCP - General Internal Medicine 10/25/21
== END 2024-10-07 15:46 | disposition home or self-care (01) ==
LOC: HO.HWS 14:38
PROVIDERS: PCP Internal Medicine; Visit Provider Advanced Practice Midwife
DX: N91.1 Secondary amenorrhea (principal); Z31.9 Encounter for procreative management, unspecified; E11.9 Type 2 diabetes mellitus without complications; Z32.02 Encounter for pregnancy test, result negative
CPT/HCPCS: 99213

== ENCOUNTER → 2024-10-07 14:38 | Outpatient (BNVA) | payer OTHER, SELFPAY | PROVIDERS: PCP Internal Medicine; Visit Provider Advanced Practice Midwife | DX: N91.1 Secondary amenorrhea (principal); E11.9 Type 2 diabetes mellitus without complications; Z79.899 Other long term (current) drug therapy | CPT/HCPCS: 81025; 99212 ==

== ENCOUNTER 2024-10-10 13:39 | Outpatient (AMB) | payer OTHER, SELFPAY ==
--- NOTE | 2024-10-10 13:46 | A.OFFVIS_ITS ---
Vital Signs 10/10/24 13:59 Height 5 ft 7 in Weight 207 lb BMI 32.4 Intake Visit Reasons: Preop LT RTC 10/16/24 NE Intake Note: Sienna is a 44 year old right hand dominants female who presents today for a pre op appointment for her left shoulder rotator cuff repair 10/16/24 NE. No problems with anaesthesia. Allergies nicotine Allergy (Intermediate, Verified 10/10/24 13:58) Rash metformin Adverse Reaction (Intermediate, Verified 10/10/24 13:58) stomach upset, diarrhea HPI HPI Preop LT RTC 10/16/24 NE: Details: Ms. Cunningham is a 44-year-old right-hand dominant female who presents to office today for her preoperative history and physical prior to a left shoulder rotator cuff repair to be performed on 10/16/[address] Baker. [facility] Medical History MARÍA (generalized anxiety disorder) Right knee pain Microalbuminuria Heel spur Right elbow pain Hand numbness Mild asthma Dyslipidemia Diabetes mellitus Surgical History History of repair of rotator cuff Family History Father Diabetes Hypertension Kidney disease Mother Diabetes Fibromyalgia Brother No problems noted. Paternal Grandmother Stroke Social History Housing: Apartment Alcohol intake: former Patient Tobacco Use Status: Current everyday Tobacco user Tobacco use type: Cigarette Cigarettes Per Day: 8 e-Cigarette/Vaping Use: Never Used Second Hand Smoke Exposure: No service: No Current occupational status: employed Current occupational exposures/hazards: No Cognitive needs: No Hearing needs: No Vision needs: Yes (Glasses) Female Reproductive History Menstrual Age of Menarche: 13 Review of Systems Const All systems reviewed & are unremarkable except as noted in HPI and below Physical Exam Vital Signs: BMI result Body Mass Index 32.4 Const General: cooperative, healthy appearing, comfortable, no acute distress, well developed, alert and awake Orientation/consciousness: patient oriented x3 HEENT Head: Yes normal to inspection, Yes normocephalic and Yes atraumatic Eyes General: appearance normal, both eyes and all related structures Neck Neck: Yes normal visual inspection and Yes no lymphadenopathy Resp Effort & Inspection: normal respiratory effort and able to speak in complete sentences Cardio Rate: regular rate Peripheral pulses: Peripheral pulses 2+ throughout GI Inspection: Yes normal to inspection Palpation (GI): Soft to palpation Skin General skin exam: no rashes or lesions noted Neuro General: patient oriented x3 Extrem Other: 4/5 empty can Negative lift-off Full passive range of motion Active abduction To 90 with pain negative lift-off Equivocal Limon and Neer Psych Mental Status: mental status grossly normal Assessment & Plan Assessment & Plan (1) Rotator cuff tear, left: Code(s): M75.102 - Unspecified rotator cuff tear or rupture of left shoulder, not specified as traumatic Category: Medical (2) Dysfunction of left rotator cuff: Code(s): M67.912 - Unspecified disorder of synovium and tendon, left shoulder Category: Medical Plan Mr. Malone is a 28-year-old right-hand dominant male who presents to the office today for follow-up of right shoulder pain. 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 He felt immediate pain in his shoulder. At his last appointment on 08/29/2024 I recommended attending physical therapy in which he has begun doing this and has noticed a slight improvement in pain and range of motion but continues to have difficulties. I discussed in detail the procedure and what to expect pre and post operatively. We discussed the risks, benefits and alternatives to the surgery as well as the rehabilitation course. The risks; which include, but are not limited to infection, bleeding, nerve injury, ongoing pain, swelling, and stiffness, perioperative risk of injury to bones and soft tissues, and blood clots. The patient was fit for a sling off the shelf while in the office today. This will be brought to the operating room on the day of surgery. Post operative medications were sent to the pharmacy, Percocet as well as MS Manzano,?while in the office today. The patient was instructed that?she?should obtain the prescription prior to surgery but should not consume until after the procedure; as these should only be taken for postoperative pain management. Should the patient take these medications before surgery, a refill will not be s ent to the pharmacy until their scheduled refill date.?? Oxycodone-acetaminophen 5-325 mg (Percocet) PO Q4-6H PRN, quantity 42 tabs for 7 days and morphine ER 15 mg (MS Contin) PO Q12H PRN, quantity 6 tabs for 3 days? I?ve answered all questions and with their understanding they have consented to move forward with left shoulder rotator cuff repair with Dr. Baker. Orders: Orders PT Evaluation and Treatment Today M75.102 - Unspecified rotator cuff tear or rupture of left shoulder, not specified as traumatic, Z98.890 - Other specified postprocedural states Medications: New morphine ER (MS Contin) Partial Fill upon patient request. 15 mg PO Q12H 6 tabs 0RF 3 days oxycodone-acetaminophen 5-325 mg Partial Fill upon patient request. 1 tab PO Q4-6H PRN 42 tabs 0RF pain 7 days Coding Level of Care Code Global (90817) Diagnoses Rotator cuff tear, left M75.102 Dysfunction of left rotator cuff M67.912
[2024-10-10 13:59] VITALS: BMI 32.4
--- OUTSIDE RECORDS SUMMARY | 2024-10-10 17:15 | XMS_ITS | Encounter Summary ---
Author Organization [employer] [facility] Address [address] 7t [place] [address] Care Team Providers Care Ui Ux Engineer Name Role Phone Chanda Paredes OD Primary Care Provider [phone] Encounter Details Date Type Department Care Team (Latest Contact Info) Description 02/01/2019 Abstract [facility] CONVERSIONS Dental, Provider, DDS Social History Tobacco [...] Care Team (Late st Contact Info) Description 10/21/2024 3:30 PM EDT Office Visit [facility] ADULT DENTAL [address] [place] [address] Samuel Guaman DDS [address] [place] [address] 01/10/2025 10:00 AM EDT Office Visit [facility] ADULT DENTAL [address] [place] [address] Jhoana Campoverde [address] [place] [address] documented as of this encounter Visit Diagnoses Not on filedocumented in this encounter Care Teams Ui Ux Engineer Relationship Specialty Start Date End Date Chanda Paredes OD [address] [place] [address] PCP - General Optometry 12/21/16 08/07/23 documented as of this encounter
--- OUTSIDE RECORDS SUMMARY | 2024-10-10 17:15 | XMS_ITS | Clinical Summary ---
Author Organization [facility] Address [address] [place] [address] Care Team Providers Care Cuff Knitter Name Role Phone Amanda Horan MD Primary Care Provider [phone] Allergies No known active allergies Medications Acetaminophen [...] Exam 10/26/2021 Influenza Vaccine (#1) 2024 Insurance [facility] MEDICAID Care Teams Cuff Knitter Relationship Specialty Start Date End Date Amanda Horan MD [address] [place], [place] PCP - General Internal Medicine 10/25/21
--- OUTSIDE RECORDS SUMMARY | 2024-10-10 17:15 | XMS_ITS | Encounter Summary ---
Author Organization [email or web address] [facility] Address [address] [facility] [facility] 7t [place] [address] Care Team Providers Care Press Box Custodian Name Role Phone Unavailable Primary Care Provider Unavailabl e Reason for Visit * Reason Onset Date Comments mandibular partial tx planned not requested 10/2024 Encounter Details Date Type Department Care Team ([facility] Contact Info) Description 08/03/2024 Refill [facility] ADULT DENTAL [address] [place] [address] Samuel Guaman, DDS [address] [place] [address] Dental abscess Social History Tobacco Use Types [...] have those molars either. For front end mechanic pls reach out to patient for scheduling DR * Telephone Encounter - Ildefonso Encarnacion DMD - 08/05/2024 8:21 AM EST Please follow up with Dr. Guaman documented in this encounter Plan of Treatment Upcoming Encounters Date Type Department Care Team (Late st Contact Info) Description 10/21/2024 3:30 PM EDT Office Visit [facility] ADULT DENTAL [address] [place] [address] Samuel Guaman DDS [address] [place] [address] 01/10/2025 10:00 AM EDT Office Visit [facility] ADULT DENTAL [address] [place] [address] Johana Campoverde [address] [place] [address] documented as of this encounter Visit Diagnoses Diagnosis Dental abscess Periapical abscess without sinus documented in this encounter
--- OUTSIDE RECORDS SUMMARY | 2024-10-10 17:15 | XMS_ITS | Clinical Summary ---
Author Organization [email or web address] Address [address] [facility] [address] [address] 7t [place] [address] Care Team Providers Care Exceptional Children Teacher Name Role Phone Unavailable Primary Care Provider [...] mandible 08/23/2024 Dental plaque 07/10/2024 Fractured dental holiness with loss of materi al 07/06/2023 Dental calculus 06/05/2023 Dental abscess 06/05/2023 Missing teeth, acquired 06/05/2023 Dyslipidemia 10/26/2021 Type 2 diabetes mellitus wit h diabetic chronic kidney disease 10/26/2021 Asthma 01/18/2012 Depressive disorder 01/18/2012 Encounters Date Type Department Care Team Description 10/03/2024 3:00 PM EST Office Visit [facility] OPTOMETRY [address] [place] [address] Reggie, Chanda, OD Diabetes type 2, no ocular involvement (CMS/HCC) (Primary Dx); White without pressure of peripheral retina of left eye; Myopia of both eyes 10/03/2024 Travel 09/23/2024 3:00 PM EST Office Visit [facility] ADULT DENTAL [address] [place] [address] Samuel Guaman DDS Partially edentulous mandible, unspecified edentulism class (Primary Dx) 08/23/2024 3:30 PM EST Office Visit [facility] ADULT DENTAL [address] [place] [address] Samuel Guaman DDS Missing teeth, acquired (Primary Dx); Partially edentulous mandible, unspecified edentulism class 08/03/2024 Refill [facility] ADULT DENTAL [address] [place] [address] Samuel Guaman DDS Dental abscess 07/30/2024 10:30 AM EST Office Visit [facility] ADULT DENTAL [address] [place] [address] Samuel Guaman DDS Dental abscess (Primary Dx) 07/23/2024 12:30 PM EST Office Visit [facility] ADULT DENTAL [address] [place] [address] April Wray from Last 3 Months Family History Medical [...] Sign Reading Time Taken Comments Blood Pressure 128/76 09/23/2024 3:14 PM EST Pulse 100 12/21/2023 2:49 PM EDT Temperature - - Respiratory Rate - - Oxygen Saturation - - Inhaled Oxygen Concentration - - Weight - - Height - - Body Mass Index - - Plan of Treatment Upcoming Encounters Date Type Department Care Team (Late st Contact Info) Description 10/21/2024 3:30 PM EDT Office Visit [facility] ADULT DENTAL [address] [place] [address] Samuel Guaman DDS [address] [place] [address] 01/10/2025 10:00 AM EDT Office Visit [facility] ADULT DENTAL [address] [place] [address] Johana Campoverde [address] [place] [address] Health Maintenance Due Date Last Done Comments [...] exists Dental X-Ray: Full Mouth 11/06/2024 11/05/2021, 07/2016 Dental Oral Exam 01/09/2025 07/10/2024, 12/2022, 11/05/2021, Additional history exists Dental Prophylaxis 01/09/2025 07/10/2024, 0 12/21/2023, 06/05/2023, Additional history exists Dental X-Ray: Bitewings 07/24/2025 07/23/20, 07/10/2024, 06/18/2024, Additional history exists Tobacco Screening 10/03/2025 10/03/2024 DTaP/Tdap/Td Vaccines (2 - Td or Tdap) 08/29/2026 08/29/2016, 10/10/2008 Eye Exam 10/03/2026 10/03/2024, 12/2024, 10/03/2024, Additional history exists Zoster Vaccines (1 of 2) 2031 RSV [...] Procedure Name Priority Date/Time Associated Diagnosis Comments BITE REGISTRATION Routine 09/23/2024 3:0 0 PM EST DENTURE IMPRESSION Routine 08/23/2024 3: 30 PM [...] MINOR PROCEDURE Routine 07/23/2024 12:30 PM EST Full PROPHYLAXIS - ADULT Routine 024 3:00 PM EST Dental abscess Missing teeth, acquired Dental plaque PERIODIC ORAL EVALUATION - ESTABLISHED PATIENT Routine 07/10/2024 3:00 PM EST INTRAORAL - COMPLETE SERIES OF RADIOGRAPHIC IMAGES Routine 11/05/2021 12:00 AM EDT from Last 3 Months or Most Recently Relevant to Health Maintenance Insurance [facility] STAND ADULT
--- OUTSIDE RECORDS SUMMARY | 2024-10-10 17:15 | XMS_ITS | Encounter Summary ---
Author Organization [employer] [facility] Address [address] [facility] 7t [place] [address] Care Team Providers Care General Inspector Name Role Phone Unavailable Primary Care Provider Unavailabl e Encounter Details Date Type Department Care Team (Latest Contact Info) Description 10/03/2024 Travel Social History Tobacco Use Types Packs/Day Years [...] Description 10/21/2024 3:30 PM EDT Office Visit [facility] ADULT DENTAL [address] [place] [address] Samuel Guaman DDS [address] [place] [address] 01/10/2025 10:00 AM EDT Office Visit [facility] ADULT DENTAL [address] [place] [address] Johana Campoverde [address] [place] [address] documented as of this encounter Visit Diagnoses Not on filedocumented in this encounter
--- OUTSIDE RECORDS SUMMARY | 2024-10-10 17:15 | XMS_ITS | Encounter Summary ---
Author Organization [facility] Address [address] [facility] [address] [facility] 7t [place] [address] Care Team Providers Care Syrup Mixer Helper Name Role Phone Unavailable Primary Care Provider Unavailabl e Reason for Visit * Reason Comments Diabetic Eye Exam Encounter Details Date Type Department Care Team (Late Contact Info) Description 10/03/2024 3:00 PM EST Office Visit [facility] OPTOMETRY [address] [place] [address] Reggie, Chanda, OD [address] [place] [address] Diabetes type 2, no ocular involvement (CMS/HCC) (Primary Dx); White without pressure of peripheral retina of left eye; Myopia of both eyes Social History Tobacco Use Types Packs/Day Years [...] Encounters Date Type Department Care Team (Late Contact Info) Description 10/21/2024 3:30 PM EDT Office Visit [facility] ADULT DENTAL [address] [place] [address] Samuel Guaman, JENNIFERS [address] [place] [address] 01/10/2025 10:00 AM EDT Office Visit [facility] ADULT DENTAL [address] [place] [address] Christofer Campoverdearis [address] [place] [address] documented as of this encounter Visit Diagnoses Diagnosis Diabetes type 2, no ocular involvement (CMS/HCC)- Primary White without pressure of peripheral retina of left eye Myopia of both eyes documented in this encounter
--- OUTSIDE RECORDS SUMMARY | 2024-10-10 17:15 | XMS_ITS | Encounter Summary ---
Author Organization [email or web address] [facility] Address [address] [place] [address] 7 [place] [address] Care Team Providers Care Jet Engine Mechanic Name Role Phone Unavailable Primary Care Provider Unavailabl e Reason for Visit * Reason Comments Dentures Encounter Details Date Type Department Care Team ([facility] st Contact Info) Description 09/23/2024 3:00 PM EST Office Visit [facility] ADULT DENTAL [address] [place] [address] Samuel Guaman DDS [address] [place] [address] Partially edentulous mandible, unspecified edentulism class (Primary Dx) Social History Tobacco Use Types Packs/Day Years [...] Pressure 128/76 09/23/2024 3:14 PM EST Pulse - - Temperature - - Respiratory Rate - - Oxygen Saturation - - Inhaled Oxygen Concentration - - Weight - - Height - - Body Mass Index - - documented in this encounter Progress Notes * Samuel Guaman DDS - 09/23/2024 3:00 PM EST Patient ID: Sienna Cunningham is a 44 y.o. female. Time Out: Timeout Date: 09/23/24, Timeout Time: 1515 (Bite reg) Location: [facility] Tooth: Mandible Procedure: Dentures Verified the above with patient, surgical dental assistant, and provider. Confirmed via patient's chart, intraorally and by radiographs. Reclamation Furnace Operator: not applicable Chief Complaint Patient presents with Dentures Medical Hx: Vitals: Blood pressure 128/76. Medications, Med Hx reviewed with patient and updated in chart. Consent Obtained: The risks, benefits, indications, potential complications, and alternatives were explained to the patient and informed consent was obtained with good understanding. Treatment Provided: Dental procedures in this visit [id number] - BITE REGISTRATION (Completed) Service provider: Samuel Guaman DDS Billing provider: Samuel Guaman DDS Occlusal Wax rims tried in & records taken: -Vertical Dimension -Midline -Interpupillary line -Occlusal Relationship -Smile Line -Canine [place] Bite Registration taken with: Wax Tooth Selection: Mould: Shade: A 1 Size: Sent to Lab for tooth set up in wax Lab used: [facility] Lab Due Date: 10-01-24 Patient discharged alert, oriented, and in stable condition. NV: Sheep And Wheat Farmer: Chyna Lisa Dentist: Samuel Guaman DDS documented in this encounter Plan of Treatment Upcoming Encounters Date Type Department Care Team (Late st Contact Info) Description 10/21/2024 3:30 PM EDT Office Visit [facility] ADULT DENTAL [address] [place] [address] Samuel Guaman DDS [address] [place] [address] 01/10/2025 10:00 AM EDT Office Visit [facility] ADULT DENTAL [address] [place] [address] Johana Campoverde [address] [place] [address] documented as of this encounter Procedures Procedure Name Priority Date/Time Associated Diagnosis Comments BITE REGISTRATION Routine 09/23/2024 3:00 PM EST documented in this encounter Visit Diagnoses Diagnosis Partially edentulous mandible, unspecified edentulism class- Primary documented in this encounter
--- OUTSIDE RECORDS SUMMARY | 2024-10-10 17:15 | XMS_ITS | Encounter Summary ---
Author Organization [employer] [facility] Address [address] [facility] [facility] 7t [place] [address] Care Team Providers Care Chief Marketing Officer Name Role Phone Chanda Paredes OD Primary Care Provider [phone] Encounter Details Date Type Department Care Team (Latest Contact Info) Description 11/05/2021 Abstract [facility] CONVERSIONS Dental, Provider, DDS Social History Tobacco [...] Description 10/21/2024 3:30 PM EDT Office Visit [facility] ADULT DENTAL [address] [place] [address] Samuel Guaman DDS [address] [place] [address] 01/10/2025 10:00 AM EDT Office Visit [facility] ADULT DENTAL [address] [place] [address] Johana Campoverde [address] [place] [address] documented as of this encounter Visit Diagnoses Not on filedocumented in this encounter Care Teams Chief Marketing Officer Relationship Specialty Start Date End Date Chanda Paredes OD [address] [place] [address] PCP - General Optometry 12/21/16 08/07/23 documented as of this encounter
== END 2024-10-10 14:59 | disposition home or self-care (01) ==
LOC: HO.HOS 13:40
PROVIDERS: PCP Internal Medicine; Visit Provider Physician Assistant
DX: M75.102 Unspecified rotator cuff tear or rupture of left shoulder, not specified as traumatic (principal); M67.912 Unspecified disorder of synovium and tendon, left shoulder
CPT/HCPCS: 99024

== ENCOUNTER → 2024-10-10 13:39 | Outpatient (BNVA) | payer OTHER, SELFPAY | PROVIDERS: PCP Internal Medicine; Visit Provider Physician Assistant | DX: M75.102 Unspecified rotator cuff tear or rupture of left shoulder, not specified as traumatic (principal); M67.912 Unspecified disorder of synovium and tendon, left shoulder | CPT/HCPCS: 99212 ==

== ENCOUNTER 2024-10-11 11:25 | Outpatient (REF) | payer OTHER, SELFPAY ==
[2024-10-11 11:59] LABS: HCG Quantitative < 2 mIU/mL
--- OUTSIDE RECORDS SUMMARY | 2024-10-11 13:13 | XMS_ITS | Encounter Summary ---
Author Organization [employer] [facility] Address [address] [place] [address] [address] [place] [address] Care Team Providers Care Cyber Security Engineer Name Role Phone Unavailable Primary Care Provider Unavailabl e Reason for Visit * Reason Comments Dentures Encounter Details Date Type Department Care Team ([facility] st Contact Info) Description 09/23/2024 3:00 PM EST Office Visit [facility] ADULT DENTAL [address] [place] [address] Samuel Guaman DDS [address] [place] [address] Partially edentulous mandible, unspecified edentulism class (Primary [...] 09/23/24, Timeout Time: 1515 (Bite reg) Location: [facility] Tooth: Mandible Procedure: Dentures Verified the above with patient, machine assistant, and provider. Confirmed via patient's chart, intraorally and by radiographs. Office Professionals: not applicable Chief Complaint Patient presents with [...] -Interpupillary line -Occlusal Relationship -Smile Line -Canine [place] Bite Registration taken with: Wax Tooth Selection: Mould: Shade: A 1 Size: Sent to Lab for tooth set up in wax Lab used: [facility] Lab Due Date: 10-01-24 Patient discharged alert, oriented, and in stable condition. NV: Foundry Superintendant: Chyna Lisa Dentist: Samuel Guaman DDS documented in this encounter Plan of Treatment Upcoming Encounters Date Type Department Care Team (Late st Contact Info) Description 10/21/2024 3:30 PM EDT Office Visit [facility] ADULT DENTAL [address] [place] [address] Samuel Guaman DDS [address] [place] [address] 01/10/2025 10:00 AM EDT Office Visit [facility] ADULT DENTAL [address] [place] [address] Johana Campoverde [address] [place] [address] documented as of this encounter Procedures Procedure Name Priority Date/Time Associated Diagnosis Comments BITE REGISTRATION Routine 09/23/2024 3:00 PM EST documented in this encounter Visit Diagnoses Diagnosis Partially edentulous mandible, unspecified edentulism class- Primary documented in this encounter
--- OUTSIDE RECORDS SUMMARY | 2024-10-11 13:13 | XMS_ITS | Encounter Summary ---
Author Organization [employer] [facility] Address [address] [facility] 7t [place] [address] Care Team Providers Care Cloud Systems Architect Name Role Phone Chanda Paredes OD Primary Care Provider [phone] Encounter Details Date Type Department Care Team (Latest Contact Info) Description 02/01/2019 Abstract [facility] CONVERSIONS Dental, Provider, DDS Social [...] Description 10/21/2024 3:30 PM EDT Office Visit [facility] ADULT DENTAL [address] [place] [address] Samuel Guaman DDS [address] [place] [address] 01/10/2025 10:00 AM EDT Office Visit [facility] ADULT DENTAL [address] [place] [address] Johana Campoverde [address] [place] [address] documented as of this encounter Visit Diagnoses Not on filedocumented in this encounter Care Teams Cloud Systems Architect Relationship Specialty Start Date End Date Chanda Paredes OD [address] [place] [address] PCP - General Optometry 12/21/16 08/07/23 documented as of this encounter
--- OUTSIDE RECORDS SUMMARY | 2024-10-11 13:13 | XMS_ITS | Encounter Summary ---
Author Organization [employer] [facility] Address [address] [facility] 7t [place] [address] Care Team Providers Care Mellowing Machine Operator Name Role Phone Unavailable Primary Care Provider Unavailabl e Reason for Visit * Reason Comments Diabetic Eye Exam Encounter Details Date Type Department Care Team (Late Contact Info) Description 10/03/2024 3:00 PM EST Office Visit [facility] OPTOMETRY [address] [place] [address] Reggie, Chanda, OD [address] [place] [address] Diabetes type 2, no ocular involvement (CMS/HCC) [...] Description 10/21/2024 3:30 PM EDT Office Visit [facility] ADULT DENTAL [address] [place] [address] Samuel Guaman, JENNIFERS [address] [place] [address] 01/10/2025 10:00 AM EDT Office Visit [facility] ADULT DENTAL [address] [place] [address] Christofer Campoverdearis [address] [place] [address] documented as of this encounter Visit Diagnoses Diagnosis Diabetes type 2, no ocular involvement (CMS/HCC)- Primary White without pressure of peripheral retina of left eye Myopia of both eyes documented in this encounter
--- OUTSIDE RECORDS SUMMARY | 2024-10-11 13:13 | XMS_ITS | Encounter Summary ---
Author Organization [employer] [facility] Address [address] [facility] 7t [place] [address] Care Team Providers Care Surgical Asst Name Role Phone Chanda Paredes OD Primary Care Provider [phone] Encounter Details Date Type Department Care Team (Latest Contact Info) Description 11/05/2021 Abstract [facility] CONVERSIONS Dental, Provider, DDS Social [...] Description 10/21/2024 3:30 PM EDT Office Visit [facility] ADULT DENTAL [address] [place] [address] Samuel Guaman DDS [address] [place] [address] 01/10/2025 10:00 AM EDT Office Visit [facility] ADULT DENTAL [address] [place] [address] Johana Campoverde [address] [place] [address] documented as of this encounter Visit Diagnoses Not on filedocumented in this encounter Care Teams Surgical Asst Relationship Specialty Start Date End Date Chanda Paredes OD [address] [place] [address] PCP - General Optometry 12/21/16 08/07/23 documented as of this encounter
--- OUTSIDE RECORDS SUMMARY | 2024-10-11 13:13 | XMS_ITS | Encounter Summary ---
Author Organization [employer] [facility] Address [address] [facility] 7t [place] [address] Care Team Providers Care Avionics Electronics Technician Name Role Phone Unavailable Primary Care Provider [...] Description 10/21/2024 3:30 PM EDT Office Visit [facility] ADULT DENTAL [address] [place] [address] Samuel Guaman DDS [address] [place] [address] 01/10/2025 10:00 AM EDT Office Visit [facility] ADULT DENT[facility] [address] [place] [address] Johana Campoverde [address] [place] [address] documented as of this encounter Visit Diagnoses Not on filedocumented in this encounter
--- OUTSIDE RECORDS SUMMARY | 2024-10-11 13:13 | XMS_ITS | Clinical Summary ---
Author Organization [facility] Facility Address [address] [place] [address] Care Team Providers Care Computer Information Systems Professor Name Role Phone Amanda Horan MD Primary Care Provider [phone] Allergies No known active allergies Medications Acetaminophen [...] Exam 10/26/2021 Influenza Vaccine (#1) 2024 Insurance [facility] MEDICAID Care Teams Computer Information Systems Professor Relationship Specialty Start Date End Date Amanda Horan MD [address] [place], [place] PCP - General Internal Medicine 10/25/21
--- OUTSIDE RECORDS SUMMARY | 2024-10-11 13:13 | XMS_ITS | Encounter Summary ---
Author Organization [employer] [facility] Address [address] [facility] 7t [place] [address] Care Team Providers Care Ct Tech Name Role Phone Unavailable Primary Care Provider Unavailabl e Reason for Visit * Reason Onset Date Comments mandibular partial tx planned not requested 10/2024 Encounter Details Date Type Department Care Team ([facility] Contact Info) Description 08/03/2024 Refill [facility] ADULT DENTAL [address] [place] [address] Samuel Guaman, DDS [address] [place] [address] Dental abscess Social History Tobacco Use Types [...] andand doesn't have those molars either. 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 Guaman documented in this encounter Plan of Treatment Upcoming Encounters Date Type Department Care Team (Late st Contact Info) Description 10/21/2024 3:30 PM EDT Office Visit [facility] ADULT DENTAL [address] [place] [address] Samuel Guaman DDS [address] [place] [address] 01/10/2025 10:00 AM EDT Office Visit [facility] ADULT DENTAL [address] [place] [address] Johana Campoverde [address] [place] [address] documented as of this encounter Visit Diagnoses Diagnosis Dental abscess Periapical abscess without sinus documented in this encounter
--- OUTSIDE RECORDS SUMMARY | 2024-10-11 13:14 | XMS_ITS | Clinical Summary ---
Author Organization [employer] Address [address] [facility] 7t [place] [address] Care Team Providers Care Manager File Name Role Phone Unavailable Primary Care Provider [...] mandible 08/23/2024 Dental plaque 07/10/2024 Fractured dental hinduism with loss of materi al 07/06/2023 Dental calculus 06/05/2023 Dental abscess 06/05/2023 Missing teeth, acquired 06/05/2023 Dyslipidemia 10/26/2021 Type 2 diabetes mellitus wit h diabetic chronic kidney disease 10/26/2021 Asthma 01/18/2012 Depressive disorder 01/18/2012 Encounters Date Type Department Care Team Description 10/03/2024 3:00 PM EST Office Visit [facility] OPTOMETRY [address] [place] [address] Reggie, Chanda, OD Diabetes type 2, no ocular involvement (CMS/HCC) (Primary Dx); White without pressure of peripheral retina of left eye; Myopia of both eyes 10/03/2024 Travel 09/23/2024 3:00 PM EST Office Visit [facility] ADULT DENTAL [address] [place] [address] Samuel Guaman DDS Partially edentulous mandible, unspecified edentulism class (Primary Dx) 08/23/2024 3:30 PM EST Office Visit [facility] ADULT DENTAL [address] [place] [address] Samuel Guaman DDS Missing teeth, acquired (Primary Dx); Partially edentulous mandible, unspecified edentulism class 08/03/2024 Refill [facility] ADULT DENTAL [address] [place] [address] Samuel Guaman DDS Dental abscess 07/30/2024 10:30 AM EST Office Visit [facility] ADULT DENTAL [address] [place] [address] Samuel Guaman DDS Dental abscess (Primary Dx) 07/23/2024 12:30 PM EST Office Visit [facility] ADULT DENTAL [address] [place] [address] April Wray from Last 3 Months Family [...] Description 10/21/2024 3:30 PM EDT Office Visit [facility] ADULT DENTAL [address] [place] [address] Samuel Guaman DDS [address] [place] [address] 01/10/2025 10:00 AM EDT Office Visit [facility] ADULT DENTAL [address] [place] [address] Johana Campoverde [address] [place] [address] Health Maintenance Due Date Last Done Comments [...] Most Recently Relevant to Health Maintenance Insurance [facility] [place] [place] [address] [facility] STAND ADULT
== END 2024-10-11 11:26 | disposition home or self-care (01) ==
LOC: HO.LAB 11:25
PROVIDERS: PCP Internal Medicine; Visit Provider Obstetrics & Gynecology
DX: N91.1 Secondary amenorrhea (principal)
CPT/HCPCS: 36415; 84702

== ENCOUNTER 2024-10-31 11:44 | Outpatient (AMB) | payer OTHER, SELFPAY ==
--- NOTE | 2024-10-31 11:48 | MHC.OFFVIS ---
Vital Signs 10/31/24 12:01 Height 5 ft 7 in Weight 207 lb BMI 32.4 Handedness Right Intake Visit Reasons: Pre LT Shld RTC Repair 11/06/24 NE Intake Note: Sienna is 44 year old right hand dominant female who presets today for a pre op appointment for her left shoulder RTC repair 11/06/24 NE. No problems with anesthesia. Allergies nicotine Allergy (Intermediate, Verified 10/31/24 12:01) Rash metformin Adverse Reaction (Intermediate, Verified 10/31/24 12:01) stomach upset, diarrhea HPI HPI Pre LT Shld RTC Repair 11/06/24 NE: Details: Ms. Cunningham is a 44-year-old right-hand dominant female who presents to office today for her preoperative history and physical prior to a left shoulder rotator cuff repair to be performed on 11/06/[address] Baker. [facility] Medical History MARÍA (generalized anxiety disorder) Right knee pain Microalbuminuria Heel spur Right elbow pain Hand numbness Mild asthma Dyslipidemia Diabetes mellitus Surgical History History of repair of rotator cuff Family History Father Diabetes Hypertension Kidney disease Mother Diabetes Fibromyalgia Brother No problems noted. Paternal Grandmother Stroke Social History Housing: Apartment Alcohol intake: former Patient Tobacco Use Status: Current everyday Tobacco user Tobacco use type: Cigarette Cigarettes Per Day: 8 e-Cigarette/Vaping Use: Never Used Second Hand Smoke Exposure: No service: No Current occupational status: employed Current occupational exposures/hazards: No Cognitive needs: No Hearing needs: No Vision needs: Yes (Glasses) Female Reproductive History Menstrual Age of Menarche: 13 Review of Systems Const All systems reviewed & are unremarkable except as noted in HPI and below Physical Exam Vital Signs: BMI result Body Mass Index 32.4 Const General: cooperative, healthy appearing, comfortable, no acute distress, well developed, alert and awake Orientation/consciousness: patient oriented x3 HEENT Head: Yes normal to inspection, Yes normocephalic and Yes atraumatic Eyes General: appearance normal, both eyes and all related structures Neck Neck: Yes normal visual inspection and Yes no lymphadenopathy Resp Effort & Inspection: normal respiratory effort and able to speak in complete sentences Cardio Rate: regular rate Peripheral pulses: Peripheral pulses 2+ throughout GI Inspection: Yes normal to inspection Palpation (GI): Soft to palpation Skin General skin exam: no rashes or lesions noted Neuro General: patient oriented x3 Extrem Other: 4/5 empty can Negative lift-off Full passive range of motion Active abduction To 90 with pain negative lift-off Equivocal Limon and Neer Psych Mental Status: mental status grossly normal Assessment & Plan Assessment & Plan (1) Dysfunction of left rotator cuff: Code(s): M67.912 - Unspecified disorder of synovium and tendon, left shoulder Category: Medical Plan Ms. Cunningham is a 44 year-old female who presents to the office today for follow-up of left shoulder pain and weakness. The patient was seen last with Dr. Baker on 07/08/24. Prior to that appointment she was last seen 2 years ago and at that time she had a large rotator cuff tear which she elected to treat conservatively. She has been experiencing ongoing pain and weakness and would like to proceed with surgery. I discussed in detail the procedure and what to expect pre and post operatively. We discussed the risks, benefits and alternatives to the surgery as well as the rehabilitation course. The risks; which include, but are not limited to infection, bleeding, nerve injury, ongoing pain, swelling, and stiffness, perioperative risk of injury to bones and soft tissues, and blood clots. The patient was fit for a sling off the shelf while in the office today. This will be brought to the operating room on the day of surgery. Post operative medications were sent to the pharmacy on 10/10/24 in which she still has, Percocet as well as MS Contin,?while in the office today. The patient was instructed that?she?should obtain the prescription prior to surgery but should not consume until after the procedure; as these should only be taken for postoperative pain management. Should the patient take these medications before surgery, a refill will not be sent to the pharmacy until their scheduled refill date.?? Oxycodone-acetaminophen 5-325 mg (Percocet) PO Q4-6H PRN, quantity 42 tabs for 7 days and morphine ER 15 mg (MS Contin) PO Q12H PRN, quantity 6 tabs for 3 days? I?ve answered all questions and with their understanding they have consented to move forward with left shoulder rotator cuff repair with Dr. Baker. Medications: Refilled oxycodone-acetaminophen 5-325 mg Partial Fill upon patient request. 1 tab PO Q4-6H PRN 42 tabs 0RF pain 7 days Coding Level of Care Code Global (85215) Diagnoses Dysfunction of left rotator cuff M67.912
[2024-10-31 12:01] VITALS: BMI 32.4
--- OUTSIDE RECORDS SUMMARY | 2024-10-31 13:07 | XMS_ITS | Clinical Summary ---
Author Organization [facility] Facility Address [address] [place] [address] Care Team Providers Care Crusher Wet Ground Mica Name Role Phone Amanda Horan MD Primary Care Provider [phone] Allergies No known active allergies Medications Acetaminophen [...] Diabetes: Visual Foot Exam 10/26/2021 Influenza Vaccine (Season Ended) 2025 Insurance [facility] MEDICAID Care Teams Crusher Wet Ground Mica Relationship Specialty Start Date End Date Amanda Horan MD [address] [place], [place] PCP - General Internal Medicine 10/25/21
--- OUTSIDE RECORDS SUMMARY | 2024-10-31 13:07 | XMS_ITS | Encounter Summary ---
Author Organization [employer] [facility] Address [address] [facility] 7t [place] [address] Care Team Providers Care Armature Rewinder Name Role Phone Unavailable Primary Care Provider Unavailabl e Reason for Visit * Reason Onset Date Comments mandibular partial tx planned not requested 10/2024 Encounter Details Date Type Department Care Team ([facility] Contact Info) Description 08/03/2024 Refill [facility] ADULT DENTAL [address] [place] [address] Samuel Guaman, DDS [address] [place] [address] Dental abscess Social History Tobacco Use Types [...] doesn't have those molars either. 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 Guaman documented in this encounter Plan of Treatment Upcoming Encounters Date Type Department Care Team (Late st Contact Info) Description 01/10/2025 10:00 AM EDT Office Visit [facility] ADULT DENTAL [address] [place] [address] Gilles, Johana [address] [place] [address] documented as of this encounter Visit Diagnoses Diagnosis Dental abscess Periapical abscess without sinus documented in this encounter
--- OUTSIDE RECORDS SUMMARY | 2024-10-31 13:07 | XMS_ITS | Encounter Summary ---
Author Organization [employer] [facility] Address [address] [facility] 7t [place] [address] Care Team Providers Care Sail Lay Out Worker Name Role Phone Chanda Paredes OD Primary Care Provider [phone] Encounter Details Date Type Department Care Team (Latest Contact Info) Description 02/01/2019 Abstract [facility] CONVERSIONS Dental, Provider, DDS Social History [...] 01/10/2025 10:00 AM EDT Office Visit [facility] ADULT DENTAL [address] [place] [address] Gilles, Johana [address] [place] [address] documented as of this encounter Visit Diagnoses Not on filedocumented in this encounter Care Teams Sail Lay Out Worker Relationship Specialty Start Date End Date Chanda Paredes OD [address] [place] [address] PCP - General Optometry 12/21/16 08/07/23 documented as of this encounter
--- OUTSIDE RECORDS SUMMARY | 2024-10-31 13:07 | XMS_ITS | Encounter Summary ---
Author Organization [employer] [facility] Address [address] [facility] 7t [place] [address] Care Team Providers Care Information And Data Architect Analyst Name Role Phone Chanda Paredes OD Primary Care Provider [phone] Encounter Details Date Type Department Care Team (Latest Contact Info) Description 11/05/2021 Abstract [facility] CONVERSIONS Dental, Provider, DDS Social History [...] Description 01/10/2025 10:00 AM EDT Office Visit [facility] ADULT DENTAL [address] [place] [address] Gilles, Johana [address] [place] [address] documented as of this encounter Visit Diagnoses Not on filedocumented in this encounter Care Teams Information And Data Architect Analyst Relationship Specialty Start Date End Date Chanda Paredes OD [address] [place] [address] PCP - General Optometry 12/21/16 08/07/23 documented as of this encounter
--- OUTSIDE RECORDS SUMMARY | 2024-10-31 13:08 | XMS_ITS | Clinical Summary ---
Author Organization [employer] Address [address] [facility] 7t [place] [address] Care Team Providers Care Television Anchor Name Role Phone Unavailable Primary Care Provider [...] DAY FOR 90 DAYS 06/29/20 22 Active betamethasone, augmented, (Diprolene AF) 0.05 % [...] 20 doses. 20 tablet 07/10/20 24 Active escitalopram (Lexapro) 5 MG tablet Take 5 mg by mouth at bedtime. 08/09/19 25 Active buPROPion XL (Wellbutrin XL) 150 MG 24 hr tablet Take 150 mg by mouth in the morning. 08/12/19 25 Active Blood Glucose Monitoring Suppl (FreeStyle Lite) w/Device kit as directed 09/16/19 25 Active Senna-Time 8.6 MG tablet TAKE 1 TABLET BY MOUTH EVERY DAY AT BEDTIME NEEDED FOR CONSTIPATION 08/03/19 25 Active Ozempic, 2 MG/DOSE, 8 MG/3ML solution pen-injector INJECT 2MG SUBCUTANEOUSLY EVERY WEEK 09/26/19 25 Active pioglitazone (Actos) 30 MG tablet Take 1 tablet by mouth Once per day. 06/10/20 24 Active Ozempic, 1 MG/DOSE, 4 MG/3ML solution pen-injector 1 MG (0.75 ML) SUBCUTANEOUSLY EVERY WEEK FOR 30 DAYS 06/16/20 025 Discontin ued(Thera py completed ) Active Problems Problem Noted Date Diagnosed Date Partially edentulous mandible 08/23/2024 Dental plaque 07/10/2024 Fractured dental pentecostalism with loss of materi al 07/06/2023 Dental calculus 06/05/2023 Dental abscess 06/05/2023 Missing teeth, acquired 06/05/2023 Dyslipidemia 10/26/2021 Type 2 diabetes mellitus wit h diabetic chronic kidney disease 10/26/2021 Asthma 01/18/2012 Depressive disorder 01/18/2012 Encounters Date Type Department Care Team Description 10/03/2024 3:00 PM EST Office Visit [facility] OPTOMETRY [address] [place], [place] [id number] Reggie, Chanda, OD Diabetes type 2, no ocular involvement (CMS/[facility]) (Primary Dx); White without pressure of peripheral retina of left eye; Myopia of both eyes 10/03/2024 Travel 09/23/2024 3:00 PM EST Office Visit [facility] ADULT DENTAL [address] [place], [place] [id number] Samuel Guaman DDS Partially edentulous mandible, unspecified edentulism class (Primary Dx) 08/23/2024 3:30 PM EST Office Visit [facility] ADULT DENTAL [address] [place] [address] Samuel Guaman DDS Missing teeth, acquired (Primary Dx); Partially edentulous mandible, unspecified edentulism class 08/03/2024 Refill [facility] ADULT DENTAL [address] [place] [address] Samuel Guaman DDS Dental abscess from Last 3 Months Family History [...] Description 01/10/2025 10:00 AM EDT Office Visit [facility] ADULT DENTAL [address] [place] [address] Johana Campoverde [address] [place] [address] Health Maintenance Due Date Last Done Comments [...] 2011 HPV/Cotest 2011 Mammogram 2021 COVID-19 Vaccine (3 - season) 2024 02/09/2021, 01/19/2021 Influenza Vaccine (#1) 2024 , 05/18/2022, 05/10/2021, Additional history exists Dental X-Ray: Full Mouth 11/06/2024 11/05/2021, 07/2016 Dental Oral Exam 01/09/2025 07/10/2024, 12/2022, 11/05/2021, Additional history exists Dental Prophylaxis 01/09/2025 07/10/2024, 0 12/21/2023, 06/05/2023, Additional history exists Dental X-Ray: Bitewings 07/24/2025 07/23/20, 07/10/2024, 06/18/2024, Additional history exists Tobacco Screening 10/18/2025 10/18/2024 DTaP/Tdap/Td Vaccines (2 - Td or Tdap) [...] IMPRESSION Routine 08/23/2024 3: 30 PM EST BITEWING - SINGLE RADIOGRAPHIC IMAGE Routine 07/23/2024 12:30 PM EST Full PROPHYLAXIS - ADULT Routine 024 3:00 PM EST Dental abscess Missing teeth, acquired Dental plaque PERIODIC ORAL EVALUATION - ESTABLISHED PATIENT Routine 07/10/2024 3:00 PM EST INTRAORAL - COMPLETE SERIES OF RADIOGRAPHIC IMAGES Routine 11/05/2021 12:00 AM EDT from Last 3 Months or Most Recently Relevant to Health Maintenance Insurance [address] [address] DENTAL-[facility] MEDICAID STAND ADULT
== END 2024-10-31 12:31 | disposition home or self-care (01) ==
PROVIDERS: PCP Internal Medicine; Visit Provider Physician Assistant
DX: M67.912 Unspecified disorder of synovium and tendon, left shoulder (principal)
CPT/HCPCS: 99024

== ENCOUNTER → 2024-10-31 11:44 | Outpatient (BNVA) | payer OTHER, SELFPAY | PROVIDERS: PCP Internal Medicine; Visit Provider Physician Assistant | DX: Z01.818 Encounter for other preprocedural examination (principal); M67.912 Unspecified disorder of synovium and tendon, left shoulder | CPT/HCPCS: 99212 ==

== ENCOUNTER → 2024-10-31 12:11 | Outpatient (BNV) | payer OTHER, SELFPAY | PROVIDERS: PCP Internal Medicine; Visit Provider Internal Medicine | DX: Z01.810 Encounter for preprocedural cardiovascular examination (principal) | CPT/HCPCS: 93010 ==

== ENCOUNTER 2024-11-07 | Outpatient (REF) | payer OTHER, SELFPAY ==
--- NOTE | 2024-10-31 12:11 | ECG_ITS ---
Test Reason : PREOP Blood Pressure : */* mmHG Vent. Rate : 81 BPM Atrial Rate : 81 BPM P-R Int : 130 ms QRS Dur : 88 ms QT Int : 368 ms P-R-T Axes : 23 55 35 degrees QTcB Int : 427 ms Normal sinus rhythm Cannot rule out Anterior infarct , age undetermined ; could be related to body habitus and lead placement Borderline ECG When compared with ECG of 31-Jul-2014 16:45, No significant change was found Referred By: Amanda Raphael Electronically Signed By: MATT BACK
[2024-11-04 08:45] VITALS: BMI 32.4
--- NOTE | 2024-11-05 11:02 | HO.ANESPROP2 ---
HPI - Anesthesia Eval Consult details Narrative: 44yo F for Left Arthroscopic Rotator Cuff Repair Anesthesia Pre-Procedure Meds Is the patient on any of the following meds?: GLP1/DPP4 PMFSH Active Problems Active Problems: All Active Problems (Updated 10/07/24 @ 15:53 by Mia Hylton CNM) S/P rotator cuff repair (Acute) Patient desires (Acute) Amenorrhea, secondary (Acute) Patient left without being seen (Acute) MARÍA (generalized anxiety disorder) (Acute) Skin lesion (Acute) Encounter for IUD removal (Acute) Postoperative abscess involving suture (Acute) Moderate major depression (Acute) Depression (Acute) Rash (Acute) Trigger finger, left middle finger (Acute) Trigger finger, right middle finger (Acute) Physical exam (Acute) Breast cancer screening (Acute) Cervical cancer screening (Acute) Well woman exam with routine gynecological exam (Acute) Class 1 obesity with body mass index (BMI) of 34.0 to 34.9 in adult (Acute) IUD check up (Acute) Rotator cuff tear, left (Acute) Dysfunction of left rotator cuff (Acute) Left shoulder pain (Acute) Complex ovarian cyst (Acute) Abnormal uterine bleeding (AUB) (Acute) Myoma (Acute) Hemorrhagic cyst of left ovary (Acute) MARÍA (generalized anxiety disorder) (Acute) Right knee pain (Acute) Microalbuminuria (Acute) Pelvic pain (Acute) Well woman exam (Acute) Heel spur (Acute) Right elbow pain (Acute) Hand numbness (Acute) Mild asthma (Acute) Dyslipidemia (Acute) Diabetes mellitus (Acute) Past Medical History Medical History MARÍA (generalized anxiety disorder) Right knee pain Microalbuminuria Heel spur Right elbow pain Hand numbness Mild asthma Dyslipidemia Diabetes mellitus Family History Family History Father Diabetes Hypertension Kidney disease Mother Diabetes Fibromyalgia Brother No problems noted. Paternal Grandmother Stroke Surgical History Surgical History History of repair of rotator cuff Social History Social History Housing: Apartment Alcohol intake: former Patient Tobacco Use Status: Current everyday Tobacco user Tobacco use type: Cigarette Cigarettes Per Day: 8 e-Cigarette/Vaping Use: Never Used Second Hand Smoke Exposure: No service: No Current occupational status: employed Current occupational exposures/hazards: No Cognitive needs: No Hearing needs: No Vision needs: Yes (Glasses) Meds Allergies Allergy/AdvReac Type Severity Reaction Status Date / Time nicotine Allergy Intermediate Rash Verified 10/31/24 12:01 metformin AdvReac Intermediate stomach Verified 10/31/24 12:01 upset, diarrhea Exam Height,Weight and Vital Signs: Height 5 ft 7 in Weight 93.894 kg Pertinent Lab Results Pertinent Lab Results: Laboratory Tests 08/07/24 08:29 WBC 8.6 Hgb 13.1 Hct 39.1 Plt Count 317 Sodium 143 Potassium 4.2 Chloride 112 H Carbon Dioxide 24 BUN 17 H Creatinine 0.72 Narrative Narrative: EKG 10/2024 Vent. Rate : 81 BPM Atrial Rate : 81 BPM P-R Int : 130 ms QRS Dur : 88 ms QT Int : 368 ms P-R-T Axes : 23 55 35 degrees QTcB Int : 427 ms Normal sinus rhythm Cannot rule out Anterior infarct , age undetermined ; could be related to body habitus and lead placement Borderline ECG When compared with ECG of 31-Jul-2014 16:45, No significant change was found Assessment and Plan Assessment Anesthesia Assessment: Chart Reviewed
--- OUTSIDE RECORDS SUMMARY | 2025-01-24 12:40 | XMS_ITS | Encounter Summary ---
Author Organization [employer] Address [address] [facility] [address] [place] [address] Care Team Providers Care Nursing Instructor Name Role Phone Unavailable Primary Care Provider Unavailabl e Reason for Visit * Reason Onset Date Comments mandibular partial tx planned not requested 10/2024 Encounter Details Date Type Department Care Team ([facility] Contact Info) Description 08/03/2024 Refill [facility] [address] [place] [address] Samuel Guaman, DDS [address] [place] [address] Dental abscess Social History Tobacco Use Types [...] have those molars either. For front end developer designer pls reach out to patient for scheduling DR * Telephone Encounter - Ildefonso Encarnacion DMD - 08/05/2024 8:21 AM EST Please follow up with Dr. Guaman documented in this encounter Plan of Treatment Not on file documented as of this encounter Visit Diagnoses Diagnosis Dental abscess Periapical abscess without sinus documented in this encounter
== END 2024-11-07 00:01 | disposition home or self-care (01) ==
LOC: HO.PAT
PROVIDERS: PCP Internal Medicine; Visit Provider Orthopaedic Surgery
DX: M75.102 Unspecified rotator cuff tear or rupture of left shoulder, not specified as traumatic (principal)
CPT/HCPCS: 93005

== ENCOUNTER 2024-11-13 16:00 | Outpatient (AMB) | payer OTHER, SELFPAY ==
[2024-11-13 16:04] VITALS: BP 136/80; BMI 33.0
--- NOTE | 2024-11-13 16:04 | A.OFFPC_ITS ---
Vital Signs 11/13/24 16:04 Height 5 ft 7 in Weight 211 lb BMI 33.0 BP 136/80 Blood Pressure Location Lt brachial Position Sitting Intake Visit Reasons: Annual Exam Intake Note: Patient here for a physical exam Learn To Swim Instructor Required: No Accompanied by: Self / Same As Patient Allergies nicotine Allergy (Intermediate, Verified 11/13/24 16:18) Rash metformin Adverse Reaction (Intermediate, Verified 11/13/24 16:18) stomach upset, diarrhea Medication List - Last Reconciled 11/13/24 by Amanda Raphael MD acetaminophen (Tylenol Extra Strength) 500 mg PO Q6H PRN 30 days albuterol sulfate 2.5 mg (3 mL) inhalation Q6H PRN 30 days atorvastatin 40 mg PO BEDTIME 90 days betamethasone, augmented 0.05 % 1 appl topical DAILY PRN 30 days blood sugar diagnostic (FreeStyle Lite Strips) 1 strip miscellaneous BID 90 days blood-glucose meter (FreeStyle Lite Meter kit) As directed bupropion HCl XL 150 mg PO QAM 90 days cyclobenzaprine 10 mg PO TID PRN ibuprofen 800 mg PO Q8H PRN lancets As directed medroxyprogesterone (Provera) 10 mg PO DAILY morphine ER (MS Contin) 15 mg PO Q12H 3 days nicotine 1 patch transdermal DAILY 28 days oxycodone-acetaminophen 5-325 mg 1 tab PO Q4-6H PRN 7 days semaglutide (Ozempic) 2 mg (0.75 mL) subcut QWEEK 30 days sennosides (Senna Lax) 8.6 mg PO BEDTIME PRN 90 days umeclidinium-vilanterol 62.5-25 mcg/actuation (Anoro Ellipta) 1 inh inhalation DAILY 60 days Ventolin HFA 90 mcg/actuation (albuterol sulfate) 2 puffs inhalation Q6H PRN 30 days NS Tobacco use date assessed: 08/12/24 Dental Screening Dental Screen Date: 08/12/24 HPI HPI Comments History of Present Illness Details The patient is a 44-year-old female presenting for a physical examination. She also has chronic conditions, including Type 2 Diabetes Mellitus with a current Hemoglobin A1c of 7.4. Her therapies have included Ozempic, and she has a history of intolerance to Metformin. She takes Bupropion for Depressive Disorder and has a history of eczema treated with topical cortisone. She underwent right shoulder rotator cuff repair, which affects her physical activity. She reports a familial pattern of diabetes, and her preventative practices include current vaccinations. Her lifestyle includes minimal alcohol intake and previous Mirena use. The patient is allergic to nicotine, Metformin, and nicotine patches, which impacts her treatment options. - Vaccinations: Up-to-date, with tetanus booster due in 2026. - Pap smear performed in 2021. - Mammography current as per screening carol koehler. - Recommendations for periodic eye exami nations discussed. - Discussion about colonoscopy scheduled in two years. - Regular monitoring of Hemoglobin A1c f or diabetes management. - Discussion on dietary and lifestyle mo difications to address diabetes and weight management. [facility] Medical History MARÍA (generalized anxiety disorder) Right knee pain Microalbuminuria Heel spur Right elbow pain Hand numbness Mild asthma Dyslipidemia Diabetes mellitus Surgical History History of repair of rotator cuff Family History Father Diabetes Hypertension Kidney disease Mother Diabetes Fibromyalgia Brother No problems noted. Paternal Grandmother Stroke Social History (Updated 11/13/24 @ 16:23 by Amanda Raphael MD) Housing: Apartment Alcohol intake: current Alcohol intake frequency: holidays/special occasions only Alcohol type: hard liquor Patient Tobacco Use Status: Current everyday Tobacco user Tobacco use type: Cigarette Cigarettes Per Day: 8 e-Cigarette/Vaping Use: Never Used Second Hand Smoke Exposure: No service: No Current occupational status: employed Current occupational exposures/hazards: No Cognitive needs: No Hearing needs: No Vision needs: Yes (Glasses) Female Reproductive History Menstrual Age of Menarche: 13 Questionnaire PHQ-9 Over the last 2 weeks, how often have you been bothered by any of the following problems? 1. Little interest or pleasure in doing things: several days 2. Feeling down, depressed, or hopeless: several days 3. Trouble falling or staying asleep, or sleeping too much: several days 4. Feeling tired or having little energy: several days 5. Poor appetite or overeating: nearly every day 6. Feeling bad about yourself - or that you are a failure or have let yourself or your family down: nearly every day 7. Trouble concentrating on things, such as reading the newspaper or watching television: several days 8. Moving or speaking so slowly that other people could have noticed. Or the opposite - being so fidgety or restless that you have been moving around a lot more than usual: not at all 9. Thoughts that you would be better off or of hurting yourself in some way: not at all Total score: 11 Depression Screening Interpretation: Positive Depression Screening Follow-up: Existing condition, In treatment and Follow-up Visit Requested Depression Screening Done: Yes 53425 - PHQ-9 Billing: Yes Source: Developed by Drs. Isiah Garcia, Maria Bullard, Jude Todd and colleagues, with an educational amara from [employer] cities. Thrive Questionnaire Date Thrive assessed: 08/12/24 I am a: Patient What is your living situation today?: I have a steady place to live Within the past 12 months, did the food you bought not last and you didn't have the money to get more?: I choose not to answer this question Within the past 12 months, did you worry whether your food would run out before you got money to buy more?: I choose not to answer this question Do you have trouble paying for medicines?: No Do you have trouble getting transportation to medical appointments?: No Do you have trouble paying your heating and electricity bill?: No Do you have trouble taking care of your child, family member or friend?: No Do you have trouble with day-to-day activities such as bathing, preparing meals, shopping, managing finances, etc.?: No Are you currently unemployed and looking for a job?: I choose not to answer this question Are you interested in more education?: No Please select the resources that you would like help with: None Currently or been in a relationship where the following occur: No concerns reported THRIVE Score: 0 AUDIT C Alcohol Use Questionnaire (AUDIT-C) 1. How often do you have a drink containing alcohol?: Never Total Score: 0 Score Reviewed/Action Taken: No MARÍA-7 AMB Questionnaire MARÍA-7 Date MARÍA - 7 assessed: 08/12/24 Feeling nervous, anxious, or on edge: 3 = Nearly every day Not being able to stop or control worryin = Nearly every day Worrying too much about different things: 1 = Several days Trouble relaxin = Nearly every day Being so restless that it is hard to sit still: 1 = Several days Becoming easily annoyed or irritable: 1 = Several days Feeling afraid as if something awful might happen: 0 = Not at all Total MARÍA-7 score (0-4 normal; 5-9 mild; 10-14 moderate; 15-21 severe): 12 Source: Developed by Drs. Isiah Garcia, Maria Bullard, Jude Todd and colleagues, with an educational amara from [employer]. MARÍA-7 Assessment Billing MARÍA-7 Assessment Tool: MARÍA-7 Assessment 24100 Review of Systems Const All systems reviewed & are unremarkable except as noted in HPI and below Card Denies chest pain at rest, Denies chest pain with activity, Denies edema, Denies irregular heart rhythm, Denies claudication, Denies dyspnea, Denies dyspnea on exertion, Denies orthopnea, Denies paroxysmal nocturnal dyspnea and Denies slow heart rate Resp Denies cough, Denies dyspnea and Denies dyspnea on exertion GI Denies abdominal pain, Denies change in bowel habits, Denies excessive flatus, Denies nausea and Denies vomiting Denies urinary incontinence, Denies urinary hesitancy and Denies urinary urgency Musc Denies atrophy, Denies deformity and Denies limited range of motion Skin/Breast Denies bleeding lesions, Denies changing lesions and Denies rash Physical exam (Primary Care) Vital Signs: Last Vital Signs BP 136/80 11/13/24 16:04 BMI result Body Mass Index 33.0 BMI Assessment/Plan discussion: High BMI High, discussed plan: lifestyle, weight reduction, dietary and physical activity Tobacco/Smoking Status: Tobacco use Status Tobacco use date assessed 08/12/24 11/13/24 16:12 Patient Tobacco Use Status Current everyday Tobacco 11/13/24 16:12 Tobacco use type Cigarette 11/13/24 16:12 e-Cigarette/Vaping Use Never Used 11/13/24 16:12 PHQ-9: PHQ-9 Score PHQ-9: Total score 11 11/13/24 16:15 Depression Screening Interpretation: Positive Depression Screening Follow-up: Existing condition, In treatment and Follow-up Visit Requested Thrive Assessment: Date of Thrive Assessment Date Thrive assessed 08/12/24 11/13/24 16:12 Currently or been in a relationship where the following occur: No concerns reported [facility] Head: Yes normal to inspection, Yes normocephalic and Yes atraumatic Ears: external ears normal Eyes General: appearance normal, both eyes and all related structures Eyelids: Yes eyelids normal Conjunctivae: conjunctivae normal Neck Neck: Yes normal visual inspection and Yes supple Resp Effort & Inspection: normal respiratory effort Auscultation: clear to auscultation bilaterally Cardio Jugular venous distension: no JVD Rate: regular rate Rhythm: regular rhythm Heart sounds: S1 normal heart sound present and S2 normal heart sound present GI Inspection: Yes normal to inspection Palpation (GI): Soft to palpation and nontender Auscultation: normal bowel sounds Skin General skin exam: no rashes or lesions noted Neuro General: no focal motor deficits Extrem General: Yes full ROM Psych Appearance: grossly normal Results AMB Hemoglobin A1c AMB Hemoglobin A1c 7.4 % Last Edit by CHRISTIANO Marley on 11/13/24 16:1 6 Results Reviewed Results Reviewed: Laboratory Last Values Hgb A1c (Clinic) 7.4 % (4.0-6.0) H 11/13/24 16:03 Coding Level of Care Code Est Pt Prev Care 40-64y(40816) Diagnoses Physical exam Z00.00 Moderate major depression F32.1 Type 2 diabetes mellitus without complication, without long-term current use of insulin E11.9 Diabetes mellitus type: type 2 Diabetes mellitus alf insulin use: without termite exterminator use Diabetes mellitus complication status: without complication Additional Codes PHQ-9 - 60318 - PHQ-9 Billing: Yes ([id number]) MARÍA-7 Assessment Billing - MARÍA-7 Assessment Tool: MARÍA-7 Assessment 39403 ([id number]) Time Spent (min) 30 Assessment & Plan Assessment & Plan (1) Physical exam: Code(s): Z00.00 - Encounter for general adult medical examination without abnormal findings Category: Medical (2) Moderate major depression: Code(s): F32.1 - Major depressive disorder, single episode, moderate Category: Medical (3) Diabetes mellitus: Code(s): E11.9 - Type 2 diabetes mellitus without complications Category: Medical Qualifiers: Diabetes mellitus type: type 2 Diabetes mellitus termite exterminator insulin use: without termite exterminator use Diabetes mellitus complication status: without complication Qualified Code(s): E11.9 - Type 2 diabetes mellitus without complications Plan Management of the patient's Type 2 Diabetes Mellitus involves maintaining Ozempic therapy and considering additional medication interventions due to Metformin intolerance and current glycemic levels. Her depression is controlled with Bupropion. Eczema treatment includes ongoing use of betamethasone cream. Previous right shoulder surgery requires monitoring of physical activity. Constipation is managed by lifestyle adjustments. A thorough review of medications will occur at the next visit, with focus on adherence and side effect management. Prevention includes up-to-date vaccines and screenings. Patient was informed and verbally consented to the use of an ambient scribe for clinic note documentation during this visit. During our discussion, I addressed the management of the patient's Type 2 D iabetes Mellitus with a focus on the need to maintain Ozempic and possibly add alternate therapy due to elevated A1c. We discussed potential benefits and risks associated with continued and additional medications, given her medication allergies. We reviewed her current treatments for depression and eczema, confirming medication efficacy and ongoing management strategies. The patient's preventative care is up to date, and I reiterated the importance of vaccine compliance and regular screenings. Future consultations were planned to review laboratory results and medication adjustments. Orders: Orders AMB Hemoglobin A1c Today E11.9 - Type 2 diabetes mellitus without complications Medications: New empagliflozin (Jardiance) 10 mg PO DAILY 90 days 90 tabs 1RF Patient Instructions: - Continue Ozempic 2mg once weekly. - Use Bupropion 150 mg as prescribed for depression. - Apply betamethasone cream as needed for eczema management. - Follow dietary advice to manage constipation. - Schedule and attend regular check-ups and screenings. - Maintain up-to-date vaccinations, including the upcoming tetanus booster in 2026. - process supervisor prescribed Jardiance from [facility] as discussed. - Monitor blood glucose levels and report any significant changes. - Return for routine lab tests and follow-up appointments as advised.
--- OUTSIDE RECORDS SUMMARY | 2024-11-13 18:11 | XMS_ITS | Encounter Summary ---
Author Organization [employer] [facility] Address [address] [place] [address] Care Team Providers Care Finance Accounting Internship Name Role Phone Unavailable Primary Care Provider Unavailabl e Reason for Visit * Reason Onset Date Comments mandibular partial tx planned not requested 10/2024 Encounter Details Date Type Department Care Team ([facility] Contact Info) Description 08/03/2024 Refill [facility] [place] [facility] [address] [place] [address] Samuel Guaman, DDS [address] [place] [address] Dental abscess Social History Tobacco Use Types [...] andand doesn't have those molars either. For administrative assistant front desk pls reach out to patient for scheduling DR * Telephone Encounter - Ildefonso Encarnacion DMD - 08/05/2024 8:21 AM EST Please follow up with Dr. Guaman documented in this encounter Plan of Treatment Upcoming Encounters Date Type Department Care Team (Late st Contact Info) Description 01/10/2025 10:00 AM EDT Office Visit [facility] [address] [place] [address] Gilles, Johana [address] [place] [address] documented as of this encounter Visit Diagnoses Diagnosis Dental abscess Periapical abscess without sinus documented in this encounter
--- OUTSIDE RECORDS SUMMARY | 2024-11-13 18:11 | XMS_ITS | Encounter Summary ---
Author Organization [employer] [facility] Address [address] [place] [address] Care Team Providers Care Crm System Administrator Name Role Phone Chanda Paredes OD Primary Care Provider [phone] Encounter Details Date Type Department Care Team (Latest Contact Info) Description 02/01/2019 Abstract [facility] Dental, Provider, DDS Social History [...] Description 01/10/2025 10:00 AM EDT Office Visit [facility] [address] [place] [address] Gilles, Johana [address] [place] [address] documented as of this encounter Visit Diagnoses Not on filedocumented in this encounter Care Teams Crm System Administrator Relationship Specialty Start Date End Date Chanda Paredes OD [address] [place] [id number] PCP - General Optometry 12/21/16 08/07/23 documented as of this encounter
--- OUTSIDE RECORDS SUMMARY | 2024-11-13 18:12 | XMS_ITS | Clinical Summary ---
Author Organization [employer] Address [address] [facility] [address] [place] [address] Care Team Providers Care Petroleum Refinery Laborer Name Role Phone Unavailable Primary Care Provider [...] mandible 08/23/2024 Dental plaque 07/10/2024 Fractured dental catholic with loss of materi al 07/06/2023 Dental calculus 06/05/2023 Dental abscess 06/05/2023 Missing teeth, acquired 06/05/2023 Dyslipidemia 10/26/2021 Type 2 diabetes mellitus wit h diabetic chronic kidney disease 10/26/2021 Asthma 01/18/2012 Depressive disorder 01/18/2012 Encounters Date Type Department Care Team Description 11/01/2024 1:30 PM EDT Office Visit [facility] [address] [place] [address] Chanda Paredes, OD Myopia of both eyes (Primary Dx) 11/01/2024 Travel 10/03/2024 3:00 PM EST Office Visit [facility] [address] [place] [address] Chanda Paredes, OD Diabetes type 2, no ocular involvement (CMS/HCC) (Primary Dx); White without pressure of peripheral retina of left eye; Myopia of both eyes 10/03/2024 Travel 09/23/2024 3:00 PM EST Office Visit [facility] [address] [place] [address] Samuel Guaman DDS Partially edentulous mandible, unspecified edentulism class (Primary Dx) 08/23/2024 3:30 PM EST Office Visit [facility] [address] [place] [address] Samuel Guaman DDS Missing teeth, acquired (Primary Dx); Partially edentulous mandible, unspecified edentulism class from Last 3 Months Family History Medical [...] Description 01/10/2025 10:00 AM EDT Office Visit [facility] [address] [place] [address] GillesJohana [address] [place] [address] Health Maintenance Due Date Last Done Comments [...] HPV/Cotest 2011 Mammogram 2021 COVID-19 Vaccine ( - season) 2024 02/09/2021, 01/19/2021 Dental X-Ray: Full Mouth 11/06/2024 11/05/2021, 07/2016 Dental Oral Exam 01/09/2025 07/10/2024, 12/2022, 11/05/2021, Additional history exists Dental Prophylaxis 01/09/2025 07/10/2024, 0 12/21/2023, 06/05/2023, Additional history exists Dental X-Ray: Bitewings 07/24/2025 07/23/20 24, 07/10/2024, 06/18/2024, Additional history exists Tobacco Screening 10/18/2025 10/18/2024 DTaP/Tdap/Td Vaccines (2 - Td or Tdap) 08/29/2026 08/29/2016, 10/10/2008 Eye Exam 10/03/2026 10/03/2024, 12/2024, 10/03/2024, Additional history exists Zoster Vaccines (1 of 2) 2031 RSV Patients and Patients Aged 60 years or older (1 - 1-dose 75+ series) 2056 Influenza Vaccine Completed 10/15/2024, , 05/18/2022, Additional history exists HIB Vaccines Aged Out No longer eligi [...] Most Recently Relevant to Health Maintenance [place] [address] DENTAL-[facility] MEDICAID STAND ADULT
--- OUTSIDE RECORDS SUMMARY | 2024-11-13 18:12 | XMS_ITS | Clinical Summary ---
Author Organization [facility] Address [address] [place] [address] Care Team Providers Care Reinsurance Claim Analyst Name Role Phone Amanda Horan MD Primary Care Provider [phone] Allergies No known active allergies Medications Acetaminophen [...] Health Maintenance Due Date Last Done Comments Hepatitis B Vaccine (1 of 3 - 19+ 3-dose series) 08/10 Pneumococcal Vaccine: Peds ( 0 to 5 Years) and At-Risk Patients (6 to 49 Years) (1 of 2 - PCV) 2000 Diabetes: Hemoglobin A1C 10/26/2021 Diabetes: Ophthalmology Exam 10/26/2021 Diabetes: Pedal Pulse Checked 10/26/2021 Diabetes: Sensory Foot Exam 10/26/2021 Diabetes: Visual Foot Exam 10/26/2021 Influenza Vaccine (Season Ended) 2025 Insurance [facility] Medicaid Care Teams Reinsurance Claim Analyst Relationship Specialty Start Date End Date Amanda Horan MD [address] [place], [place] PCP - General Internal Medicine 10/25/21
--- OUTSIDE RECORDS SUMMARY | 2024-11-13 18:12 | XMS_ITS | Encounter Summary ---
Author Organization [employer] [facility] Address [address] [facility] [address]t [place] [address] Care Team Providers Care Application Support Developer Name Role Phone Chanda Paredes OD Primary Care Provider [phone] Encounter Details Date Type Department Care Team (Latest Contact Info) Description 11/05/[address] [facility] CONVERSIONS Dental, Provider, DDS Social History [...] Description 01/10/2025 10:00 AM EDT Office Visit [facility] [address] [place] [address] Gilles, Johana [address] [place] [address] documented as of this encounter Visit Diagnoses Not on filedocumented in this encounter Care Teams Application Support Developer Relationship Specialty Start Date End Date Chanda Paredes OD [address] [place] [id number] PCP - General Optometry 12/21/16 08/07/23 documented as of this encounter
== END 2024-11-13 16:30 | disposition home or self-care (01) ==
LOC: HO.HMCH 16:00
PROVIDERS: PCP Internal Medicine; Visit Provider Internal Medicine
DX: Z00.00 Encounter for general adult medical examination without abnormal findings (principal); F32.1 Major depressive disorder, single episode, moderate; E11.9 Type 2 diabetes mellitus without complications

== ENCOUNTER → 2024-11-13 16:00 | Outpatient (BNVA) | payer OTHER, SELFPAY | PROVIDERS: PCP Internal Medicine; Visit Provider Internal Medicine | DX: Z00.00 Encounter for general adult medical examination without abnormal findings (principal); F32.1 Major depressive disorder, single episode, moderate; E11.9 Type 2 diabetes mellitus without complications | CPT/HCPCS: 83036; 96127; 99396 ==

== ENCOUNTER 2025-01-28 08:07 | Outpatient (AMB) | payer OTHER, SELFPAY ==
--- NOTE | 2025-01-28 08:07 | MHC.OFFVIS ---
Intake Visit Reasons: irregular periods Geospatial Image Analyst: Geospatial Image Analyst Present (Ruthie) Accompanied by: Self / Same As Patient Allergies nicotine Allergy (Intermediate, Verified 01/28/25 08:14) Rash metformin Adverse Reaction (Intermediate, Verified 01/28/25 08:14) stomach upset, diarrhea Is last menstrual period known: Yes Last menstrual period: 12/04/24 Post menopausal: No Patient : No HPI Comments Details: The patient presenting for follow-up regarding amenorrhea. The patient was seen by Mia Hylton CNM urine test was negative, TSH, prolactin was normal, Provera withdrawal test was given to the patient which was followed by positive bleeding. No other concerns. The patient is not interested in contraception Last co testing in 06/21 was negative, last mammogram was BI-RADS 2 in 09/24 [facility] Medical History MARÍA (generalized anxiety disorder) Right knee pain Microalbuminuria Heel spur Right elbow pain Hand numbness Mild asthma Dyslipidemia Diabetes mellitus Surgical History History of repair of rotator cuff Family History Father Diabetes Hypertension Kidney disease Mother Diabetes Fibromyalgia Brother No problems noted. Paternal Grandmother Stroke Social History Housing: Apartment Alcohol intake: current Alcohol intake frequency: holidays/special occasions only Alcohol type: hard liquor Patient Tobacco Use Status: Current everyday Tobacco user Tobacco use type: Cigarette Cigarettes Per Day: 8 e-Cigarette/Vaping Use: Never Used Second Hand Smoke Exposure: No service: No Current occupational status: employed Current occupational exposures/hazards: No Cognitive needs: No Hearing needs: No Vision needs: Yes (Glasses) Female Reproductive History Menstrual Age of Menarche: 13 Date of last menstrual period: 12/04/24 control method: none Review of Systems Const All systems reviewed & are unremarkable except as noted in HPI and below Reports as per HPI and Reports no additional complaints GI Reports no additional complaints Reports no additional complaints Assessment & Plan Assessment & Plan (1) Anovulatory amenorrhea: Code(s): N91.2 - Amenorrhea, unspecified Category: Medical Plan: UPT done in the office was negative. Discussed with the patient the workup done negative urine test with a positive progesterone withdrawal test and a negative TSH and prolactin, diagnose of anovulatory amenorrhea. Discussed with the patient the results of the work up done and options of treatment including but not limited to BCP's, cyclic Progesterone, Mirena IUD. All pros, cons, risks and benefits of each option were discussed with the patient and the patient decided to go ahead with cyclic Prometrium since she is not interested in contraception and interested in future fertility, so a more detailed discussion re: Progesterone treatment including mechanism of action, benefits (regular menses, endometrial protection form unopposed estrogen and reduction in the risk of endometrial hyperplasia and/or cancer ...), risks (Thrombosis, mood changes, weight gain, breast soreness, ? increased breast ca, others). Instructions were given to use a back- up method for contraception since this is not a method control, take Prometrium 200 mg 1 tablet daily starting day 15-24 and to schedule a 3 months follow-up appointment; patient verbalized understanding and agreed with the plan. Medications: New progesterone micronized (Prometrium) Take the pill 1 tablet a day cyclically every month from day 15-24 day 1 being the 1st day of next menstrual cycle 200 mg PO BEDTIME 30 caps 0RF 10 days Coding Level of Care Code Est Pt Level 3 (91376) Diagnoses Anovulatory amenorrhea N91.2
--- OUTSIDE RECORDS SUMMARY | 2025-01-28 08:12 | XMS_ITS | Encounter Summary ---
Author Organization [employer] Address [address] [facility] 7t [place] [address] Care Team Providers Care Adjunct Faculty Mathematics Department Name Role Phone Unavailable Primary Care Provider Unavailabl e Reason for Visit * Reason Onset Date Comments mandibular partial tx planned not requested 10/2024 Encounter Details Date Type Department Care Team ([facility] Contact Info) Description 08/03/2024 Refill [facility] ADULT DENTAL [address] [place] [address] Samuel Guaman, DDS [address] [place] [address] Dental abscess Social History Tobacco Use Types [...] have those molars either. 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 Guaman documented in this encounter Plan of Treatment Not on file documented as of this encounter Visit Diagnoses Diagnosis Dental abscess Periapical abscess without sinus documented in this encounter
--- OUTSIDE RECORDS SUMMARY | 2025-01-28 08:12 | XMS_ITS | Clinical Summary ---
Author Organization [facility] Facility Address [address] [place] [address] Care Team Providers Care Skein Yarn Drier Name Role Phone Amanda Horan MD Primary Care Provider [phone] Allergies No known active allergies Medications Acetaminophen [...] 10/26/2021 Influenza Vaccine (Season Ended) 2025 Insurance [facility] Medicaid Care Teams Skein Yarn Drier Relationship Specialty Start Date End Date Amanda Horan MD [address] [place], [place] PCP - General Internal Medicine 10/25/21
== END 2025-01-28 08:34 | disposition home or self-care (01) ==
LOC: HO.HWS 08:07
PROVIDERS: PCP Internal Medicine; Visit Provider Obstetrics & Gynecology
DX: N91.2 Amenorrhea, unspecified (principal)
CPT/HCPCS: 99213

== ENCOUNTER → 2025-01-28 08:07 | Outpatient (BNVA) | payer OTHER, SELFPAY | PROVIDERS: PCP Internal Medicine; Visit Provider Obstetrics & Gynecology | DX: Z71.2 Person consulting for explanation of examination or test findings (principal); N91.2 Amenorrhea, unspecified | CPT/HCPCS: 99212 ==

== ENCOUNTER 2025-03-19 10:31 | Outpatient (REF) | payer OTHER, SELFPAY ==
--- OUTSIDE RECORDS SUMMARY | 2025-03-19 11:49 | XMS_ITS | Clinical Summary ---
Author Organization [facility] Facility Address [address] [place] [address] Care Team Providers Care Us Administrative Law Judge Name Role Phone Amanda Horan MD Primary Care Provider Allergies No known active allergies Medications Acetaminophen [...] Visual Foot Exam 10/26/2021 Influenza Vaccine (#1) 2025 Insurance [facility] Medicaid Care Teams Us Administrative Law Judge Relationship Specialty Start Date End Date Amanda Horan MD [address] [place], [place] PCP - General Internal Medicine 10/25/21
--- OUTSIDE RECORDS SUMMARY | 2025-03-19 11:49 | XMS_ITS | Clinical Summary ---
Author Organization [facility] Address [address] [place] [address] [address] Phone Care Team Providers Care Veneer Splicer Name Role Phone Amanda Horan MD Primary Care Provid er Allergies No known active allergies Social History Tobacco Use Types Packs/Day Years Used Date Smoking Tobacco: Never Assessed Education Answer Date Recorded Are you interested in more education? Not on danielle e 11/25/2022 Are you concerned about learning? Not on file 11/25/2022 No 11/25/2022 No 11/25/2022 Digital Access Answer Date Recorded No 12/26/2022 No 12/26/2022 Reliable internet access at home? Not on file 12/26/2022 Device with a working camera? Not on file Comments Unknown Sex and Gender Information Value Date Recorded Sex Assigned at Not on file Legal Sex Female 10:29 PM EDT Gender Identity Not on file Sexual Orientation Not on file Last Filed Vital Signs Vital Sign Reading Time Taken Comments Blood Pressure 144/90 08/31/2020 7:15 PM EST Pulse 82 08/31/2020 7:03 PM EST Temperature 36.8 C (98.2 F) 08/31/2020 7:03 PM EST Respiratory Rate 18 08/31/2020 7:03 PM EST Oxygen Saturation 98% 08/31/2020 7:15 PM EST Inhaled Oxygen Concentration - - Weight - - Height - - Body Mass Index - - Plan of Treatment Not on file Medical Devices Not on file Insurance [employer] Member Subscriber Plan / Payer (Ef fective 2020-Present) Name:Sienna Cunningham Relation to Subscriber:Self Name:Sienna Cunningham Payer ID:Not on file Group ID:FAX # [id number] Type:Indemnity Address: [address] [address] Care Teams Veneer Splicer Relationship Specialty Start Date End Date Amanda Horan MD [address] [place] [address] PCP - General Internal Medicine 08/31/20 Additional Source Comments The information contained in this document represents components of the legal health record. It is not the complete legal health record.[facility]
--- OUTSIDE RECORDS SUMMARY | 2025-03-19 11:49 | XMS_ITS | Encounter Summary ---
Author Organization [employer] Address [address] [facility] 7t [place] [address] Care Team Providers Care Traffic Inspector Name Role Phone Unavailable Primary Care Provider Unavailabl e Reason for Visit * Reason Onset Date Comments mandibular partial tx planned not requested 10/2024 Encounter Details Date Type Department Care Team ([facility] Contact Info) Description 08/03/[address] [facility] ADULT DENTAL [address] [place] [address] Samuel Guaman, DDS [address] [place] [address] Dental abscess Social History Tobacco Use Types [...] have those molars either. 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 Guaman documented in this encounter Plan of Treatment Not on file documented as of this encounter Visit Diagnoses Diagnosis Dental abscess Periapical abscess without sinus documented in this encounter
[2025-03-19 12:32] LABS: Alanine Aminotransferase 23 U/L (0-31); Albumin Level 4.3 g/dL (3.5-5.0); Alkaline Phosphatase 110 U/L (39-117); Anion Gap 13 (12-20); Aspartate Amino Transferase 22 U/L (5-31); Blood Urea Nitrogen 16 mg/dL (9-16); Calcium 9.1 mg/dL (8.4-10.2); Carbon Dioxide 22 mmol/L (22-29); Chloride 109 mmol/L (96-108); Cholesterol 138 mg/dL (<200); Estimated Glomerular Filt Rate > 60; HDL Cholesterol 37 mg/dL (>40); Potassium 3.9 mmol/L (3.3-5.1); Sodium 140 mmol/L (135-145); Total Protein 7.2 g/dL (6.5-8.0); Triglycerides 185 mg/dL (<150)
[2025-03-19 13:14] LABS: Microalbum/Creatinine Ratio Ur 6.0 ug/mg cr (<30)
== END 2025-03-19 10:32 | disposition home or self-care (01) ==
LOC: HO.LAB 10:31
PROVIDERS: PCP Internal Medicine; Visit Provider Internal Medicine
DX: E11.9 Type 2 diabetes mellitus without complications (principal); E55.9 Vitamin D deficiency, unspecified; E78.5 Hyperlipidemia, unspecified; R80.9 Proteinuria, unspecified
CPT/HCPCS: 36415; 80053; 80061; 82043; 82306; 82570

== ENCOUNTER 2025-03-20 14:57 | Outpatient (AMB) | payer OTHER, SELFPAY ==
--- OUTSIDE RECORDS SUMMARY | 2025-03-20 15:01 | XMS_ITS | Clinical Summary ---
Author Organization [facility] Address [address] [address] Phone Care Team Providers Care Note Teller Name Role Phone Amanda Horan MD Primary [...] Payer ID:Not on file Group ID:FAX # [id number] Type:Indemnity Address: [address] [address] Care Teams Note Teller Relationship Specialty Start Date End Date Amanda Horan MD [address] [place] [address] PCP - General Internal Medicine 08/31/20 Additional Source Comments The information contained in this document represents components of the legal health record. It is not the complete legal health record.[facility]
--- OUTSIDE RECORDS SUMMARY | 2025-03-20 15:01 | XMS_ITS | Clinical Summary ---
Author Organization [facility] Facility Address [address] [place] [address] Care Team Providers Care Superintendent Meters Name Role Phone Amanda Horan MD Primary Care Provider [phone] Allergies No known active allergies Medications Acetaminophen [...] Exam 10/26/2021 Influenza Vaccine (#1) 2025 Insurance [facility] Medicaid Care Teams Superintendent Meters Relationship Specialty Start Date End Date Amanda Horan MD [address] [place], [place] PCP - General Internal Medicine 10/25/21
--- OUTSIDE RECORDS SUMMARY | 2025-03-20 15:01 | XMS_ITS | Encounter Summary ---
Author Organization [employer] Address [address] [facility] 7t [place] [address] Care Team Providers Care Glass Sander Belt Name Role Phone Unavailable Primary Care Provider Unavailabl e Reason for Visit * Reason Onset Date Comments mandibular partial tx planned not requested 10/2024 Encounter Details Date Type Department Care Team ([facility] Contact Info) Description 08/03/2024 Refill [facility] ADULT DENTAL [address] [place] [address] Samuel Guaman, DDS [address] [place] [address] Dental abscess Social History Tobacco Use Types [...] andand doesn't have those molars either. 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 Guaman documented in this encounter Plan of Treatment Not on file documented as of this encounter Visit Diagnoses Diagnosis Dental abscess Periapical abscess without sinus documented in this encounter
[2025-03-20 15:04] VITALS: BP 120/66; PULSE 91; RESP 18; TEMP 36.2; O2SAT 95; BMI 32.3
--- NOTE | 2025-03-20 15:04 | A.OFFPC_ITS ---
Vital Signs 03/20/25 15:04 Height 5 ft 7 in Weight 206 lb 2 oz BMI 32.3 BP 120/66 Blood Pressure Location Lt brachial Position Sitting Respiration 18 Pulse 91 Pulse Source Pulse Oximeter Temp 97.1 F Temp Source Temporal Artery Scan Pulse Oximetry (%) 95 Oxygen Delivery Method Room Air Intake Visit Reasons: dm Facilities Flight Check Pilot Required: No Accompanied by: Self / Same As Patient Allergies nicotine Allergy (Intermediate, Verified 03/20/25 15:25) Rash metformin Adverse Reaction (Intermediate, Verified 03/20/25 15:25) stomach upset, diarrhea Medication List - Last Reconciled 03/20/25 by Amanda Raphael MD acetaminophen (Tylenol Extra Strength) 500 mg PO Q6H PRN 30 days albuterol sulfate 2.5 mg (3 mL) inhalation Q6H PRN 30 days atorvastatin 40 mg PO BEDTIME 90 days betamethasone, augmented 0.05 % 1 appl topical DAILY PRN 30 days blood sugar diagnostic (FreeStyle Lite Strips) 1 strip miscellaneous BID 90 days blood-glucose meter (FreeStyle Lite Meter kit) As directed bupropion HCl XL 150 mg PO QAM 90 days empagliflozin (Jardiance) 10 mg PO DAILY 90 days ibuprofen 800 mg PO Q8H PRN lancets As directed morphine ER (MS Contin) 15 mg PO Q12H 3 days nicotine 1 patch transdermal DAILY 28 days oxycodone-acetaminophen 5-325 mg 1 tab PO Q4-6H PRN 7 days progesterone micronized (Prometrium) 200 mg PO BEDTIME 10 days semaglutide (Ozempic) 2 mg (0.75 mL) subcut QWEEK 30 days sennosides (Senna Lax) 8.6 mg PO BEDTIME PRN 90 days umeclidinium-vilanterol 62.5-25 mcg/actuation (Anoro Ellipta) 1 inh inhalation DAILY 60 days Ventolin HFA 90 mcg/actuation (albuterol sulfate) 2 puffs inhalation Q6H PRN 30 days NS Tobacco use date assessed: 03/20/25 Dental Screening Dental Screen Date: 03/20/25 Did you have a dental visit in the last 12 months?: Yes Did you have a dental problem in the last 6 months where you did not have access to dental care?: No Was dental information given to patient?: Patient has dentist HPI HPI Comments History of Present Illness Details The patient is a 44-year-old female presenting with Type 2 Diabetes Mellitus and menstrual irregularities. Her diabetes management includes medications such as Jardiance and Ozempic, with a recent A1c level of 7.3%. The patient has been experiencing menstrual irregularities, with periods being unstable and sometimes absent for a month. She also has moderate major depression on bupropion and has hyperlipidemia on statins in which LDL is within goal. She has been on Provera and other medications to manage her menstrual cycle, but the irregularities persist. The patient also reports a history of depression, for which she is taking bupropion. Additionally, she experiences constipation, for which she uses Senna. [facility] Medical History MARÍA (generalized anxiety disorder) Right knee pain Microalbuminuria Heel spur Right elbow pain Hand numbness Mild asthma Dyslipidemia Diabetes mellitus Surgical History History of repair of rotator cuff Family History Father Diabetes Hypertension Kidney disease Mother Diabetes Fibromyalgia Brother No problems noted. Paternal Grandmother Stroke Social History Housing: Apartment Alcohol intake: current Alcohol intake frequency: holidays/special occasions only Alcohol type: hard liquor Patient Tobacco Use Status: Current everyday Tobacco user Tobacco use type: Cigarette Cigarettes Per Day: 8 e-Cigarette/Vaping Use: Never Used Second Hand Smoke Exposure: No service: No Current occupational status: employed Current occupational exposures/hazards: No Cognitive needs: No Hearing needs: No Vision needs: Yes (Glasses) Female Reproductive History Menstrual Age of Menarche: 13 Questionnaire PHQ-9 Over the last 2 weeks, how often have you been bothered by any of the following problems? 1. Little interest or pleasure in doing things: several days 2. Feeling down, depressed, or hopeless: several days 3. Trouble falling or staying asleep, or sleeping too much: several days 4. Feeling tired or having little energy: several days 5. Poor appetite or overeating: nearly every day 6. Feeling bad about yourself - or that you are a failure or have let yourself or your family down: nearly every day 7. Trouble concentrating on things, such as reading the newspaper or watching television: several days 8. Moving or speaking so slowly that other people could have noticed. Or the opposite - being so fidgety or restless that you have been moving around a lot more than usual: not at all 9. Thoughts that you would be better off or of hurting yourself in some way: not at all Total score: 11 Depression Screening Interpretation: Positive Depression Screening Follow-up: Existing condition, In treatment and Follow-up Visit Requested Depression Screening Done: Yes 09425 - PHQ-9 Billing: Yes Source: Developed by Drs. Isiah Garcia, Maria Bullard, Jude Todd and colleagues, with an educational amara from [employer]. Thrive Questionnaire Date Thrive assessed: 03/20/25 I am a: Patient What is your living situation today?: I have a steady place to live Within the past 12 months, did the food you bought not last and you didn't have the money to get more?: I choose not to answer this question Within the past 12 months, did you worry whether your food would run out before you got money to buy more?: I choose not to answer this question Do you have trouble paying for medicines?: No Do you have trouble getting transportation to medical appointments?: No Do you have trouble paying your heating and electricity bill?: No Do you have trouble taking care of your child, family member or friend?: No Do you have trouble with day-to-day activities such as bathing, preparing meals, shopping, managing finances, etc.?: No Are you currently unemployed and looking for a job?: I choose not to answer this question Are you interested in more education?: No Please select the resources that you would like help with: None Currently or been in a relationship where the following occur: No concerns reported THRIVE Score: 0 AUDIT C Alcohol Use Questionnaire (AUDIT-C) 1. How often do you have a drink containing alcohol?: Never Total Score: 0 Score Reviewed/Action Taken: No MARÍA-7 AMB Questionnaire MARÍA-7 Date MARÍA - 7 assessed: 03/20/25 Feeling nervous, anxious, or on edge: 3 = Nearly every day Not being able to stop or control worryin = Nearly every day Worrying too much about different things: 1 = Several days Trouble relaxin = Nearly every day Being so restless that it is hard to sit still: 1 = Several days Becoming easily annoyed or irritable: 1 = Several days Feeling afraid as if something awful might happen: 0 = Not at all Total MARÍA-7 score (0-4 normal; 5-9 mild; 10-14 moderate; 15-21 severe): 12 Source: Developed by Drs. Isiah Garcia, Maria Bullard, Jude Todd and colleagues, with an educational amara from [employer]. MARÍA-7 Assessment Billing MARÍA-7 Assessment Tool: MARÍA-7 Assessment 91190 Review of Systems Const All systems reviewed & are unremarkable except as noted in HPI and below Card Denies chest pain at rest, Denies chest pain with activity, Denies edema, Denies irregular heart rhythm, Denies claudication, Denies dyspnea, Denies dyspnea on exertion, Denies orthopnea, Denies paroxysmal nocturnal dyspnea and Denies slow heart rate Resp Denies cough, Denies dyspnea and Denies dyspnea on exertion GI Denies abdominal pain, Denies change in bowel habits, Denies excessive flatus, Denies nausea and Denies vomiting Physical exam (Primary Care) Vital Signs: Last Vital Signs Temp 97.1 F 03/20/25 15:04 Pulse 91 03/20/25 15:04 Resp 18 03/20/25 15:04 BP 120/66 03/20/25 15:04 Pulse Ox 95 03/20/25 15:04 Oxygen Delivery Method Room Air 03/20/25 15:04 BMI result Body Mass Index 32.3 BMI Assessment/Plan discussion: High BMI High, discussed plan: lifestyle, weight reduction, dietary and physical activity Tobacco/Smoking Status: Tobacco use Status Tobacco use date assessed 03/20/25 03/20/25 15:14 Patient Tobacco Use Status Current everyday Tobacco 03/20/25 15:06 Tobacco use type Cigarette 03/20/25 15:06 e-Cigarette/Vaping Use Never Used 03/20/25 15:06 PHQ-9: PHQ-9 Score PHQ-9: Total score 11 03/20/25 15:29 Depression Screening Interpretation: Positive Depression Screening Follow-up: Existing condition, In treatment and Follow-up Visit Requested Thrive Assessment: Date of Thrive Assessment Date Thrive assessed 03/20/25 03/20/25 15:14 Currently or been in a relationship where the following occur: No concerns reported Resp Effort & Inspection: normal respiratory effort Auscultation: clear to auscultation bilaterally Cardio Jugular venous distension: no JVD Rate: regular rate Rhythm: regular rhythm Heart sounds: S1 normal heart sound present and S2 normal heart sound present Extrem General: Yes full ROM Results AMB Hemoglobin A1c AMB Hemoglobin A1c 7.3 % Last Edit by Erin Chapman CMA on 03/20/25 15:30 Results Reviewed Results Reviewed: Laboratory Last Values Hgb A1c (Clinic) 7.3 % (4.0-6.0) H 03/20/25 15:23 Coding Level of Care Code Est Pt Level 4 (48494) Complex EM visit Add On G2211 Diagnoses Moderate major depression F32.1 Type 2 diabetes mellitus without complication, without long-term current use of insulin E11.9 Diabetes mellitus type: type 2 Diabetes mellitus penitentiary insulin use: without penitentiary use Diabetes mellitus complication status: without complication Dyslipidemia E78.5 Abnormal uterine bleeding (AUB) N93.9 Additional Codes MARÍA-7 Assessment Billing - MARÍA-7 Assessment Tool: MARÍA-7 Assessment 64007 ([id number]) PHQ-9 - 48496 - PHQ-9 Billing: Yes ([id number]) Time Spent (min) 22 Assessment & Plan Assessment & Plan (1) Moderate major depression: Code(s): F32.1 - Major depressive disorder, single episode, moderate Category: Medical (2) Diabetes mellitus: Code(s): E11.9 - Type 2 diabetes mellitus without complications Category: Medical Qualifiers: Diabetes mellitus type: type 2 Diabetes mellitus penitentiary insulin use: without penitentiary use Diabetes mellitus complication status: without complication Qualified Code(s): E11.9 - Type 2 diabetes mellitus without complications (3) Dyslipidemia: Code(s): E78.5 - Hyperlipidemia, unspecified Category: Medical (4) Abnormal uterine bleeding (AUB): Code(s): N93.9 - Abnormal uterine and vaginal bleeding, unspecified Category: Medical Plan The plan for managing Type 2 Diabetes Mellitus includes increasing the Jardiance dosage to 25 mg due to the current use of Ozempic and the A1c level of 7.3%. For menstrual irregularities, the patient will continue with hormonal treatments, and adjustments may be made based on response. The patient's depression is managed with bupropion, and no changes were discussed during this visit. Constipation is managed with Senna, and no further interventions were discussed. Patient was informed and verbally consented to the use of an ambient scribe for clinic note documentation during this visit. Orders: Orders AMB Hemoglobin A1c 03/20/25 Z13.9 - Encounter for screening, unspecified Lipid Panel 4 Months E78.5 - Hyperlipidemia, unspecified Comprehensive Hydes. Panel Fast 4 Months E11.9 - Type 2 diabetes mellitus without complications Microalbumin, Random (w Creat) 4 Months R80.9 - Proteinuria, unspecified Vitamin D 25-OH Total 4 Months E55.9 - Vitamin D deficiency, unspecified Medications: New fluconazole 150 mg PO Q3D 2 tabs 0RF 2 doses empagliflozin (Jardiance) 25 mg PO DAILY 90 tabs 1RF 90 days Discontinued empagliflozin (Jardiance) Discontinued Reason: Order 10 mg PO DAILY 90 days 90 tabs 1RF
== END 2025-03-20 15:46 | disposition home or self-care (01) ==
LOC: HO.HMCH 14:58
PROVIDERS: PCP Internal Medicine; Visit Provider Internal Medicine
DX: Z13.9 Encounter for screening, unspecified (principal)

== ENCOUNTER → 2025-03-20 14:57 | Outpatient (BNVA) | payer OTHER, SELFPAY | PROVIDERS: PCP Internal Medicine; Visit Provider Internal Medicine | DX: E11.9 Type 2 diabetes mellitus without complications (principal); F32.A Depression, unspecified; E78.5 Hyperlipidemia, unspecified; F32.1 Major depressive disorder, single episode, moderate; N93.9 Abnormal uterine and vaginal bleeding, unspecified; R80.9 Proteinuria, unspecified; E55.9 Vitamin D deficiency, unspecified | CPT/HCPCS: 83036; 96127; 99212 ==

== ENCOUNTER 2025-03-25 08:09 | Outpatient (AMB) | payer OTHER, SELFPAY ==
--- OUTSIDE RECORDS SUMMARY | 2025-03-25 08:15 | XMS_ITS | Encounter Summary ---
Author Organization [employer] Address [address] [facility] [address] [place] [address] Care Team Providers Care Property Accountant Name Role Phone Chanda Paredes OD Primary Care Provider [phone] Encounter Details Date Type Department Care Team (Latest Contact Info) Description 11/05/2021 Abstract [facility] CONVERSIONS Dental, Provider, DDS Social History Tobacco Use Types Packs/Day Years Used Date Smoking Tobacco: Never Assessed Comments Unknown Sex and Gender Information Value Date Recorded Sex Assigned at Female 05/30/2022 10:16 AM EDT Legal Sex Female 10:16 AM EDT Gender Identity Female 05/30/2022 10:16 AM EDT Sexual Orientation Straight 05/30/2022 10 :16 AM EDT documented as of this encounter Plan of Treatment Not on file documented as of this encounter Visit Diagnoses Not on filedocumented in this encounter Care Teams Property Accountant Relationship Specialty Start Date End Date Chanda Paredes OD [address] [place] [address] PCP - General Optometry 12/21/16 08/07/23 documented as of this encounter
--- OUTSIDE RECORDS SUMMARY | 2025-03-25 08:15 | XMS_ITS | Clinical Summary ---
Author Organization [facility] Address [address] [place] [address] Care Team Providers Care Beef Ribber Name Role Phone Amanda Horan MD Primary Care Provider [phone] Allergies No known active allergies Medications Acetaminophen [...] Exam 10/26/2021 Influenza Vaccine (#1) 2025 [place] [address] [facility] [place] [address] Care Teams Beef Ribber Relationship Specialty Start Date End Date Amanda Horan MD [address] [place], [place] PCP - General Internal Medicine 10/25/21
--- OUTSIDE RECORDS SUMMARY | 2025-03-25 08:15 | XMS_ITS | Encounter Summary ---
Author Organization [employer] Address [address] [facility] 7t [place] [address] Care Team Providers Care Frame Opener Name Role Phone Chanda Paredes OD Primary Care Provider [phone] Encounter Details Date Type Department Care Team (Latest Contact Info) Description 02/01/2019 Abstract [facility] CONVERSIONS Dental, Provider, DDS Social History [...] on filedocumented in this encounter Care Teams Frame Opener Relationship Specialty Start Date End Date Chanda Paredes OD [address] [place] [address] PCP - General Optometry 12/21/16 08/07/23 documented as of this encounter
--- OUTSIDE RECORDS SUMMARY | 2025-03-25 08:15 | XMS_ITS | Clinical Summary ---
Author Organization [facility] Address [address] [address] Phone Care Team Providers Care Campus Ambassador Name Role Phone Amanda Horan MD Primary [...] Payer ID:Not on file Group ID:[id number] # [id number] Type:Indemnity Address: [address] [address] Care Teams Campus Ambassador Relationship Specialty Start Date End Date Amanda Horan MD [address] [place] [address] PCP - General Internal Medicine 08/31/20 Additional Source Comments The information contained in this document represents components of the legal health record. It is not the complete legal health record.[facility]
--- OUTSIDE RECORDS SUMMARY | 2025-03-25 08:15 | XMS_ITS | Encounter Summary ---
Author Organization [employer] Address [address] [facility] 7t [place] [address] Care Team Providers Care Cork Insulation Setter Name Role Phone Unavailable Primary Care Provider Unavailabl e Reason for Visit * Reason Onset Date Comments mandibular partial tx planned not requested 10/2024 Encounter Details Date Type Department Care Team ([facility] Contact Info) Description 08/03/2024 Refill [facility] ADULT DENTAL [address] [place] [address] Samuel Guaman, DDS [address] [place] [address] Dental abscess Social History Tobacco Use Types [...] doesn't have those molars either. 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 Guaman documented in this encounter Plan of Treatment Not on file documented as of this encounter Visit Diagnoses Diagnosis Dental abscess Periapical abscess without sinus documented in this encounter
--- OUTSIDE RECORDS SUMMARY | 2025-03-25 08:15 | XMS_ITS | Clinical Summary ---
Author Organization [employer] Address 75 [facility] 7t [place] [address] Care Team Providers Care Hedis Manager Name Role Phone Unavailable Primary Care [...] 5 mg by mouth at bedtime. 08/09/19 Active buPROPion XL (Wellbutrin XL) 150 MG 24 hr tablet Take 150 mg by mouth in the morning. 08/12/19 Active Blood Glucose Monitoring Suppl (FreeStyle Lite) w/Device kit as directed 09/16/19 Active Senna-Time 8.6 MG tablet TAKE 1 TABLET BY MOUTH EVERY DAY AT BEDTIME NEEDED FOR CONSTIPATION 08/03/19 Active Ozempic, 2 MG/DOSE, 8 MG/3ML solution pen-injector INJECT 2MG SUBCUTANEOUSLY EVERY WEEK 09/26/19 Active pioglitazone (Actos) 30 MG tablet Take 1 tablet by mouth Once per day. 06/10/20 Active Active Problems Problem Noted Date Diagnosed Date Partially edentulous mandible 08/23/2024 Dental plaque 07/10/2024 Fractured dental jehovah's witness with loss of materi al 07/06/2023 Dental calculus 06/05/2023 Dental abscess 06/05/2023 Missing teeth, acquired 06/05/2023 Dyslipidemia 10/26/2021 Type 2 diabetes mellitus wit h diabetic chronic kidney disease 10/26/2021 Asthma 01/18/2012 Depressive disorder 01/18/2012 Encounters Date Type Department Care Team Description 01/10/2025 10:00 AM EDT Office Visit [facility] ADULT DENTAL [address] [place] [address] Johana Campoverde Dental plaque (Primary Dx); Missing teeth, acquired; Partially edentulous mandible, unspecified edentulism class from [...] Sign Reading Time Taken Comments Blood Pressure 124/72 01/10/2025 10:03 AM EDT Pulse 100 12/21/2023 2:49 PM EDT Temperature - - Respiratory Rate - - Oxygen Saturation - - Inhaled Oxygen Concentration - - Weight - - Height - - Body Mass Index - - Plan of Treatment Health Maintenance Due Date Last Done Comments Depression Screening 1981 Diabetes: Hemoglobin A1C 1981 HIV Screening 1981 Lipid Panel 1981 SDOH Screening 1981 Disability Screening 1981 Diabetes: Foot Exam 1991 Alcohol/Substance Use Screening 1993 Family Planning (PISQ) 1996 HPV Vaccines (1 - 3-dose series) 1996 Hepatitis C Screening 1999 Hepatitis B Vaccines (1 of 3 - 19+ 3-dose series) 2000 Pneumococcal Vaccine: Pediatrics (0 to 5 Years) and At-Risk Patients (6 to 49) Years (1 of 2 - PCV) 2000 Pap Smear 2002 Cervical Cancer Screening 2011 HPV/Cotest 2011 Mammogram 2021 COVID-19 Vaccine ( - 2023- season) 2024 02/09/2021, 01/19/2021 Dental X-Ray: Full Mouth 11/06/2024 11/05/2021, 11/07/2016 Dental Oral Exam 01/09/2025 07/10/2024, 12/2022, 11/05/2021, Additional history exists Influenza Vaccine (#1) 2025 , 06/29/2023, 05/18/2022, Additional history exists Dental Prophylaxis 07/13/2025 01/10/2025, 1 09/10/2023, 12/21/2023, Additional history exists Dental X-Ray: Bitewings 07/24/2025 07/23/20 24, 07/10/2024, 06/18/2024, Additional history exists Tobacco Screening 01/10/2026 01/10/2025 DTaP/Tdap/Td Vaccines (2 - Td or Tdap) 08/29/2026 08/29/2016, 10/10/2008 Eye Exam 10/03/2026 10/03/2024, 03/0 12/2024, 10/03/2024, Additional history exists Zoster Vaccines [...] patient's age to complete this topic Meningococcal B Vaccine Aged Out No l onger eligible based on patient's age to complete [...] Procedure Name Priority Date/Time Associated Diagnosis Comments 30,19,18 MANDIBULAR PARTIAL DENTURE - RESIN BASE (INCLUDING, RETENTIVE/CLASPING MATERIALS, RESTS, AND TEETH) Routine 01/10/2025 10:00 AM EDT CASE PRESENTATION, DETAILED AND EXTENSIVE TREATMENT PLANNING Routine 01/10/2025 10:00 AM EDT Dental plaque Missing teeth, acquired ORAL HYGIENE INSTRUCTIONS Routine 01/10/2025 10:00 AM EDT Dental plaque Missing teeth, acquired PROPHYLAXIS - ADULT Routine 01/10/2025 1 0:00 AM EDT Dental plaque BITEWING - SINGLE RADIOGRAPHIC IMAGE Routine 07/23/2024 12:30 PM EST PERIODIC ORAL EVALUATION - ESTABLISHED PATIENT Routine 07/10/2024 3:00 PM EST INTRAORAL - COMPLETE SERIES OF RADIOGRAPHIC IMAGES Routine 11/05/2021 12:00 AM EDT from Last 3 Months or Most Recently Relevant to Health Maintenance Insurance [facility] [place]
--- NOTE | 2025-03-25 08:16 | A.OFFVIS_ITS ---
Intake Visit Reasons: 3 month Medication follow up Accompanied by: Self / Same As Patient Allergies nicotine Allergy (Intermediate, Verified 03/25/25 08:18) Rash metformin Adverse Reaction (Intermediate, Verified 03/25/25 08:18) stomach upset, diarrhea HPI Comments Details: Presenting for follow-up regarding Prometrium cyclicly. The patient took her pills 3 months ago day 1-15 had her menstrual cycle few days afterwards and had confused but when to take them again did not take her pills since then [facility] Medical History MARÍA (generalized anxiety disorder) Right knee pain Microalbuminuria Heel spur Right elbow pain Hand numbness Mild asthma Dyslipidemia Diabetes mellitus Surgical History History of repair of rotator cuff Family History Father Diabetes Hypertension Kidney disease Mother Diabetes Fibromyalgia Brother No problems noted. Paternal Grandmother Stroke Social History Housing: Apartment Alcohol intake: current Alcohol intake frequency: holidays/special occasions only Alcohol type: hard liquor Patient Tobacco Use Status: Current everyday Tobacco user Tobacco use type: Cigarette Cigarettes Per Day: 8 e-Cigarette/Vaping Use: Never Used Second Hand Smoke Exposure: No service: No Current occupational status: employed Current occupational exposures/hazards: No Cognitive needs: No Hearing needs: No Vision needs: Yes (Glasses) Female Reproductive History Menstrual Age of Menarche: 13 Review of Systems Const All systems reviewed & are unremarkable except as noted in HPI and below Reports as per HPI and Reports no additional complaints GI Reports no additional complaints Reports no additional complaints Results AMB Test Urine AMB Test Urine Negative Last Edit by Diane Momin CMA on 08:36 Assessment & Plan Assessment & Plan (1) Anovulatory amenorrhea: Code(s): N91.2 - Amenorrhea, unspecified Category: Medical Plan: Explained with the patient to take Prometrium 200 mg p.o. q.d. day 15-25 for 3 more months. Instructions given the patient to schedule a three-month follow-up appointment. All questions answered, the patient verbalized understanding. Orders: Orders AMB HCG Urine Test Today Z32.02 - Encounter for test, re sult negative Coding Level of Care Code Est Pt Level 3 (80983) Diagnoses Anovulatory amenorrhea N91.2
== END 2025-03-25 08:38 | disposition home or self-care (01) ==
LOC: HO.HWS 08:09
PROVIDERS: PCP Internal Medicine; Visit Provider Obstetrics & Gynecology
DX: N91.2 Amenorrhea, unspecified (principal); Z32.02 Encounter for pregnancy test, result negative
CPT/HCPCS: 99213

== ENCOUNTER → 2025-03-25 08:09 | Outpatient (BNVA) | payer OTHER, SELFPAY | PROVIDERS: PCP Internal Medicine; Visit Provider Obstetrics & Gynecology | DX: N91.2 Amenorrhea, unspecified (principal) | CPT/HCPCS: 81025; 99212 ==

== ENCOUNTER 2025-04-11 10:07 | Outpatient (REF) | payer OTHER, SELFPAY ==
--- OUTSIDE RECORDS SUMMARY | 2025-04-11 11:29 | XMS_ITS | Encounter Summary ---
Author Organization [employer] Address 75 [facility] 7 [place] [address] Care Team Providers Care Marketing Automation Specialist Name Role Phone Chanda Paredes OD Primary Care Provider [phone] Encounter Details Date Type Department Care Team [...] on filedocumented in this encounter Care Teams Marketing Automation Specialist Relationship Specialty Start Date End Date Chanda Paredes OD [address] [place] [address] PCP - General Optometry 12/21/16 08/07/23 documented as of this encounter
--- OUTSIDE RECORDS SUMMARY | 2025-04-11 11:29 | XMS_ITS | Clinical Summary ---
Author Organization [employer] Address 75 [facility] 7t [place] [address] Care Team Providers Care Radio Technician Name Role Phone Unavailable Primary Care [...] mandible 08/23/2024 Dental plaque 07/10/2024 Fractured dental church with loss of materi al 07/06/2023 Dental calculus 06/05/2023 Dental abscess 06/05/2023 Missing teeth, acquired 06/05/2023 Dyslipidemia 10/26/2021 Type 2 diabetes mellitus wit h diabetic chronic kidney disease 10/26/2021 Asthma 01/18/2012 Depressive disorder 01/18/2012 Encounters Date Type Department Care Team Description 01/10/2025 10:00 AM EDT Office Visit [facility] ADULT DENTAL [address] [place] [address] Johana Campoverde Dental plaque (Primary Dx); Missing [...] Cancer Screening 2011 HPV/Cotest 2011 Mammogram 2021 Dental X-Ray: Full Mouth 11/06/2024 11/05/2021, 11/0 07/2016 Dental Oral Exam 01/09/2025 07/10/2024, 12/2022, 11/05/2021, Additional history exists COVID-19 Vaccine ( season) 2025 02/09/2021, 01/19/2021 Influenza Vaccine (#1) 2025 , 06/29/2023, 05/18/2022, [...] Most Recently Relevant to Health Maintenance Insurance [facility] [place]
--- OUTSIDE RECORDS SUMMARY | 2025-04-11 11:29 | XMS_ITS | Encounter Summary ---
Author Organization [employer] Address 75 [facility] 7t [place] [address] Care Team Providers Care Director Of Land Acquisition Name Role Phone Unavailable Primary Care Provider Unavailabl e Reason for Visit * Reason Onset Date Comments mandibular partial tx planned not requested 10/2024 Encounter Details Date Type Department Care Team ([facility] Contact Info) Description 08/03/2024 Refill [facility] ADULT DENTAL [address] [place] [address] Samuel Guaman, DDS [address] [place] [address] Dental abscess Social History Tobacco Use Types [...] doesn't have those molars either. 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 Guaman documented in this encounter Plan of Treatment Not on file documented as of this encounter Visit Diagnoses Diagnosis Dental abscess Periapical abscess without sinus documented in this encounter
--- OUTSIDE RECORDS SUMMARY | 2025-04-11 11:29 | XMS_ITS | Clinical Summary ---
Author Organization [facility] Address [address] [address] Phone Care Team Providers Care Diamond Cutter Name Role Phone Amanda Horan MD Primary [...] Payer ID:Not on file Group ID:FAX # [phone] Type:Indemnity Address: [address] [address] Care Teams Diamond Cutter Relationship Specialty Start Date End Date Amanda Horan MD [address] [place] [address] PCP - General Internal Medicine 08/31/20 Additional Source Comments The information contained in this document represents components of the legal health record. It is not the complete legal health record.[facility]
--- OUTSIDE RECORDS SUMMARY | 2025-04-11 11:29 | XMS_ITS | Clinical Summary ---
Author Organization [facility] Address [address] [place] [address] Care Team Providers Care Edi Manager Name Role Phone Amanda Horan MD Primary Care Provider [phone] Allergies No known active allergies Medications Acetaminophen [...] Exam 10/26/2021 Influenza Vaccine (#1) 2025 Insurance [facility] Medicaid Care Teams Edi Manager Relationship Specialty Start Date End Date Amanda Horan MD [address] [place], [place] PCP - General Internal Medicine 10/25/21
--- OUTSIDE RECORDS SUMMARY | 2025-04-11 11:29 | XMS_ITS | Encounter Summary ---
Author Organization [employer] Address 75 [facility] 7[address] [place] [address] Care Team Providers Care Airplane Tube Builder Name Role Phone Chanda Paredes OD Primary Care Provider [phone] Encounter Details Date Type Department Care Team (Latest Contact Info) Description 02/01/2019 Abstract [facility] CONVERSIONS Dental, Provider, DDS Social History [...] on filedocumented in this encounter Care Teams Airplane Tube Builder Relationship Specialty Start Date End Date Chanda Paredes OD [address] [place] [address] PCP - General Optometry 12/21/16 08/07/23 documented as of this encounter
[2025-04-12 06:48] LABS: Follicle Stimulating Hormone 43.8 mIU/mL
== END 2025-04-11 10:08 | disposition home or self-care (01) ==
LOC: HO.LAB 10:07
PROVIDERS: PCP Internal Medicine; Visit Provider Obstetrics & Gynecology
DX: N91.2 Amenorrhea, unspecified (principal)
CPT/HCPCS: 36415; 83001; 83002

== ENCOUNTER 2025-04-28 14:05 | Outpatient (AMB) | payer OTHER, SELFPAY ==
--- NOTE | 2025-04-28 14:54 | MHC.OFFVIS ---
Intake Visit Reasons: Labs results Allergies nicotine Allergy (Intermediate, Verified 03/25/25 08:18) Rash metformin Adverse Reaction (Intermediate, Verified 03/25/25 08:18) stomach upset, diarrhea HPI Comments Details: The patient is schedule telehealth visit for follow-up FSH/LH 43.3/31.7 PFSH Medical History MARÍA (generalized anxiety disorder) Right knee pain Microalbuminuria Heel spur Right elbow pain Hand numbness Mild asthma Dyslipidemia Diabetes mellitus Surgical History History of repair of rotator cuff Family History Father Diabetes Hypertension Kidney disease Mother Diabetes Fibromyalgia Brother No problems noted. Paternal Grandmother Stroke Social History Housing: Apartment Alcohol intake: current Alcohol intake frequency: holidays/special occasions only Alcohol type: hard liquor Patient Tobacco Use Status: Current everyday Tobacco user Tobacco use type: Cigarette Cigarettes Per Day: 8 e-Cigarette/Vaping Use: Never Used Second Hand Smoke Exposure: No service: No Current occupational status: employed Current occupational exposures/hazards: No Cognitive needs: No Hearing needs: No Vision needs: Yes (Glasses) Female Reproductive History Menstrual Age of Menarche: 13 Review of Systems Const All systems reviewed & are unremarkable except as noted in HPI and below Reports as per HPI and Reports no additional complaints GI Reports no additional complaints Reports no additional complaints Telehealth Telehealth Telehealth Platform: Tipser Location of provider rendering services: practice address Location of patient: address on file Patient Identification confirmed using: Name, : Yes Telehealth method: video Patient verbally consented to treatment: Yes Patient verbally consented to billing insurance company: Yes Patient informed of any privacy concerns related to visit: Yes Minutes spent on Phone/Video with Pt.: 5 Assessment & Plan Assessment & Plan (1) Menopause: Code(s): Z78.0 - Asymptomatic menopausal state Category: Medical Plan: Discussed with the patient the diagnosis menopause FSH LH are in the menopausal region the patient has been amenorrheic. Instructions given the patient to call if bleeding occurs, will proceed with endometrial sampling to rule out endometrial pathology including endometrial hyperplasia and/or malignancy. All questions answered, the patient verbalized understanding. I spent a total of 20 minutes reviewing the chart, talking to the patient via video and documenting in the medical record. Coding Level of Care Code Tele Est Pt Level 3 ([address]) Diagnoses Menopause Z78.0
--- OUTSIDE RECORDS SUMMARY | 2025-04-28 15:53 | XMS_ITS | Clinical Summary ---
Author Organization [employer] Address 75 [facility] 7t [place] [address] Care Team Providers Care Will Call Clerk Name Role Phone Unavailable Primary Care Provider [...] mandible 08/23/2024 Dental plaque 07/10/2024 Fractured dental congregation with loss of materi al 07/06/2023 Dental calculus 06/05/2023 Dental abscess 06/05/2023 Missing teeth, acquired 06/05/2023 Dyslipidemia 10/26/2021 Type 2 diabetes mellitus wit h diabetic chronic kidney disease 10/26/2021 Asthma 01/18/2012 Depressive disorder 01/18/2012 Family History Medical History Relation Name Comments [...] 12/2022, 11/05/2021, Additional history exists COVID-19 Vaccine (2024- season) 2025 02/09/2021, 01/19/2021 Influenza Vaccine (#1) 2025 , 06/29/2023, 05/18/2022, Additional history exists Dental Prophylaxis 07/13/2025 01/10/2025, 1 09/10/2023, 12/21/2023, Additional history exists Dental X-Ray: Bitewings 07/24/2025 07/23/20 24, 07/10/2024, 06/18/2024, Additional history exists Tobacco Screening 01/10/2026 01/10/2025 DTaP/Tdap/Td Vaccines (2 - Td or Tdap) 08/29/2026 08/29/2016, 10/10/2008 Eye Exam 10/03/2026 10/03/2024, 0312/2024, 10/03/2024, Additional history exists Zoster Vaccines (1 [...] Procedure Name Priority Date/Time Associated Diagnosis Comments PROPHYLAXIS - ADULT Routine 01/10/2025 1 0:00 AM EDT Dental plaque BITEWING - SINGLE RADIOGRAPHIC IMAGE Routine 07/23/2024 12:30 PM EST PERIODIC ORAL EVALUATION - ESTABLISHED PATIENT Routine 07/10/2024 3:00 PM EST INTRAORAL - COMPLETE SERIES OF RADIOGRAPHIC IMAGES Routine 11/05/2021 12:00 AM EDT from Last 3 Months or Most Recently Relevant to Health Maintenance [place] [address] [address] ([facility]) DENTAL-[facility] MEDICAID STAND ADULT
--- OUTSIDE RECORDS SUMMARY | 2025-04-28 15:53 | XMS_ITS | Clinical Summary ---
Author Organization [facility] Address [address] [address] Phone Care Team Providers Care Inside Sales Person Name Role Phone Amanda Horan MD Primary [...] Payer ID:Not on file Group ID:FAX # [phone] Type:Indemnity Address: [address] [address] Care Teams Inside Sales Person Relationship Specialty Start Date End Date Amanda Horan MD [address] [place] [address] PCP - General Internal Medicine 08/31/20 Additional Source Comments The information contained in this document represents components of the legal health record. It is not the complete legal health record.[facility]
--- OUTSIDE RECORDS SUMMARY | 2025-04-28 15:53 | XMS_ITS | Encounter Summary ---
Author Organization [employer] Address 75 [facility] 7t [place] [address] Care Team Providers Care Mechanical Oxidizer Name Role Phone Unavailable Primary Care Provider Unavailabl e Reason for Visit * Reason Onset Date Comments mandibular partial tx planned not requested 10/2024 Encounter Details Date Type Department Care Team ([facility] Contact Info) Description 08/03/2024 Refill [facility] ADULT DENTAL [address] [place] [address] Samuel Guaman, DDS [address] [place] [address] Dental abscess Social History Tobacco Use Types [...] andand doesn't have those molars either. 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 Guaman documented in this encounter Plan of Treatment Not on file documented as of this encounter Visit Diagnoses Diagnosis Dental abscess Periapical abscess without sinus documented in this encounter
--- OUTSIDE RECORDS SUMMARY | 2025-04-28 15:53 | XMS_ITS | Encounter Summary ---
Author Organization [employer] Address [address] [facility] 7 [place] [address] Care Team Providers Care Legal Technician Name Role Phone Chanda Paredes OD Primary Care Provider [phone] Encounter Details Date Type Department Care Team [...] on filedocumented in this encounter Care Teams Legal Technician Relationship Specialty Start Date End Date Chanda Paredes OD [address] [place] [address] PCP - General Optometry 12/21/16 08/07/23 documented as of this encounter
--- OUTSIDE RECORDS SUMMARY | 2025-04-28 15:53 | XMS_ITS | Encounter Summary ---
Author Organization [employer] Address 75 [facility] [address] [place] [address] Care Team Providers Care Mirror Maker Name Role Phone Chanda Paredes OD Primary Care Provider [phone] Encounter Details Date Type Department Care Team (Latest Contact Info) Description 02/01/2019 Abstract [facility] CONVERSIONS Dental, Provider, DDS Social [...] on filedocumented in this encounter Care Teams Mirror Maker Relationship Specialty Start Date End Date Chanda Paredes OD [address] [place] [address] PCP - General Optometry 12/21/16 08/07/23 documented as of this encounter
== END 2025-04-28 15:14 | disposition home or self-care (01) ==
LOC: HO.HWS 14:05
PROVIDERS: PCP Internal Medicine; Visit Provider Obstetrics & Gynecology
DX: Z78.0 Asymptomatic menopausal state (principal)
CPT/HCPCS: 99213

== ENCOUNTER 2025-05-27 10:43 | Outpatient (REF) | payer OTHER, SELFPAY ==
--- OUTSIDE RECORDS SUMMARY | 2025-05-27 15:12 | XMS_ITS | Clinical Summary ---
Author Organization [facility] Address [address] [address] Phone Care Team Providers Care Home Economist Consumer Service Name Role Phone Amanda Horan MD Primary [...] Payer ID:Not on file Group ID:FAX # [phone] Type:Indemnity Address: [address] [place] [address] [address] Care Teams Home Economist Consumer Service Relationship Specialty Start Date End Date Amanda Horan MD [address] [place] [address] PCP - General Internal Medicine 08/31/20 Additional Source Comments The information contained in this document represents components of the legal health record. It is not the complete legal health record.[facility]
--- OUTSIDE RECORDS SUMMARY | 2025-05-27 15:12 | XMS_ITS | Clinical Summary ---
Author Organization [facility] Address [address] [place] [address] Care Team Providers Care Pick Up Name Role Phone Amanda Horan MD Primary Care Provider [phone] Allergies No known active allergies Medications Acetaminophen [...] Exam 10/26/2021 Influenza Vaccine (#1) 2025 Insurance [facility] Medicaid Care Teams Pick Up Relationship Specialty Start Date End Date Amanda Horan MD [address] [place], [place] PCP - General Internal Medicine 10/25/21
== END 2025-05-27 10:44 | disposition home or self-care (01) ==
LOC: HO.LNP 10:43
PROVIDERS: PCP Internal Medicine; Visit Provider Obstetrics & Gynecology
DX: N93.9 Abnormal uterine and vaginal bleeding, unspecified (principal); Z32.02 Encounter for pregnancy test, result negative
CPT/HCPCS: 58100; 81025; 88305

== ENCOUNTER 2025-05-27 10:43 | Outpatient (AMB) | payer OTHER, SELFPAY ==
--- NOTE | 2025-05-27 10:51 | MHC.OFFVIS ---
Intake Visit Reasons: EMB Chemical Operations Specialist Required: Yes Chemical Operations Specialist Language: Pattern Grader Cutter Services: Chemical Operations Specialist Present (in person) Allergies nicotine Allergy (Intermediate, Verified 05/27/25 11:03) Rash metformin Adverse Reaction (Intermediate, Verified 05/27/25 11:03) stomach upset, diarrhea HPI Comments Details: Presenting for EMB [facility] Medical History MARÍA (generalized anxiety disorder) Right knee pain Microalbuminuria Heel spur Right elbow pain Hand numbness Mild asthma Dyslipidemia Diabetes mellitus Surgical History History of repair of rotator cuff Family History Father Diabetes Hypertension Kidney disease Mother Diabetes Fibromyalgia Brother No problems noted. Paternal Grandmother Stroke Social History Housing: Apartment Alcohol intake: current Alcohol intake frequency: holidays/special occasions only Alcohol type: hard liquor Patient Tobacco Use Status: Current everyday Tobacco user Tobacco use type: Cigarette Cigarettes Per Day: 8 e-Cigarette/Vaping Use: Never Used Second Hand Smoke Exposure: No service: No Current occupational status: employed Current occupational exposures/hazards: No Cognitive needs: No Hearing needs: No Vision needs: Yes (Glasses) Female Reproductive History Menstrual Age of Menarche: 13 Review of Systems Const All systems reviewed & are unremarkable except as noted in HPI and below Reports as per HPI and Reports no additional complaints GI Reports no additional complaints Reports no additional complaints Office Procedures Endometrial Biopsy Details: The patient was counseled regarding the indication and benefits of endometrial sampling to rule out endometrial pathology including not limited to endometrial hyperplasia or endometrial cancer and others; The alternatives (Either do nothing vs. hysteroscopy D&C) & the risks were discussed with the patient including but not limited: pain, uterine perforation, bleeding, infection, possible injury to bladder, bowel, ureter, possible need for blood transfusion with all its possible risks. The patient verbalized understanding all questions answered and signed consent. Urine test done in the office was negative The patient was placed into the dorsal lithotomy position; a speculum was inserted in the vagina. Using aseptic technique for the procedure, the cervix was cleansed with Betadine. The anterior lip of the cervix was grasped with a single tooth tenaculum. The uterus was sounded to 7 cm with a 4 mm Pipelle was used. Tissues samples were obtained and placed in formalin, in a patient labeled container and sent to the pathology department. At the end of the procedure, there was minimal bleeding noted The patient tolerated the procedure well and was discharged in good condition with the following instructions: Nothing in the vagina until the bleeding stops. No sex until the bleeding stops, to call if any of the following occurs: fever (>100.4), flu-like symptoms, abdominal pain, heavy bleeding, four smelling vaginal discharge. The patient was instructed to schedule a Follow up appointment in 2 weeks to discuss pathology results of the biopsy and treatment options. This note was generated with a voice recognition program. Some errors may have been overlooked during the review of this note. Sometimes these errors may affect the content or meaning of a given sentence. [id number] Biopsy Assessment & Plan Assessment & Plan (1) Abnormal uterine bleeding (AUB): Code(s): N93.9 - Abnormal uterine and vaginal bleeding, unspecified Category: Medical Plan: EMB done, see procedure note Orders: Orders AMB HCG Urine Test Today Z32.02 - Encounter for test, result negative AMB Endometrial Biopsy Today N93.9 - Abnormal uterine and vaginal bleeding, unspecified Coding Level of Care Code Procedure Only Diagnoses Abnormal uterine bleeding (AUB) N93.9 CPT Codes Endometrial Biopsy - CPT: 89534-Wwayhsjalim Biopsy ([id number])
--- OUTSIDE RECORDS SUMMARY | 2025-05-27 13:40 | XMS_ITS | Encounter Summary ---
Author Organization [employer] Address [address] [facility] 7t [place] [address] Care Team Providers Care Case Finishing Machine Adjuster Name Role Phone Unavailable Primary Care Provider Unavailabl e Reason for Visit * Reason Onset Date Comments mandibular partial tx planned not requested 10/2024 Encounter Details Date Type Department Care Team ([facility] Contact Info) Description 08/03/2024 Refill [facility] ADULT DENTAL [address] [place] [address] Samuel Guaman, DDS [address] [place] [address] Dental abscess Social History Tobacco Use Types [...] doesn't have those molars either. For front edger pls reach out to patient for scheduling DR * Telephone Encounter - Ildefonso Encarnacion DMD - 08/05/2024 8:21 AM EST Please follow up with Dr. Guaman documented in this encounter Plan of Treatment Not on file documented as of this encounter Visit Diagnoses Diagnosis Dental abscess Periapical abscess without sinus documented in this encounter
--- OUTSIDE RECORDS SUMMARY | 2025-05-27 13:41 | XMS_ITS | Encounter Summary ---
Author Organization [employer] Address [address] [facility] 7 [place] [address] Care Team Providers Care Air/Ocean Export Clerk Name Role Phone Chanda Paredes OD Primary Care Provider [phone] Encounter Details Date Type Department Care Team [...] on filedocumented in this encounter Care Teams Air/Ocean Export Clerk Relationship Specialty Start Date End Date Chanda Paredes OD [address] [place] [address] PCP - General Optometry 12/21/16 08/07/23 documented as of this encounter
--- OUTSIDE RECORDS SUMMARY | 2025-05-27 13:41 | XMS_ITS | Encounter Summary ---
Author Organization [employer] Address [address] [facility] 7t [place] [address] Care Team Providers Care Transportation Program Director Name Role Phone Chanda Paredes OD Primary Care Provider [phone] Encounter Details Date Type Department Care Team (Latest Contact Info) Description 02/01/2019 Abstract [facility] CONVERSIONS Dental, Provider, DDS Social History [...] on filedocumented in this encounter Care Teams Transportation Program Director Relationship Specialty Start Date End Date Chanda Paredes OD [address] [place] [address] PCP - General Optometry 12/21/16 08/07/23 documented as of this encounter
--- OUTSIDE RECORDS SUMMARY | 2025-05-27 13:41 | XMS_ITS | Clinical Summary ---
Author Organization [employer] Address [address] [facility] 7t [place] [address] Care Team Providers Care Public Affairs Officer Name Role Phone Unavailable Primary Care Provider [...] mandible 08/23/2024 Dental plaque 07/10/2024 Fractured dental zoroastrian with loss of materi al 07/06/2023 Dental [...] Most Recently Relevant to Health Maintenance Insurance [place] [address] ([facility] DENTAL-[facility] MEDICAID STAND ADULT
== END 2025-05-27 15:06 | disposition home or self-care (01) ==
LOC: HO.HWS 10:45
PROVIDERS: PCP Internal Medicine; Visit Provider Obstetrics & Gynecology
DX: N93.9 Abnormal uterine and vaginal bleeding, unspecified (principal); Z32.02 Encounter for pregnancy test, result negative
CPT/HCPCS: 58100

== ENCOUNTER 2025-06-17 16:08 | Outpatient (AMB) | payer OTHER, SELFPAY ==
--- NOTE | 2025-06-17 16:08 | MHC.OFFVIS ---
Vital Signs 06/17/25 16:11 Height 5 ft 7 in Weight 204 lb BMI 31.9 BP 118/70 Intake Visit Reasons: Annual/EMB Results Warehouse Engineer Required: Yes Warehouse Engineer Language: Project Manager Industrial Services: Warehouse Engineer Present (in person) Warehouse Engineer Name: Korean Information Interpreted: non-clinical & clinical Carpenter Assembler: Carpenter Assembler Present (Diane ALVARADO) Accompanied by: Self / Same As Patient Allergies nicotine Allergy (Intermediate, Verified 06/17/25 16:14) Rash metformin Adverse Reaction (Intermediate, Verified 06/17/25 16:14) stomach upset, diarrhea HPI Comments Details: Presenting for annual exam. No complaints. Last Pap/HPV was negative in 06/21 Last Mammogram was BI-RADS 2 in 09/24 [facility] Medical History MARÍA (generalized anxiety disorder) Right knee pain Microalbuminuria Heel spur Right elbow pain Hand numbness Mild asthma Dyslipidemia Diabetes mellitus Surgical History History of repair of rotator cuff Family History Father Diabetes Hypertension Kidney disease Mother Diabetes Fibromyalgia Brother No problems noted. Paternal Grandmother Stroke Social History Housing: Apartment Alcohol intake: current Alcohol intake frequency: holidays/special occasions only Alcohol type: hard liquor Patient Tobacco Use Status: Current everyday Tobacco user Tobacco use type: Cigarette Cigarettes Per Day: 8 e-Cigarette/Vaping Use: Never Used Second Hand Smoke Exposure: No service: No Current occupational status: employed Current occupational exposures/hazards: No Cognitive needs: No Hearing needs: No Vision needs: Yes (Glasses) Female Reproductive History Menstrual Age of Menarche: 13 Review of Systems Const All systems reviewed & are unremarkable except as noted in HPI and below Card Reports as per HPI Resp Reports as per HPI GI Reports as per HPI and Reports no additional complaints Reports as per HPI Physical Exam Vital Signs: Last Vital Signs BP 118/70 06/17/25 16:11 BMI result Body Mass Index 31.9 Const General: cooperative, healthy appearing and comfortable Chest Chest palpation & inspection: normal inspection of the chest and normal palpation of entire chest wall Breast/axilla inspection: normal inspection of the breasts and normal inspection of the axillae Breast/axilla palpation: normal palpation of the breasts, normal palpation of the axillae and no axillary lymphadenopathy Resp Effort & Inspection: normal respiratory effort Auscultation: clear to auscultation bilaterally Percussion: percussion normal Cardio Palpation: normal PMI Rate: regular rate Rhythm: regular rhythm Heart sounds: no murmurs and no rubs Peripheral pulses: Peripheral pulses 2+ throughout GI Inspection: Yes normal to inspection Palpation (GI): Soft to palpation, nontender, no guarding, not rigid and No hepatosplenomegaly present Percussion: Yes normal to percussion Auscultation: normal bowel sounds Rectal Exam - Female: deferred General: Yes bladder normal to palpation External Female Exam: No lesion Speculum Exam - Vagina: normal appearance of the vagina, normal palpation, normal vaginal discharge and not erythematous Speculum Exam - Cervix: normal appearance of the cervix and normal palpation Bimanual exam- vagina & uterus: normal bimanual exam, normal palpation, uterine size normal, bladder normal to palpation, consistency normal and normal palpation Bimanual Exam- Adnexa, other: normal adnexae, no masses and no tenderness Assessment & Plan Assessment & Plan (1) Well woman exam: Code(s): Z01.419 - Encounter for gynecological examination (general) (routine) without abnormal findings Category: Medical Plan: Cotesting done. Instructions given the patient to schedule next screening Mammogram in 09/25. Counseled the patient about the recommended dietary allowance of 1000 mg of Calcium & 600 IU of vitamin D. The patient was instructed to perform monthly self-breast exams and to schedule an annual exam in a year; All questions answered and the patient verbalized understanding. Instructed the patient to schedule annual exam in a year Coding Level of Care Code Est Pt Prev Care 40-64y([address]) Diagnoses Well woman exam Z01.419
[2025-06-17 16:11] VITALS: BP 118/70; BMI 31.9
== END 2025-06-17 16:26 | disposition home or self-care (01) ==
LOC: HO.HWS 16:08
PROVIDERS: PCP Internal Medicine; Visit Provider Obstetrics & Gynecology
DX: Z01.419 Encounter for gynecological examination (general) (routine) without abnormal findings (principal)
CPT/HCPCS: 99396; 99459

== ENCOUNTER → 2025-06-17 16:08 | Outpatient (BNVA) | payer OTHER, SELFPAY | PROVIDERS: PCP Internal Medicine; Visit Provider Obstetrics & Gynecology | DX: Z01.419 Encounter for gynecological examination (general) (routine) without abnormal findings (principal) | CPT/HCPCS: 99396 ==

== ENCOUNTER 2025-07-19 10:30 | Outpatient (REF) | payer OTHER, SELFPAY ==
--- OUTSIDE RECORDS SUMMARY | 2025-07-19 10:34 | XMS_ITS | Encounter Summary ---
Author Organization [employer] Address [address] [facility] 7t [place] [address] Care Team Providers Care Lead Case Manager Name Role Phone Unavailable Primary Care Provider Unavailabl e Reason for Visit * Reason Onset Date Comments mandibular partial tx planned not requested 10/2024 Encounter Details Date Type Department Care Team ([facility] Contact Info) Description 08/03/2024 Refill [facility] ADULT DENTAL [address] [place] [address] Samuel Guaman, DDS [address] [place] [address] Dental abscess Social History Tobacco Use Types [...] doesn't have those molars either. For front desk receptionist pls reach out to patient for scheduling DR * Telephone Encounter - Ildefonso Encarnacion DMD - 08/05/2024 8:21 AM EST Please follow up with Dr. Guaman documented in this encounter Plan of Treatment Not on file documented as of this encounter Visit Diagnoses Diagnosis Dental abscess Periapical abscess without sinus documented in this encounter
--- OUTSIDE RECORDS SUMMARY | 2025-07-19 10:34 | XMS_ITS | Clinical Summary ---
Author Organization [facility] Address [address] [address] Phone Care Team Providers Care Ironworker Name Role Phone Amanda Horan MD Primary [...] Subscriber Plan / Payer (Ef fective 2020-Present) Name:Seinna Cunningham Relation to Subscriber:Self Name:Sienna Cunningham Payer ID:Not on file Group ID:FAX # [phone] Type:Indemnity Address: [address] [address] Care Teams Ironworker Relationship Specialty Start Date End Date Amanda Horan MD [address] [place] [address] PCP - General Internal Medicine 08/31/20 Additional Source Comments The information contained in this document represents components of the legal health record. It is not the complete legal health record.[facility]
--- OUTSIDE RECORDS SUMMARY | 2025-07-19 10:34 | XMS_ITS | Clinical Summary ---
Author Organization [facility] Address [address] [place] [address] Care Team Providers Care Cafeteria Assistant Name Role Phone Amanda Horan MD Primary Care Provider [phone] Allergies No known active allergies Medications Acetaminophen [...] Exam 10/26/2021 Influenza Vaccine (#1) 2025 Insurance [facility] Medicaid Care Teams Cafeteria Assistant Relationship Specialty Start Date End Date Amanda Horan MD [address] [place], [place] PCP - General Internal Medicine 10/25/21
--- OUTSIDE RECORDS SUMMARY | 2025-07-19 10:34 | XMS_ITS | Encounter Summary ---
Author Organization [email or web address] Address [address] [facility] 7 [place] [address] Care Team Providers Care Insurance Sales Executive Name Role Phone Chanda Paredes OD Primary Care Provider Encounter Details Date Type Department Care Team [...] on filedocumented in this encounter Care Teams Insurance Sales Executive Relationship Specialty Start Date End Date Chanda Paredes OD [address] [place] [address] PCP - General Optometry 12/21/16 08/07/23 documented as of this encounter
--- OUTSIDE RECORDS SUMMARY | 2025-07-19 10:34 | XMS_ITS | Encounter Summary ---
Author Organization [employer] Address [address] [facility] [address] [place] [address] Care Team Providers Care Program Schedule Clerk Name Role Phone Chanda Paredes OD Primary Care Provider [phone] Encounter Details Date Type Department Care Team (Latest Contact Info) Description 02/01/2019 Abstract [facility] CONVERSIONS Dental, Provider, DDS Social [...] on filedocumented in this encounter Care Teams Program Schedule Clerk Relationship Specialty Start Date End Date Chanda Paredes OD [address] [place] [address] PCP - General Optometry 12/21/16 08/07/23 documented as of this encounter
--- OUTSIDE RECORDS SUMMARY | 2025-07-19 10:34 | XMS_ITS | Clinical Summary ---
Author Organization [employer] Address [address] [facility] 7t [place] [address] Care Team Providers Care Hotel Controller Name Role Phone Unavailable Primary Care Provider [...] mandible 08/23/2024 Dental plaque 07/10/2024 Fractured dental rastafarian with loss of materi al 07/06/2023 Dental [...] Most Recently Relevant to Health Maintenance [place] [address] [address] [place] [address] ([facility]) DENTAL-[facility] MEDICAID STAND ADULT
[2025-07-19 11:27] LABS: Alanine Aminotransferase 32 U/L (0-31); Albumin Level 4.5 g/dL (3.5-5.0); Alkaline Phosphatase 112 U/L (39-117); Anion Gap 13 (12-20); Aspartate Amino Transferase 20 U/L (5-31); Blood Urea Nitrogen 14 mg/dL (9-16); Calcium 9.4 mg/dL (8.4-10.2); Carbon Dioxide 23 mmol/L (22-29); Chloride 111 mmol/L (96-108); Cholesterol 124 mg/dL (<200); Estimated Glomerular Filt Rate > 60; HDL Cholesterol 35 mg/dL (>40); Potassium 4.2 mmol/L (3.3-5.1); Sodium 143 mmol/L (135-145); Total Protein 7.3 g/dL (6.5-8.0); Triglycerides 115 mg/dL (<150)
[2025-07-19 12:24] LABS: Microalbum/Creatinine Ratio Ur 7.2 ug/mg cr (<30)
== END 2025-07-19 10:31 | disposition home or self-care (01) ==
LOC: HO.LAB 10:30
PROVIDERS: PCP Internal Medicine; Visit Provider Internal Medicine
DX: E11.9 Type 2 diabetes mellitus without complications (principal); E78.5 Hyperlipidemia, unspecified; R80.9 Proteinuria, unspecified; E55.9 Vitamin D deficiency, unspecified
CPT/HCPCS: 36415; 80053; 80061; 82043; 82306; 82570

== ENCOUNTER 2025-07-22 14:59 | Outpatient (AMB) | payer OTHER, SELFPAY ==
[2025-07-22 15:03] VITALS: BP 130/78; PULSE 90; RESP 16; TEMP 36.2; O2SAT 94; BMI 31.8
--- NOTE | 2025-07-22 15:03 | A.OFFPC_ITS ---
Vital Signs 07/22/25 15:03 Height 5 ft 7 in Weight 203 lb 2 oz BMI 31.8 BP 130/78 Blood Pressure Location Lt brachial Position Sitting Respiration 16 Pulse 90 Pulse Source Pulse Oximeter Temp 97.1 F Temp Source Temporal Artery Scan Pulse Oximetry (%) 94 Oxygen Delivery Method Room Air Intake Visit Reasons: dm Computer Systems Architect Required: No Accompanied by: Self / Same As Patient Allergies nicotine Allergy (Intermediate, Verified 07/22/25 15:22) Rash metformin Adverse Reaction (Intermediate, Verified 07/22/25 15:22) stomach upset, diarrhea Medication List - Last Reconciled 07/22/25 by Amanda Raphael MD acetaminophen (Tylenol Extra Strength) 500 mg PO Q6H PRN 30 days albuterol sulfate 2.5 mg (3 mL) inhalation Q6H PRN 30 days atorvastatin 40 mg PO BEDTIME 90 days betamethasone, augmented 0.05 % 1 appl topical DAILY PRN 30 days blood sugar diagnostic (FreeStyle Lite Strips) 1 strip miscellaneous BID 90 days blood-glucose meter (FreeStyle Lite Meter kit) As directed bupropion HCl XL 150 mg PO QAM 90 days empagliflozin (Jardiance) 25 mg PO DAILY 90 days fluconazole 150 mg PO Q3D 2 doses ibuprofen 800 mg PO Q8H PRN lancets As directed morphine ER (MS Contin) 15 mg PO Q12H 3 days nicotine 1 patch transdermal DAILY 28 days oxycodone-acetaminophen 5-325 mg 1 tab PO Q4-6H PRN 7 days progesterone micronized (Prometrium) 200 mg PO BEDTIME 90 days semaglutide (Ozempic) 2 mg (0.75 mL) subcut QWEEK 30 days sennosides (Senna Lax) 8.6 mg PO BEDTIME PRN 90 days tirzepatide (Mounjaro) 2.5 mg (0.5 mL) subcut QWEEK 4 weeks umeclidinium-vilanterol 62.5-25 mcg/actuation (Anoro Ellipta) 1 inh inhalation DAILY 60 days Ventolin HFA 90 mcg/actuation (albuterol sulfate) 2 puffs inhalation Q6H PRN 30 days NS Tobacco use date assessed: 07/22/25 Dental Screening Dental Screen Date: 07/22/25 Did you have a dental visit in the last 12 months?: Yes Did you have a dental problem in the last 6 months where you did not have access to dental care?: No Was dental information given to patient?: Patient has dentist HPI HPI Comments History of Present Illness Details This is a 44-year-old female with diabetes mellitus type 2, dyslipidemia, and moderate major depression that comes today complaining of right knee pain and diffuse year tachycardia with some skin lesions. A1c of 6.8% today therefore within goal. LDL within goal being less than 70. Depression stable with bupropion. Will order x-ray of knee and will referred to dermatology for skin lesions. [facility] Medical History (Updated 07/22/25 @ 15:33 by Amanda Raphael MD) MARÍA (generalized anxiety disorder) Right knee pain Microalbuminuria Heel spur Right elbow pain Hand numbness Mild asthma Dyslipidemia Diabetes mellitus Surgical History History of repair of rotator cuff Family History Father Diabetes Hypertension Kidney disease Mother Diabetes Fibromyalgia Brother No problems noted. Paternal Grandmother Stroke Social History Housing: Apartment Alcohol intake: current Alcohol intake frequency: holidays/special occasions only Alcohol type: hard liquor Patient Tobacco Use Status: Current everyday Tobacco user Tobacco use type: Cigarette Cigarettes Per Day: 8 e-Cigarette/Vaping Use: Never Used Second Hand Smoke Exposure: No service: No Current occupational status: employed Current occupational exposures/hazards: No Cognitive needs: No Hearing needs: No Vision needs: Yes (Glasses) Female Reproductive History Menstrual Age of Menarche: 13 Questionnaire PHQ-9 Over the last 2 weeks, how often have you been bothered by any of the following problems? 1. Little interest or pleasure in doing things: several days 2. Feeling down, depressed, or hopeless: several days 3. Trouble falling or staying asleep, or sleeping too much: several days 4. Feeling tired or having little energy: several days 5. Poor appetite or overeating: nearly every day 6. Feeling bad about yourself - or that you are a failure or have let yourself or your family down: nearly every day 7. Trouble concentrating on things, such as reading the newspaper or watching television: several days 8. Moving or speaking so slowly that other people could have noticed. Or the opposite - being so fidgety or restless that you have been moving around a lot more than usual: not at all 9. Thoughts that you would be better off or of hurting yourself in some way: not at all Total score: 11 Depression Screening Interpretation: Positive Depression Screening Follow-up: Existing condition, In treatment and Follow-up Visit Requested Depression Screening Done: Yes 03240 - PHQ-9 Billing: Yes Source: Developed by Drs. Isiah Garcia, Maria Bullard, Jude Todd and colleagues, with an educational amara from [employer]. Thrive Questionnaire Date Thrive assessed: 07/22/25 I am a: Patient What is your living situation today?: I have a steady place to live Within the past 12 months, did the food you bought not last and you didn't have the money to get more?: I choose not to answer this question Within the past 12 months, did you worry whether your food would run out before you got money to buy more?: I choose not to answer this question Do you have trouble paying for medicines?: No Do you have trouble getting transportation to medical appointments?: No Do you have trouble paying your heating and electricity bill?: No Do you have trouble taking care of your child, family member or friend?: No Do you have trouble with day-to-day activities such as bathing, preparing meals, shopping, managing finances, etc.?: No Are you currently unemployed and looking for a job?: I choose not to answer this question Are you interested in more education?: No Currently or been in a relationship where the following occur: No concerns reported THRIVE Score: 0 AUDIT C Alcohol Use Questionnaire (AUDIT-C) 1. How often do you have a drink containing alcohol?: Never Total Score: 0 Score Reviewed/Action Taken: No MARÍA-7 AMB Questionnaire MARÍA-7 Date MARÍA - 7 assessed: 07/22/25 Feeling nervous, anxious, or on edge: 3 = Nearly every day Not being able to stop or control worryin = Nearly every day Worrying too much about different things: 1 = Several days Trouble relaxin = Nearly every day Being so restless that it is hard to sit still: 1 = Several days Becoming easily annoyed or irritable: 1 = Several days Feeling afraid as if something awful might happen: 0 = Not at all Total MARÍA-7 score (0-4 normal; 5-9 mild; 10-14 moderate; 15-21 severe): 12 Source: Developed by Drs. Isiah Garcia, Maria Bullard, Jude Todd and colleagues, with an educational amara from [employer]. MARÍA-7 Assessment Billing MARÍA-7 Assessment Tool: MARÍA-7 Assessment 93018 Review of Systems Const All systems reviewed & are unremarkable except as noted in HPI and below Card Denies chest pain at rest, Denies chest pain with activity, Denies edema, Denies irregular heart rhythm, Denies claudication, Denies dyspnea, Denies dyspnea on exertion, Denies orthopnea, Denies paroxysmal nocturnal dyspnea and Denies slow heart rate Resp Denies cough, Denies dyspnea and Denies dyspnea on exertion Physical exam (Primary Care) Vital Signs: Last Vital Signs Temp 97.1 F 07/22/25 15:03 Pulse 90 07/22/25 15:03 Resp 16 07/22/25 15:03 BP 130/78 07/22/25 15:03 Pulse Ox 94 07/22/25 15:03 Oxygen Delivery Method Room Air 07/22/25 15:03 BMI result Body Mass Index 31.8 Tobacco/Smoking Status: Tobacco use Status Tobacco use date assessed 07/22/25 07/22/25 15:12 Patient Tobacco Use Status Current everyday Tobacco 07/22/25 15:12 Tobacco use type Cigarette 07/22/25 15:12 e-Cigarette/Vaping Use Never Used 07/22/25 15:12 PHQ-9: PHQ-9 Score PHQ-9: Total score 11 07/22/25 15:12 Depression Screening Interpretation: Positive Depression Screening Follow-up: Existing condition, In treatment and Follow-up Visit Requested Thrive Assessment: Date of Thrive Assessment Date Thrive assessed 07/22/25 07/22/25 15:12 Currently or been in a relationship where the following occur: No concerns reported Resp Effort & Inspection: normal respiratory effort Auscultation: clear to auscultation bilaterally Cardio Jugular venous distension: no JVD Rate: regular rate Rhythm: regular rhythm Heart sounds: S1 normal heart sound present and S2 normal heart sound present Extrem General: Yes full ROM Results AMB Hemoglobin A1c AMB Hemoglobin A1c 6.8 % Last Edit by CHRISTIANO Balbuena on 07/22/25 15:33 Coding Level of Care Code Add On Preventative Visit Only Diagnoses Skin lesion L98.9 Moderate major depression F32.1 Type 2 diabetes mellitus without complication, without long-term current use of insulin E11.9 Diabetes mellitus type: type 2 Diabetes mellitus fdc insulin use: without fdc use Diabetes mellitus complication status: without complication Right knee pain M25.561 Dyslipidemia E78.5 Additional Codes MARÍA-7 Assessment Billing - MARÍA-7 Assessment Tool: MARÍA-7 Assessment 58274 ([id number]) PHQ-9 - 51581 - PHQ-9 Billing: Yes ([id number]) Time Spent (min) 21 Assessment & Plan Assessment & Plan (1) Skin lesion: Code(s): L98.9 - Disorder of the skin and subcutaneous tissue, unspecified Category: Medical (2) Moderate major depression: Code(s): F32.1 - Major depressive disorder, single episode, moderate Category: Medical (3) Diabetes mellitus: Code(s): E11.9 - Type 2 diabetes mellitus without complications Category: Medical Qualifiers: Diabetes mellitus type: type 2 Diabetes mellitus fdc insulin use: without fdc use Diabetes mellitus complication status: without complication Qualified Code(s): E11.9 - Type 2 diabetes mellitus without complications (4) Right knee pain: Code(s): M25.561 - Pain in right knee Category: Medical (5) Dyslipidemia: Code(s): E78.5 - Hyperlipidemia, unspecified Category: Medical Plan Referred to dermatology for skin lesion. X-ray order for the knee. Continue same medications for diabetes. I will increase Mounjaro. A1c goal is equal or less than 7%. LDL goal is less than 70. Orders: Orders AMB Hemoglobin A1c Today E11.9 - Type 2 diabetes mellitus without complications XR knee RT 1V Today M25.561 - Pain in right knee Referrals Dermatology Referral L98.9 - Disorder of the skin and subcutaneous tissue, unspecified Medications: New tirzepatide (Mounjaro) 5 mg (0.5 mL) subcut QWEEK 2 mL 0RF 4 weeks Discontinued tirzepatide (Mounjaro) for 4 weeks Discontinued Reason: Patient Completed Course 2.5 mg (0.5 mL) subcut QWEEK 4 weeks 2 mL 0RF
--- OUTSIDE RECORDS SUMMARY | 2025-07-22 16:18 | XMS_ITS | Clinical Summary ---
Author Organization [facility] Address [address] [address] Phone Care Team Providers Care Radio Broadcaster Name Role Phone Amanda Horan MD Primary [...] Payer ID:Not on file Group ID:FAX # [phone] Type:Indemnity Address: [address] [address] Care Teams Radio Broadcaster Relationship Specialty Start Date End Date Amanda Horan MD [address] [place] [address] PCP - General Internal Medicine 08/31/20 Additional Source Comments The information contained in this document represents components of the legal health record. It is not the complete legal health record.[facility]
--- OUTSIDE RECORDS SUMMARY | 2025-07-22 16:18 | XMS_ITS | Encounter Summary ---
Author Organization [employer] Address [address] [facility] 7 [place] [address] Care Team Providers Care Manager Lean Name Role Phone Chanda Paredes OD Primary Care Provider [phone] Encounter Details Date Type Department Care Team [...] on filedocumented in this encounter Care Teams Manager Lean Relationship Specialty Start Date End Date Chanda Paredes OD [address] [place] [address] PCP - General Optometry 12/21/16 08/07/23 documented as of this encounter
--- OUTSIDE RECORDS SUMMARY | 2025-07-22 16:18 | XMS_ITS | Encounter Summary ---
Author Organization [employer] Address 75 [facility] 7t [place] [address] Care Team Providers Care Microstrategy Bi Developer Name Role Phone Unavailable Primary Care Provider Unavailabl e Reason for Visit * Reason Onset Date Comments mandibular partial tx planned not requested 10/2024 Encounter Details Date Type Department Care Team ([facility] Contact Info) Description 08/03/2024 Refill [facility] ADULT DENTAL [address] [place] [address] Samuel Guaman, DDS [address] [place] [address] Dental abscess Social History Tobacco Use Types [...] have those molars either. For front desk coordinator pls reach out to patient for scheduling DR * Telephone Encounter - Ildefonso Encarnacion DMD - 08/05/2024 8:21 AM EST Please follow up with Dr. Guaman documented in this encounter Plan of Treatment Not on file documented as of this encounter Visit Diagnoses Diagnosis Dental abscess Periapical abscess without sinus documented in this encounter
--- OUTSIDE RECORDS SUMMARY | 2025-07-22 16:18 | XMS_ITS | Encounter Summary ---
Author Organization [employer] Address 75 [facility] [address] [place] [address] Care Team Providers Care Sewing Machine Attachment Tester Name Role Phone Chanda Paredes OD Primary Care Provider [phone] Encounter Details Date Type Department Care Team (Latest Contact Info) Description 02/01/2019 Abstract [facility] CONVERSION[facility] Dental, Provider, DDS Social History Tobacco [...] on filedocumented in this encounter Care Teams Sewing Machine Attachment Tester Relationship Specialty Start Date End Date Chanda Paredes OD [address] [place] [address] PCP - General Optometry 12/21/16 08/07/23 documented as of this encounter
--- OUTSIDE RECORDS SUMMARY | 2025-07-22 16:18 | XMS_ITS | Clinical Summary ---
Author Organization [facility] Address [address] [place] [address] Care Team Providers Care Follow Up Manager Name Role Phone Amanda Horan MD Primary Care Provider [phone] Allergies No known active allergies Medications Acetaminophen [...] Exam 10/26/2021 Influenza Vaccine (#1) 2025 [place] [address] [facility] [place] [address] Care Teams Follow Up Manager Relationship Specialty Start Date End Date Amanda Horan MD [address] [place], [place] PCP - General Internal Medicine 10/25/21
--- OUTSIDE RECORDS SUMMARY | 2025-07-22 16:19 | XMS_ITS | Clinical Summary ---
Author Organization [employer] Address 75 [facility] 7t [place] [address] Care Team Providers Care Pumping Station Supervisor Name Role Phone Unavailable Primary Care Provider [...] mandible 08/23/2024 Dental plaque 07/10/2024 Fractured dental samaritan with loss of materi al 07/06/2023 Dental [...] Most Recently Relevant to Health Maintenance Insurance [place] [address] ([facility] [place] [address] DENTAL-[facility] MEDICAID STAND ADULT
== END 2025-07-22 15:40 | disposition home or self-care (01) ==
LOC: HO.HMCH 15:00
PROVIDERS: PCP Internal Medicine; Visit Provider Internal Medicine
DX: L98.9 Disorder of the skin and subcutaneous tissue, unspecified (principal); F32.1 Major depressive disorder, single episode, moderate; E11.9 Type 2 diabetes mellitus without complications; M25.561 Pain in right knee; E78.5 Hyperlipidemia, unspecified

== ENCOUNTER → 2025-07-22 14:59 | Outpatient (BNVA) | payer OTHER, SELFPAY | PROVIDERS: PCP Internal Medicine; Visit Provider Internal Medicine | DX: F32.1 Major depressive disorder, single episode, moderate (principal); E11.9 Type 2 diabetes mellitus without complications; L98.9 Disorder of the skin and subcutaneous tissue, unspecified; M25.561 Pain in right knee; E78.5 Hyperlipidemia, unspecified; Z13.31 Encounter for screening for depression; Z13.39 Encounter for screening examination for other mental health and behavioral disorders | CPT/HCPCS: 83036; 96127; 99212 ==

== ENCOUNTER 2025-07-29 11:28 | Outpatient (REF) | payer OTHER, SELFPAY ==
--- NOTE | ~2025-07-29 | XR_ITS ---
EXAMINATION: XR KNEE 1-2 VIEWS RIGHT HISTORY: M25.561 - Pain in right knee COMPARISON: There are no prior studies available for comparison. FINDINGS: AP and lateral views of the right. are submitted. Osseous mineralization is normal. There is no fracture or dislocation. The joint spaces are preserved. The soft tissues are unremarkable. There is no joint effusion. XR/XR knee RT 2V IMPRESSION: Unremarkable examination of the right knee. Electronically signed by: Isiah Mays MD 07/29/2025 11:57 AM EST
--- OUTSIDE RECORDS SUMMARY | 2025-07-29 15:32 | XMS_ITS | Encounter Summary ---
Author Organization [employer] Address [address] [facility] 7t [place] [address] Care Team Providers Care Echo Technician Name Role Phone Unavailable Primary Care Provider Unavailabl e Reason for Visit * Reason Onset Date Comments mandibular partial tx planned not requested 10/2024 Encounter Details Date Type Department Care Team ([facility] Contact Info) Description 08/03/2024 Refill [facility] ADULT DENTAL [address] [place] [address] Samuel Guaman, DDS [address] [place] [address] Dental abscess Social History Tobacco Use Types [...] andand doesn't have those molars either. For service desk associate pls reach out to patient for scheduling DR * Telephone Encounter - Ildefonso Encarnacion DMD - 08/05/2024 8:21 AM EST Please follow up with Dr. Guaman documented in this encounter Plan of Treatment Not on file documented as of this encounter Visit Diagnoses Diagnosis Dental abscess Periapical abscess without sinus documented in this encounter
--- OUTSIDE RECORDS SUMMARY | 2025-07-29 15:33 | XMS_ITS | Encounter Summary ---
Author Organization [employer] Address 75 [facility] 7 [place] [address] Care Team Providers Care Flow Machine Operator Name Role Phone Chanda Paredes OD Primary Care Provider [phone] Encounter Details Date Type Department Care Team [...] on filedocumented in this encounter Care Teams Flow Machine Operator Relationship Specialty Start Date End Date Chanda Paredes OD [address] [place] [address] PCP - General Optometry 12/21/16 08/07/23 documented as of this encounter
--- OUTSIDE RECORDS SUMMARY | 2025-07-29 15:33 | XMS_ITS | Clinical Summary ---
Author Organization [facility] Address [address] [address] Phone Care Team Providers Care Unit Director Name Role Phone Amanda Horan MD Primary [...] Payer ID:Not on file Group ID:FAX # [phone] Type:Indemnity Address: [address] [address] Care Teams Unit Director Relationship Specialty Start Date End Date Amanda Horan MD [address] [place] [address] PCP - General Internal Medicine 08/31/20 Additional Source Comments The information contained in this document represents components of the legal health record. It is not the complete legal health record.[facility]
--- OUTSIDE RECORDS SUMMARY | 2025-07-29 15:33 | XMS_ITS | Encounter Summary ---
Author Organization [employer] Address [address] [facility] [address] [place] [address] Care Team Providers Care Jewelry Casting Model Maker Name Role Phone Chanda Paredes OD Primary Care Provider [phone] Encounter Details Date Type Department Care Team (Latest Contact Info) Description 02/01/2019 Abstract [facility] CONVERSIONS Dental, Provider, DDS Social History [...] on filedocumented in this encounter Care Teams Jewelry Casting Model Maker Relationship Specialty Start Date End Date Chanda Paredes OD [address] [place] [address] PCP - General Optometry 12/21/16 08/07/23 documented as of this encounter
--- OUTSIDE RECORDS SUMMARY | 2025-07-29 15:33 | XMS_ITS | Clinical Summary ---
Author Organization [employer] Address [address] [facility] 7t [place] [address] Care Team Providers Care Adviser Sales Name Role Phone Unavailable Primary Care Provider [...] mandible 08/23/2024 Dental plaque 07/10/2024 Fractured dental bahai with loss of materi al 07/06/2023 Dental [...] Most Recently Relevant to Health Maintenance [place] [address] [place] [address] ([facility]) [facility]AL-[facility] MEDICAID STAND ADULT
--- OUTSIDE RECORDS SUMMARY | 2025-07-29 15:33 | XMS_ITS | Clinical Summary ---
Author Organization [facility] Facility Address [address] [place] [address] Care Team Providers Care Import Manager Name Role Phone Amadna Horan MD Primary Care Provider [phone] Allergies No known active allergies Medications Acetaminophen [...] Exam 10/26/2021 Influenza Vaccine (#1) 2025 Insurance [facility] Medicaid Care Teams Import Manager Relationship Specialty Start Date End Date Amanda Horan MD [address] [place], [place] PCP - General Internal Medicine 10/25/21
== END 2025-07-29 11:29 ==
LOC: HO.XRAY 11:28
PROVIDERS: PCP Internal Medicine; Visit Provider Internal Medicine
DX: M25.561 Pain in right knee (principal)
CPT/HCPCS: 73560

== ENCOUNTER → 2025-07-29 11:31 | Outpatient (BNV) | payer OTHER, SELFPAY | PROVIDERS: PCP Internal Medicine; Visit Provider Radiology Diagnostic Radiology | DX: M25.561 Pain in right knee (principal) | CPT/HCPCS: 73560 ==